=== PATIENT | male | born 1950 | race Caucasian/White ===

== ENCOUNTER 2020-09-30 07:34 | Outpatient (REF) | payer MEDICARE, SELFPAY ==
[2020-09-30 09:02] LABS: MANUAL DIFF FLAG NO
[2020-09-30 09:09] LABS: Basophils Absolute Auto 0.1 X10*3/uL (0.0-0.2); Basophils Percent Auto 1.1 % (0-2); Eosinophils Absolute Auto 0.4 X10*3/uL (0.0-0.4); Eosinophils Percent Auto 5.5 % (0-4); Hematocrit 47.9 % (42-52); Imm Gran Abs Auto 0.02 X10*3/uL (0.00-0.03); Imm Gran Pct Auto 0.3 % (0.0-0.4); Lymphocytes Absolute Auto 2.1 X10*3/uL (1.2-4.9); Lymphocytes Percent Auto 33.2 % (20-40); Mean Corpuscular HGB Conc 33.4 g/dl (31.0-36.0); Mean Corpuscular Hemoglobin 29.7 pg (27.0-33.0); Mean Platelet Volume 10.4 fL (9.4-12.4); Monocytes Absolute Auto 0.7 X10*3/uL (0.1-1.2); Monocytes Percent Auto 10.2 % (2-11); Neutrophils Absolute Auto 3.2 X10*3/uL (2.0-8.3); Neutrophils Percent Auto 49.7 % (45-73); Platelet Count 349 X10*3/uL (160-400); Red Blood Count 5.38 X10*6/uL (4.60-5.80); White Blood Count 6.4 X10*3/uL (4.8-10.8)
[2020-09-30 09:17] LABS: Glucose Urine UA NEG (NEG); Leukocyte Esterase Urine NEG (NEG); Nitrite Urine NEG (NEG); PH 6.5 (5.0-8.0); Urine Blood NEG (NEG); Urine Ketones NEG (NEG); Urine Protein NEG (NEG-TRACE)
[2020-09-30 09:18] LABS: Appearance Urine CLEAR; Color Urine YELLOW
[2020-09-30 09:33] LABS: Alanine Aminotransferase 12 U/L (0-40); Albumin Level 4.3 g/dL (3.5-5.0); Alkaline Phosphatase 84 U/L (39-117); Anion Gap 12 (12-20); Aspartate Amino Transferase 16 U/L (5-37); Bilirubin Total 0.7 mg/dL (0.0-1.0); Blood Urea Nitrogen 14 mg/dL (9-16); Calcium 8.7 mg/dL (8.4-10.2); Carbon Dioxide 24 mmol/L (22-29); Chloride 103 mmol/L (96-108); Cholesterol 194 mg/dL; Estimated Glomerular Filt Rate > 60; Glucose Fasting 98 mg/dL (60-99); HDL Cholesterol 48 mg/dL; LDL Cholesterol Calculated 106 mg/dl; Potassium 4.4 mmol/l (3.3-5.1); Sodium 135 mmol/L (135-145); Total Protein 7.1 g/dL (6.5-8.0); Triglycerides 201 mg/dL
[2020-09-30 09:56] LABS: Prostate Specific Antigen 4.38 ng/mL (<0.05-4.0)
== END 2020-09-30 07:35 | disposition home or self-care (01) ==
LOC: HO.LAB 07:34
PROVIDERS: Visit Provider Internal Medicine
DX: E78.00 Pure hypercholesterolemia, unspecified (principal); I10 Essential (primary) hypertension; N40.0 Benign prostatic hyperplasia without lower urinary tract symptoms; K21.9 Gastro-esophageal reflux disease without esophagitis; M19.90 Unspecified osteoarthritis, unspecified site
CPT/HCPCS: 36415; 80053; 80061; 81003; 84153; 85025

== ENCOUNTER 2020-11-30 15:35 | Outpatient (REF) | payer MEDICARE, BC, SELFPAY | END 2020-11-30 15:36 | disposition home or self-care (01) | LOC: HO.LNP 15:35 | PROVIDERS: Visit Provider Internal Medicine | DX: Z20.822 Contact with and (suspected) exposure to COVID-19 (principal) | CPT/HCPCS: U0003 ==

== ENCOUNTER → 2021-01-27 09:52 | Outpatient (REF) | payer MEDICARE, BC, SELFPAY | LOC: HO.SL 09:52 | PROVIDERS: PCP Internal Medicine; Visit Provider Internal Medicine | DX: G47.33 Obstructive sleep apnea (adult) (pediatric) (principal); R06.83 Snoring | CPT/HCPCS: 95806 ==

== ENCOUNTER → 2021-02-08 13:01 | Outpatient (BNVA) | payer MEDICARE, BC, SELFPAY | PROVIDERS: PCP Internal Medicine; Visit Provider Internal Medicine | DX: G47.33 Obstructive sleep apnea (adult) (pediatric) (principal); G47.34 Idiopathic sleep related nonobstructive alveolar hypoventilation; E66.9 Obesity, unspecified; Z68.30 Body mass index [BMI] 30.0-30.9, adult; Z71.3 Dietary counseling and surveillance; Z79.899 Other long term (current) drug therapy; Z99.89 Dependence on other enabling machines and devices | CPT/HCPCS: 99202 ==

== ENCOUNTER → 2021-02-15 19:30 | Outpatient (REF) | payer MEDICARE, BC, SELFPAY | LOC: HO.SL 19:30 | PROVIDERS: Visit Provider Internal Medicine | DX: G47.34 Idiopathic sleep related nonobstructive alveolar hypoventilation (principal); G47.33 Obstructive sleep apnea (adult) (pediatric) | CPT/HCPCS: 95811 ==

== ENCOUNTER → 2021-04-27 09:51 | Outpatient (BNVA) | payer MEDICARE, BC, SELFPAY | PROVIDERS: PCP Internal Medicine; Visit Provider Internal Medicine | DX: G47.33 Obstructive sleep apnea (adult) (pediatric) (principal); G47.34 Idiopathic sleep related nonobstructive alveolar hypoventilation; E66.9 Obesity, unspecified; Z68.30 Body mass index [BMI] 30.0-30.9, adult; Z99.89 Dependence on other enabling machines and devices; Z79.899 Other long term (current) drug therapy; Z71.3 Dietary counseling and surveillance | CPT/HCPCS: 99212 ==

== ENCOUNTER 2021-04-30 08:30 | Day surgery (SDC) | payer MEDICARE, BC, SELFPAY ==
[2021-04-27 10:40] VITALS: BMI 31.8
--- NOTE | 2021-04-28 14:56 | HO.ANESPROP2 ---
Documented by User: Kassi Dixon 04/28/21 14:57 HPI - Anesthesia Eval Consult details Narrative: 71yo M for Colonoscopy PMFSH Active Problems Active Problems: All Active Problems (Updated 04/27/21 @ 10:39 by aRchel Mendoza) Nocturnal hypoxemia (Acute) OLI (obstructive sleep apnea) (Acute) Obesity (BMI 30-39.9) (Acute) Past Medical History Medical History Arthritis Elevated cholesterol GERD (gastroesophageal reflux disease) History of COVID-19 HTN (hypertension) Irritable bowel syndrome (IBS) Nocturnal hypoxemia Obesity (BMI 30-39.9) OLI (obstructive sleep apnea) Surgical History Surgical History H/O colonoscopy Hx of appendectomy Hx of foot surgery Social History Social History Household Members: Spouse Alcohol intake: current Alcohol intake frequency: a few times a week Patient Tobacco Use Status: Tobacco use Unknown Advance Directives Information Provided: No Meds Allergies Allergy/AdvReac Type Severity Reaction Status Date / Time No Known Allergies Allergy Verified 04/30/21 09:01 Home Medications Medication Instructions Recorded Confirmed Last Taken Type amlodipine 10 mg tablet 10 mg PO DAILY 02/08/21 04/27/21 04/30/21 07:00 History desonide 0.05 % topical cream 1 appl TOPICAL QID 02/08/21 04/27/21 Unknown History ibuprofen 800 mg tablet 800 mg PO BID PRN 02/08/21 04/27/21 Unknown History ketoconazole 2 % shampoo 1 appl TOPICAL 2XW 02/08/21 04/27/21 Unknown History ketoconazole 2 % topical cream 1 appl TOPICAL DAILY 02/08/21 04/27/21 Unknown History lisinopril 10 mg tablet 10 mg PO DAILY 02/08/21 04/27/21 Unknown History omeprazole 20 mg capsule,delayed 20 mg PO DAILY 02/08/21 04/27/21 04/30/21 07:00 History release simvastatin 20 mg tablet 20 mg PO DAILY 02/08/21 04/27/21 Unknown History triamcinolone acetonide 0.1 % 1 appl TOPICAL DIRECTED 02/08/21 04/27/21 Unknown History topical cream dicyclomine 20 mg tablet 20 mg PO QID 04/27/21 04/27/21 Unknown History Exam Exam Date and Time: April 28, 2021 1456 Height,Weight and Vital Signs: Height 5 ft 5 in Weight 86.636 kg Assessment and Plan Assessment Anesthesia Assessment: Chart Reviewed Documented by User: Clari Noyola 04/30/21 09:24 [facility]LY [facility] Past Medical History Medical History Arthritis Elevated cholesterol GERD (gastroesophageal reflux disease) History of COVID-19 HTN (hypertension) Irritable bowel syndrome (IBS) Nocturnal hypoxemia Obesity (BMI 30-39.9) OLI (obstructive sleep apnea) Family History Family history of problems with anesthesia: No Surgical History Surgical History H/O colonoscopy Hx of appendectomy Hx of foot surgery History of Problems with Anesthesia: No Social History Social History Household Members: Spouse Alcohol intake: current Alcohol intake frequency: a few times a week Patient Tobacco Use Status: Tobacco use Unknown Advance Directives Information Provided: No Meds Allergies Allergy/AdvReac Type Severity Reaction Status Date / Time No Known Allergies Allergy Verified 04/30/21 09:01 Home Medications Medication Instructions Recorded Confirmed Last Taken Type amlodipine 10 mg tablet 10 mg PO DAILY 02/08/21 04/27/21 04/30/21 07:00 History desonide 0.05 % topical cream 1 appl TOPICAL QID 02/08/21 04/27/21 Unknown History ibuprofen 800 mg tablet 800 mg PO BID PRN 02/08/21 04/27/21 Unknown History ketoconazole 2 % shampoo 1 appl TOPICAL 2XW 02/08/21 04/27/21 Unknown History ketoconazole 2 % topical cream 1 appl TOPICAL DAILY 02/08/21 04/27/21 Unknown History lisinopril 10 mg tablet 10 mg PO DAILY 02/08/21 04/27/21 Unknown History omeprazole 20 mg capsule,delayed 20 mg PO DAILY 02/08/21 04/27/21 04/30/21 07:00 History release simvastatin 20 mg tablet 20 mg PO DAILY 02/08/21 04/27/21 Unknown History triamcinolone acetonide 0.1 % 1 appl TOPICAL DIRECTED 02/08/21 04/27/21 Unknown History topical cream dicyclomine 20 mg tablet 20 mg PO QID 04/27/21 04/27/21 Unknown History Exam Height,Weight and Vital Signs: Vital Signs Temp Pulse Resp BP Pulse Ox 04/30/21 09:02 97.6 F 79 20 159/77 H 95 Airway Mallampati Class: II TM Dist: >3cm Neck ROM: Full Denture: Upper Heart: RRR Lungs: CTAB Assessment and Plan Assessment Anesthesia Assessment: Anesthesia Plan Discussed and Chart Reviewed Final Anesthetic Review NPO: Yes ASA Class: III Final Preanesthetic Review: No Changes in Pt Med Stat, Meds/Allgs Chart Reviewed, Consent Obtained/Reviewed and Anes Risks/Benef Reviewed Patient Risk: Intermediate Procedure Risk: Low Assessment/Block/Sedation in SS: Assess/Block/Sedation-SS Anesthetic Plan Anesthetic Plan: MAC: Disposition: Standard PACU
[2021-04-30 09:02] VITALS: BP 159/77; PULSE 79; RESP 20; TEMP 36.4; O2SAT 95
--- NOTE | 2021-04-30 09:22 | MHC.SHP ---
Pre-Procedural Eval Section B Chief Complaint: screening Details of Present Illness: see H&P no changes Relevant Family History (Specify if Yes): Yes Relevant Social History: None Present Medications: see Short Stay Collaborative assessment Medical History: No relevant PMH History of Previous Operations: No relevant previous surgery Allergies: Allergies Allergy/AdvReac Type Severity Reaction Status Date / Time No Known Allergies Allergy Verified 04/30/21 09:01 Review of Systems Sugical H&P ROS: Negative: Constitution, Cardiovascular, Respiratory, Neurological, Psychiatric, Hem-Onc, Allergic/Immunologic, Gastrointestinal, Genitourinary, Musculoskeletal, Integumentary, Endocrine and Eyes/Ears/Nose/Throat Exam Surgical H&P Exam: Normal: HEENT, Normal: Heart, Normal: Lungs, Normal: Extremities, Normal: Abdomen, Normal: Skin and Normal: Neurological Plan Diagnosis/Plan: Unchanged I have reviewed the history and physical and performed a pertinent physical examination on my patient. No changes have occurred unless specified.
[2021-04-30] MEDS: Lactated Ringers 1,000 ML 100 ML IVCONT (09:29)
--- NOTE | 2021-04-30 09:55 | P.BOP_ITS ---
Brief Operative Note Date of Service: 04/30/21 Pre-op diagnosis: screening Post-op diagnosis: same Procedure: colonosocpy Surgeon: Bradley Bell Anesthesia: MAC Was an Body Make Up Artist used for this Procedure?: No Estimated blood loss (mL): 5 Pathology: other (polyp x1) Condition: stable Disposition: PACU
[2021-04-30 10:00] VITALS: BP 110/60; PULSE 73; RESP 12; TEMP 36.2; O2SAT 96
[2021-04-30 10:15] VITALS: BP 125/68; PULSE 70; RESP 16; TEMP 36.2; O2SAT 96
--- NOTE | 2021-04-30 10:46 | OP_ITS ---
SURGEON: Bradley Bell MD INDICATIONS: Colon cancer screening. PREOPERATIVE DIAGNOSIS: POSTOPERATIVE DIAGNOSIS: PROCEDURE PERFORMED: Colonoscopy to the terminal ileum with biopsy. ESTIMATED BLOOD LOSS: COMPLICATIONS: ANESTHESIA: ASSISTANTS: SPECIMENS: MEDICATIONS: Monitored anesthesia care. DESCRIPTION OF PROCEDURE: History and physical performed, the risks and benefits of the procedure were explained to the patient. Informed consent was obtained. The patient was placed in left lateral decubitus position. A digital rectal exam was performed and it was found to be normal. The Olympus pediatric video colonoscope was introduced into the rectum and advanced to the cecum without difficulty. The cecum was identified by transillumination, palpation, and identification of ileocecal valve. Examination was performed. The scope was removed. He tolerated the procedure well and was taken to recovery area in stable condition. FINDINGS: The terminal ileum was briefly examined and it appeared normal. The visualized colonic mucosa was normal. There was some liquid stool coating the mucosa. This was washed and suctioned as best possible. A single polyp measuring less than 5 mm was removed with biopsy forceps located at 80 cm from the anal verge. No other polyps were identified. Retroflexed examination showed moderate-sized internal hemorrhoids. IMPRESSION: Colon polyp. RECOMMENDATION: Follow up with the biopsy results. MD ROSEANNE Andrade/CAMIL / [id number]
== END 2021-04-30 11:07 | disposition home or self-care (01) ==
PROVIDERS: PCP Internal Medicine; Visit Provider Internal Medicine Gastroenterology
PROC: 0DJD8ZZ Inspection of Lower Intestinal Tract, Via Natural or Artificial Opening Endoscopic (ICD-10-PCS; CPT 45378; principal; 2021-04-30 09:40)
DX: Z12.11 Encounter for screening for malignant neoplasm of colon (principal); Z80.0 Family history of malignant neoplasm of digestive organs; D12.4 Benign neoplasm of descending colon; K64.8 Other hemorrhoids; K21.9 Gastro-esophageal reflux disease without esophagitis; K58.9 Irritable bowel syndrome, unspecified; I10 Essential (primary) hypertension; E78.5 Hyperlipidemia, unspecified; G47.33 Obstructive sleep apnea (adult) (pediatric); Z79.899 Other long term (current) drug therapy; Z79.1 Long term (current) use of non-steroidal anti-inflammatories (NSAID)
CPT/HCPCS: 45380; 88305

== ENCOUNTER → 2021-09-02 09:54 | Outpatient (BNVA) | payer MEDICARE, BC, SELFPAY | PROVIDERS: PCP Internal Medicine; Visit Provider Internal Medicine | DX: E66.9 Obesity, unspecified (principal); G47.33 Obstructive sleep apnea (adult) (pediatric) | CPT/HCPCS: 99212 ==

== ENCOUNTER 2021-10-11 08:28 | Outpatient (REF) | payer MEDICARE, BC, SELFPAY ==
[2021-10-11 08:46] LABS: MANUAL DIFF FLAG NO
[2021-10-11 09:12] LABS: Basophils Absolute Auto 0.1 X10*3/uL (0.0-0.2); Basophils Percent Auto 0.9 % (0-2); Eosinophils Absolute Auto 0.5 X10*3/uL (0.0-0.4); Eosinophils Percent Auto 7.1 % (0-4); Hematocrit 46.6 % (42.0-52.0); Hemoglobin 15.7 g/dl (14.0-18.0); Imm Gran Abs Auto 0.03 X10*3/uL (0.00-0.03); Imm Gran Pct Auto 0.4 % (0.0-0.4); Lymphocytes Absolute Auto 1.9 X10*3/uL (1.2-4.9); Lymphocytes Percent Auto 25.3 % (20-40); Mean Corpuscular HGB Conc 33.7 g/dl (31.0-36.0); Mean Corpuscular Hemoglobin 29.1 pg (27.0-33.0); Mean Corpuscular Volume 86.5 fL (80.0-98.0); Mean Platelet Volume 9.7 fL (9.4-12.4); Monocytes Absolute Auto 0.7 X10*3/uL (0.1-1.2); Monocytes Percent Auto 9.8 % (2-11); Neutrophils Absolute Auto 4.3 x10*3/uL (2.0-8.3); Neutrophils Percent Auto 56.5 % (45-73); Platelet Count 338 X10*3/uL (160-400); Red Blood Count 5.39 X10*6/uL (4.60-5.80); Red Cell Distribution Width 13.6 % (11.0-16.0); White Blood Count 7.6 X10*3/uL (4.8-10.8)
[2021-10-11 09:40] LABS: Alanine Aminotransferase 18 U/L (0-40); Albumin Level 4.3 g/dL (3.5-5.0); Alkaline Phosphatase 89 U/L (39-117); Anion Gap 15 (12-20); Aspartate Amino Transferase 17 U/L (5-37); Bilirubin Total 0.6 mg/dL (0.0-1.0); Blood Urea Nitrogen 10 mg/dL (9-16); Calcium 8.9 mg/dL (8.4-10.2); Carbon Dioxide 20 mmol/L (22-29); Chloride 108 mmol/L (96-108); Cholesterol 179 mg/dL; Estimated Glomerular Filt Rate > 60; Glucose Fasting 106 mg/dL (60-99); HDL Cholesterol 45 mg/dL; LDL Cholesterol Calculated 108 mg/dl; Potassium 4.4 mmol/L (3.3-5.1); Sodium 139 mmol/L (135-145); Total Protein 7.2 g/dL (6.5-8.0); Triglycerides 134 mg/dL
[2021-10-11 10:03] LABS: Prostate Specific Antigen 5.03 ng/mL (<0.05-4.0)
== END 2021-10-11 08:29 | disposition home or self-care (01) ==
LOC: HO.LAB 08:28
PROVIDERS: PCP Internal Medicine; Visit Provider Internal Medicine
DX: Z12.5 Encounter for screening for malignant neoplasm of prostate (principal); I10 Essential (primary) hypertension; E78.00 Pure hypercholesterolemia, unspecified; N40.0 Benign prostatic hyperplasia without lower urinary tract symptoms; M19.90 Unspecified osteoarthritis, unspecified site
CPT/HCPCS: 36415; 80053; 80061; 84153; 85025

== ENCOUNTER 2021-10-15 11:30 | Outpatient (REF) | payer MEDICARE, BC, SELFPAY ==
--- NOTE | ~2021-10-15 | XR_ITS ---
EXAMINATION: XR LUMBOSACRAL SPINE CLINICAL INFORMATION: Back pain. COMPARISON: MR lumbar spine dated from 04/18/2017. TECHNIQUE: Three views of the lumbosacral spine. FINDINGS: There is very mild 1- 2 mm of anterolisthesis of L5 on S1 which is similar when compared to the study from 2017. No evidence of acute compression deformities or malalignment. There is moderate lumbar spondylosis with disc space narrowing, osteophytes and bilateral facet arthropathy at multiple levels leading to varying degrees of neural foraminal encroachment and central spinal canal stenosis. Atherosclerotic disease of the abdominal aorta. XR/XR lumbar spine 2-3V IMPRESSION: No acute fractures or malalignment. Mild to moderate lumbar spondylosis leading to varying degrees of neural foraminal encroachment and central canal narrowing which could be better assessed with an MR of the lumbar spine if clinically indicated.
--- NOTE | ~2021-10-15 | XR_ITS ---
EXAMINATION: XR PELVIS CLINICAL INFORMATION: Pain. COMPARISON: None TECHNIQUE: CT of the abdomen and pelvis dated from 04/24/2014. FINDINGS: No acute fractures or malalignment. The femoral heads are well-seated in the acetabula. There are mild to moderate degenerative changes in both hips. There are enthesophytes in both ischial tuberosities. There is a normal appearance of the sacroiliac joints. XR/XR pelvis 1-2V IMPRESSION: No acute fractures or malalignment. 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
== END 2021-10-15 11:31 | disposition home or self-care (01) ==
LOC: HO.XRAY 11:30
PROVIDERS: PCP Internal Medicine; Visit Provider Internal Medicine
DX: M54.9 Dorsalgia, unspecified (principal)
CPT/HCPCS: 72100; 72170

== ENCOUNTER 2021-10-29 14:56 | Outpatient (REF) | payer MEDICARE, BC, SELFPAY ==
--- NOTE | ~2021-10-29 | MR_ITS ---
EXAMINATION: MR LUMBAR SPINE WITHOUT CONTRAST CLINICAL INFORMATION: 71-year-old with complaints of low back pain with shooting pain on the right side. Spondylosis with varying neural foraminal encroachment on x-rays. COMPARISON: 04/18/2017 MRI TECHNIQUE: MRI of the lumbar spine was obtained using routine sequences without contrast. FINDINGS: Coronal Alignment: Normal. Sagittal Alignment: There is trace anterolisthesis at L4-L5, which is a new finding. Lumbar lordotic curvature is maintained. There is trace retrolisthesis at L1-L2 on the current exam, also a new finding. Lumbosacral Junction: Normal. Vertebral Bodies: Normal height. Disc Spaces and Endplates: Slight disc space height loss and disc desiccation developed at L4-L5 since previous study. Otherwise, the intervertebral disc space heights are well maintained throughout the lumbar spine, stable from previous exam. There is moderate disc space height loss, disc desiccation and Schmorl's nodes at T11-T12 with mild spondylosis, stable in appearance. There are mild degrees of anterior marginal spondylosis at the levels between T12-L1 and L5-S1 inclusive, most apparent at L1-L2 and L2-L3, largely stable in appearance from previous exam. There is multilevel disc desiccation, similar to the previous study. Spinal Canal: No abnormal developmental findings. Bone Marrow: No significant marrow-replacing process or bone marrow edema. Conus Medullaris: Terminates at L1-L2. Morphology and signal is normal. Intradural Nerve Roots: Within normal limits. L5-S1: Mild diffuse disc bulging is again noted, with slight flattening of the dural sac, stable in appearance. There is moderate right-sided facet hypertrophic degenerative change, slightly progressed from previous study laterally. There is [id number] right-sided neural foraminal stenosis, stable in appearance, with encroachment on the exiting right L5 nerve root again noted, unchanged. Mild left-sided neural foraminal stenosis is stable without neural impingement. No significant spinal canal stenosis. L4-L5: Slight anterolisthesis and disc desiccation has developed at this level since the previous exam. Redemonstrated is minor annular bulging. There is nfoz-vl-[id number] right-sided and moderate left-sided facet arthropathy, slightly progressed on the left from previous exam. No significant spinal canal stenosis. There is a tiny synovial cyst along the medial aspect of the right facet joint which is a new finding measuring 3 mm. There is mild bilateral neural foraminal stenosis without definite neural impingement, unchanged in appearance. L3-L4: No disc bulge or herniation and no significant canal or neuroforaminal stenosis. Pint-qs-mjjavpcs facet arthropathy, left more than right, stable in appearance. L2-L3: Mild disc bulging again noted with slight flattening of the ventral dural sac, stable in appearance. Mild facet hypertrophic changes, left more than right, stable in appearance without significant canal or neuroforaminal stenosis. L1-L2: Minor disc bulging, stable in appearance without significant facet arthrosis, canal or neuroforaminal stenosis unchanged. Paraspinal/Retroperitoneal: The visualized paravertebral soft tissues appear grossly unremarkable. Redemonstrated on the siebel administrator view is prostatic enlargement indenting the base of the urinary bladder, similar to the previous study. MR/MR lumbar spine wo con IMPRESSION: 1. Minor discogenic degenerative changes developed at L4-L5 since previous exam, with trace anterolisthesis at this level and some progression of facet arthropathy on the left since previous study with development of a tiny synovial cyst on the right, with stable mild bilateral neural foraminal stenosis without significant canal stenosis. 2. Stable mild disc bulging and spondylosis at L5-S1 with facet arthropathy on the right mildly progressed, with ybzmkcyh-kj-ewjxcw right-sided and mild left-sided neural foraminal stenosis with right L5 nerve root impingement, stable in appearance. 3. Other levels of minor disc bulging are stable, as detailed above. 4. Prostatic enlargement again noted.
== END 2021-10-29 14:57 | disposition home or self-care (01) ==
LOC: HO.MRI 14:56
PROVIDERS: PCP Internal Medicine; Visit Provider Internal Medicine
DX: M47.816 Spondylosis without myelopathy or radiculopathy, lumbar region (principal)
CPT/HCPCS: 72148

== ENCOUNTER → 2022-03-03 09:14 | Outpatient (BNVA) | payer MEDICARE, BC, SELFPAY | PROVIDERS: PCP Internal Medicine; Visit Provider Internal Medicine | DX: G47.33 Obstructive sleep apnea (adult) (pediatric) (principal); G47.34 Idiopathic sleep related nonobstructive alveolar hypoventilation; E66.9 Obesity, unspecified; Z68.31 Body mass index [BMI] 31.0-31.9, adult | CPT/HCPCS: 99212 ==

== ENCOUNTER 2022-04-11 11:01 | Outpatient (REF) | payer MEDICARE, BC, SELFPAY ==
[2022-04-11 13:33] LABS: MANUAL DIFF FLAG NO
[2022-04-11 13:36] LABS: Basophils Percent Auto 0.6 % (0-2); Eosinophils Absolute Auto 0.1 X10*3/uL (0.0-0.4); Hematocrit 47.2 % (42.0-52.0); Hemoglobin 15.9 g/dl (14.0-18.0); Imm Gran Abs Auto 0.02 X10*3/uL (0.00-0.03); Imm Gran Pct Auto 0.3 % (0.0-0.4); Lymphocytes Absolute Auto 1.5 X10*3/uL (1.2-4.9); Lymphocytes Percent Auto 23.3 % (20-40); Mean Corpuscular HGB Conc 33.7 g/dl (31.0-36.0); Mean Corpuscular Hemoglobin 29.3 pg (27.0-33.0); Mean Corpuscular Volume 86.9 fL (80.0-98.0); Mean Platelet Volume 10.1 fL (9.4-12.4); Monocytes Absolute Auto 0.8 X10*3/uL (0.1-1.2); Monocytes Percent Auto 12.1 % (2-11); Neutrophils Percent Auto 61.7 % (45-73); Platelet Count 337 X10*3/uL (160-400); Red Blood Count 5.43 X10*6/uL (4.60-5.80); Red Cell Distribution Width 13.9 % (11.0-16.0); White Blood Count 6.5 X10*3/uL (4.8-10.8)
[2022-04-11 13:48] LABS: Appearance Urine CLEAR; Color Urine YELLOW; Glucose Urine UA NEG (NEG); Leukocyte Esterase Urine NEG (NEG); Nitrite Urine NEG (NEG); UACC Culture Trigger NO; Urine Blood 3+ (NEG); Urine Ketones NEG (NEG); Urine Protein NEG (NEG-TRACE)
[2022-04-11 14:02] LABS: Alanine Aminotransferase 18 U/L (0-40); Albumin Level 4.4 g/dL (3.5-5.0); Alkaline Phosphatase 88 U/L (39-117); Anion Gap 12 (12-20); Aspartate Amino Transferase 16 U/L (5-37); Blood Urea Nitrogen 11 mg/dL (9-16); C Reactive Protein 1.19 mg/dL (< or = 0.50); Calcium 9.4 mg/dL (8.4-10.2); Carbon Dioxide 25 mmol/L (22-29); Chloride 103 mmol/L (96-108); Estimated Glomerular Filt Rate > 60; Glucose Random 109 mg/dL (60-115); Potassium 4.4 mmol/L (3.3-5.1); Sodium 136 mmol/L (135-145); Total Protein 7.6 g/dL (6.5-8.0)
[2022-04-11 14:15] LABS: RBC Urine 50-75 /HPF (0)
== END 2022-04-11 11:02 | disposition home or self-care (01) ==
LOC: HO.10HDL 11:01
PROVIDERS: Visit Provider Internal Medicine
DX: R10.9 Unspecified abdominal pain (principal); R30.0 Dysuria; I10 Essential (primary) hypertension
CPT/HCPCS: 36415; 80053; 81001; 81003; 85025; 86140; 87086

== ENCOUNTER 2022-04-12 14:33 | Outpatient (REF) | payer MEDICARE, BC, SELFPAY ==
--- NOTE | ~2022-04-12 | US_ITS ---
EXAMINATION: US RETROPERITONEAL LIMITED (RENAL ONLY) CLINICAL INFORMATION: Hematuria. COMPARISON: Ultrasound abdomen complete 04/07/2017. CT abdomen and pelvis 04/24/2014. TECHNIQUE: Real-time imaging of the kidneys. FINDINGS: RIGHT KIDNEY: 13.5 x 6.3 x 4.9 cm (SAG x AP x TRV). The kidney is normal in size, contour, and echogenicity. Renal cortical thickness is normal. No focal parenchymal lesions or hydronephrosis. Punctate 4 mm shadowing focus in the right lower renal pole may reflect a stone. LEFT KIDNEY: 13.5 x 6.9 x 6.1 cm (SAG x AP x TRV). The kidney is normal in size, contour, and echogenicity. Renal cortical thickness is normal. No focal parenchymal lesions or hydronephrosis. 3 mm shadowing focus in the left upper renal pole may reflect a stone. US/US renal BI IMPRESSION: Bilateral echogenic foci with shadowing favored to reflect renal stones measuring 3 mm on the left and 4 mm on the right.
== END 2022-04-12 14:34 | disposition home or self-care (01) ==
LOC: HO.US 14:33
PROVIDERS: PCP Internal Medicine; Visit Provider Internal Medicine
DX: R31.9 Hematuria, unspecified (principal)
CPT/HCPCS: 76775

== ENCOUNTER 2022-04-20 09:59 | Outpatient (REF) | payer MEDICARE, BC, SELFPAY ==
--- NOTE | ~2022-04-20 | CT_ITS ---
EXAMINATION: CT ABDOMEN AND PELVIS WITHOUT CONTRAST CLINICAL INFORMATION: Hematuria with bilateral kidney stones, question obstruction. COMPARISON: 04/24/2014 TECHNIQUE: Multidetector volumetric imaging was performed from the superior aspect of the liver through the pubic symphysis. Sagittal and coronal reformatted images were obtained on the technologist's workstation. This CT examination was performed using dose optimization techniques as appropriate, variously including the following: *Automated exposure control *Adjustment of mA and/or kV according to patient size (this includes techniques or standardized protocols for targeted exams where dose is matched to indication/reason for exam; i.e. extremities or head) *Use of iterative reconstruction technique DLP: 479 mGy-cm FINDINGS: LUNG BASES: The visualized lung bases are unremarkable. LIVER, GALLBLADDER, AND BILIARY TREE: Area of decreased attenuation within the liver which is large in the right lobe. This may well represent fatty change. Ultrasound would be recommended for full evaluation. The gallbladder is unremarkable with no evidence of radiopaque gallstones, gallbladder wall thickening, or obvious pericholecystic inflammatory changes. PANCREAS: Unremarkable. SPLEEN: Unremarkable. ADRENAL GLANDS: Unremarkable. KIDNEYS AND URETERS: Nonobstructing calculi. Ureters are nondilated into the bladder. There is a 4 mm nonobstructing calculus in the mid to lower pole and a 3 mm nonobstructing calculus in the lower pole of the right kidney. Tiny 2 mm nonobstructing calculus lower pole left kidney. There is also a tiny 1 -2 mm nonobstructing calculus upper pole left kidney. BLADDER: There is a calcification in the bladder. It is central. It measures 7 mm. This could be a recently passed stone or calcification within the bladder wall or possibly the superior aspect of the prostate. This could possibly be in the internal sphincter of the urethra. Bladder wall is thickened. This could represent cystitis or hypertrophy. The prostate is quite prominent in size. GASTROINTESTINAL TRACT: Diverticulosis. No evidence for diverticulitis. ABDOMINAL WALL: No significant hernia is appreciated. LYMPH NODES: Some shotty nodes. No bulky adenopathy. VASCULAR: Atherosclerotic changes. PELVIC VISCERA: Prominent prostate, as noted. OSSEOUS STRUCTURES: Unremarkable. CT/CT abdomen pelvis wo con IMPRESSION: There are nonobstructing renal calculi, as described. There is also a 7 mm calculus as described centrally intimately associated with the bladder wall. I suspect this may well be a calculus in the region of the internal sphincter of the proximal prostatic urethra. Differential would include calculus within the bladder or possibly calcification of the bladder wall. The prostate is prominent here. Mild bladder wall thickening may be hypertrophy. Diverticulosis but no evidence for diverticulitis. Probable geographic distribution of fatty change within the liver but ultrasound would be recommended to confirm Fleischner guidelines were followed.
== END 2022-04-20 10:00 | disposition home or self-care (01) ==
LOC: HO.CT 09:59
PROVIDERS: PCP Internal Medicine; Visit Provider Internal Medicine
DX: R31.9 Hematuria, unspecified (principal); N20.0 Calculus of kidney
CPT/HCPCS: 74176

== ENCOUNTER 2022-06-21 08:46 | Outpatient (REF) | payer MEDICARE, BC, SELFPAY ==
--- NOTE | ~2022-06-21 | MR_ITS ---
EXAMINATION: MR ABDOMEN WITHOUT AND WITH CONTRAST CLINICAL INFORMATION: Assess liver lesion COMPARISON: CT 04/20/2022 TECHNIQUE: MR abdomen was performed without and with use of 8.5 mL intravenous Gadavist gadolinium contrast. Postcontrast images are performed in multiphase dynamic sequences. Imaging was performed in 3 planes. FINDINGS: LUNG BASES: The visualized lung bases are unremarkable. LIVER, GALLBLADDER, AND BILIARY TREE: Normal size of the liver. There is a normal contour. On T2-weighted imaging there is a region which is mostly involving segments 5 and 8 which is slightly increased in T2 signal. This does not have a masslike appearance. On out of phase imaging, there is signal dropout which is greatest in this area, suggestive of nonuniform fatty infiltration. No focal hepatic lesion or biliary ductal dilatation is present. The gallbladder is unremarkable with no evidence of gallbladder wall thickening, or obvious pericholecystic inflammatory changes. PANCREAS: Unremarkable. SPLEEN: Normal. ADRENAL GLANDS: Normal. KIDNEYS AND URETERS: The kidneys are normal in size, shape, and enhance symmetrically. No hydronephrosis. No perinephric stranding. A few small cysts are seen bilaterally. No follow-up imaging recommended. GASTROINTESTINAL TRACT: No bowel obstruction. No ascites or fluid collection. ABDOMINAL WALL: No significant hernia is appreciated. LYMPH NODES: No lymphadenopathy. VASCULAR: Normal caliber aorta. Retroaortic left renal vein. The portal vein is patent. OSSEOUS STRUCTURES: Marrow signal normal. MR/MR abdomen wo/w con IMPRESSION: There is nonuniform fatty infiltration throughout the liver with a regional area of the right lobe which is more prominent than the rest. This corresponds to the appearance on previous CT. There is no focal liver mass.
== END 2022-06-21 08:47 | disposition home or self-care (01) ==
LOC: HO.MRI 08:46
PROVIDERS: Visit Provider Internal Medicine
DX: K76.89 Other specified diseases of liver (principal)
CPT/HCPCS: 74183; A9585

== ENCOUNTER → 2022-09-06 09:15 | Outpatient (BNVA) | payer MEDICARE, BC, SELFPAY | PROVIDERS: PCP Internal Medicine; Visit Provider Internal Medicine | DX: G47.33 Obstructive sleep apnea (adult) (pediatric) (principal); E66.9 Obesity, unspecified; G47.34 Idiopathic sleep related nonobstructive alveolar hypoventilation; Z68.33 Body mass index [BMI] 33.0-33.9, adult | CPT/HCPCS: 99212 ==

== ENCOUNTER 2022-11-10 07:59 | Outpatient (REF) | payer MEDICARE, BC, SELFPAY ==
[2022-11-10 08:17] LABS: MANUAL DIFF FLAG NO
[2022-11-10 08:29] LABS: Basophils Percent Auto 0.5 % (0-2); Eosinophils Absolute Auto 0.2 X10*3/uL (0.0-0.4); Eosinophils Percent Auto 2.5 % (0-4); Hematocrit 47.5 % (42.0-52.0); Hemoglobin 16.1 g/dl (14.0-18.0); Imm Gran Abs Auto 0.03 X10*3/uL (0.00-0.03); Imm Gran Pct Auto 0.4 % (0.0-0.4); Lymphocytes Absolute Auto 2.3 X10*3/uL (1.2-4.9); Lymphocytes Percent Auto 30.6 % (20-40); Mean Corpuscular HGB Conc 33.9 g/dl (31.0-36.0); Mean Corpuscular Hemoglobin 29.5 pg (27.0-33.0); Mean Corpuscular Volume 87.2 fL (80.0-98.0); Mean Platelet Volume 8.7 fL (9.4-12.4); Monocytes Absolute Auto 0.7 X10*3/uL (0.1-1.2); Monocytes Percent Auto 9.3 % (2-11); Neutrophils Absolute Auto 4.3 x10*3/uL (2.0-8.3); Neutrophils Percent Auto 56.7 % (45-73); Platelet Count 316 X10*3/uL (160-400); Red Blood Count 5.45 X10*6/uL (4.60-5.80); Red Cell Distribution Width 13.2 % (11.0-16.0); White Blood Count 7.5 X10*3/uL (4.8-10.8)
[2022-11-10 08:58] LABS: Alanine Aminotransferase 18 U/L (0-40); Albumin Level 4.3 g/dL (3.5-5.0); Alkaline Phosphatase 85 U/L (39-117); Anion Gap 13 (12-20); Aspartate Amino Transferase 13 U/L (5-37); Bilirubin Total 0.8 mg/dL (0.0-1.0); Blood Urea Nitrogen 11 mg/dL (9-16); Calcium 9.4 mg/dL (8.4-10.2); Carbon Dioxide 26 mmol/L (22-29); Chloride 103 mmol/L (96-108); Cholesterol 194 mg/dL; Estimated Glomerular Filt Rate > 60; Glucose Fasting 111 mg/dL (60-99); HDL Cholesterol 55 mg/dL; LDL Cholesterol Calculated 120 mg/dl; Potassium 4.6 mmol/L (3.3-5.1); Sodium 137 mmol/L (135-145); Total Protein 6.7 g/dL (6.5-8.0); Triglycerides 99 mg/dL
== END 2022-11-10 08:00 | disposition home or self-care (01) ==
LOC: HO.LAB 07:59
PROVIDERS: PCP Internal Medicine; Visit Provider Internal Medicine
DX: I10 Essential (primary) hypertension (principal); E78.00 Pure hypercholesterolemia, unspecified; N40.0 Benign prostatic hyperplasia without lower urinary tract symptoms; G47.33 Obstructive sleep apnea (adult) (pediatric); K21.9 Gastro-esophageal reflux disease without esophagitis
CPT/HCPCS: 36415; 80053; 80061; 85025

== ENCOUNTER → 2023-03-07 09:27 | Outpatient (BNVA) | payer MEDICARE, BC, SELFPAY | PROVIDERS: PCP Internal Medicine; Visit Provider Internal Medicine | DX: G47.33 Obstructive sleep apnea (adult) (pediatric) (principal); E66.9 Obesity, unspecified; Z68.31 Body mass index [BMI] 31.0-31.9, adult | CPT/HCPCS: 99212 ==

== ENCOUNTER 2023-05-18 10:12 | Outpatient (REF) | payer MEDICARE, BC, SELFPAY ==
[2023-05-18 13:29] LABS: MANUAL DIFF FLAG NO
[2023-05-18 13:42] LABS: Basophils Percent Auto 0.7 % (0-2); Eosinophils Absolute Auto 0.2 X10*3/uL (0.0-0.4); Eosinophils Percent Auto 2.9 % (0-4); Hemoglobin 15.7 g/dl (14.0-18.0); Imm Gran Abs Auto 0.03 X10*3/uL (0.00-0.03); Imm Gran Pct Auto 0.5 % (0.0-0.4); Lymphocytes Absolute Auto 1.6 X10*3/uL (1.2-4.9); Lymphocytes Percent Auto 26.8 % (20-40); Mean Corpuscular HGB Conc 33.4 g/dl (31.0-36.0); Mean Corpuscular Hemoglobin 29.3 pg (27.0-33.0); Mean Corpuscular Volume 87.7 fL (80.0-98.0); Mean Platelet Volume 10.2 fL (9.4-12.4); Monocytes Absolute Auto 0.6 X10*3/uL (0.1-1.2); Monocytes Percent Auto 10.2 % (2-11); Neutrophils Absolute Auto 3.5 x10*3/uL (2.0-8.3); Neutrophils Percent Auto 58.9 % (45-73); Platelet Count 329 X10*3/uL (160-400); Red Blood Count 5.36 X10*6/uL (4.60-5.80); Red Cell Distribution Width 14.5 % (11.0-16.0); White Blood Count 5.9 X10*3/uL (4.8-10.8)
[2023-05-18 13:45] LABS: Estimated Average Glucose 105 mg/dL; Hemoglobin A1c % 5.3 %
[2023-05-18 13:49] LABS: Alanine Aminotransferase 17 U/L (0-40); Albumin Level 4.3 g/dL (3.5-5.0); Alkaline Phosphatase 83 U/L (39-117); Anion Gap 11 (12-20); Aspartate Amino Transferase 16 U/L (5-37); Bilirubin Total 0.9 mg/dL (0.0-1.0); Blood Urea Nitrogen 8 mg/dL (9-16); Calcium 9.1 mg/dL (8.4-10.2); Carbon Dioxide 25 mmol/L (22-29); Chloride 105 mmol/L (96-108); Estimated Glomerular Filt Rate > 60; Glucose Random 97 mg/dL (60-115); Sodium 137 mmol/L (135-145); Total Protein 7.4 g/dL (6.5-8.0)
== END 2023-05-18 10:13 | disposition home or self-care (01) ==
LOC: HO.10HDL 10:12
PROVIDERS: Visit Provider Internal Medicine
DX: I10 Essential (primary) hypertension (principal); N40.0 Benign prostatic hyperplasia without lower urinary tract symptoms; K21.9 Gastro-esophageal reflux disease without esophagitis; R73.03 Prediabetes; K58.9 Irritable bowel syndrome, unspecified
CPT/HCPCS: 36415; 80053; 83036; 85025

== ENCOUNTER 2023-08-04 07:28 | Outpatient (REF) | payer MEDICARE, BC, SELFPAY ==
--- NOTE | ~2023-08-04 | CT_ITS ---
EXAMINATION: CT MAXILLOFACIAL WITHOUT CONTRAST CLINICAL INFORMATION: Difficulty breathing with nasal valve collapse and congestion. COMPARISON: None available. TECHNIQUE: Multidetector helical imaging was performed in the axial plane with generation of coronal and sagittal reformatted images. This CT examination was performed using dose optimization techniques as appropriate, variously including the following: *Automated exposure control *Adjustment of mA and/or kV according to patient size (this includes techniques or standardized protocols for targeted exams where dose is matched to indication/reason for exam; i.e. extremities or head) *Use of iterative reconstruction technique DLP: 298 mGy-cm. FINDINGS: There is mild mucosal thickening along the hodge of the left maxillary sinus. Mild posterior ethmoid sinus mucosal thickening also evident bilaterally. The remaining paranasal sinuses are well aerated. There is a significant leftward deviation of the nasal septum with nasal septal spurring distorting the left-sided turbinates and resulting in asymmetric narrowing of the left internal nasal valve. The ostiomeatal complexes are clear. The lamina papyracea are intact. The ethmoid roofs are asymmetric. The carotid canals are normally covered by bone. There is no maxillary or mandibular dentition. The mastoid air cells and visualized middle ear cavities are well aerated. The orbits are normal. The TMJs are unremarkable. The imaged portions of the brain demonstrate no acute abnormality. Incidental small 8 mm submucosal retention cyst along the lateral wall of the right vallecula. Reversal of the normal cervical lordosis evident with exuberant endplate sclerosis, a retrosubluxation, and disc space narrowing at the C4-C5 level. Disc-osteophyte complex with significant foraminal encroachment partially visualized at the C5-C6 level as well. CT/CT facial bones wo IV con IMPRESSION: Mild left maxillary and posterior ethmoid sinus mucosal thickening. Significant leftward nasal septal deviation with nasal septal spurring distorting the left-sided turbinates. Asymmetric narrowing of the left internal nasal valve. Severe spondylosis at the C4-C5 and C5-C6 levels with a reversal of the normal cervical lordosis.
== END 2023-08-04 07:29 | disposition home or self-care (01) ==
LOC: HO.CT 07:28
PROVIDERS: PCP Internal Medicine; Visit Provider Surgery Plastic and Reconstructive Surgery
DX: J34.89 Other specified disorders of nose and nasal sinuses (principal); R09.81 Nasal congestion
CPT/HCPCS: 70486

== ENCOUNTER 2023-09-05 09:29 | Outpatient (REF) | payer MEDICARE, BC, SELFPAY | END 2023-09-05 09:30 | disposition home or self-care (01) | LOC: HO.LAB 09:29 | PROVIDERS: Absent Provider Internal Medicine; PCP Internal Medicine; Visit Provider Internal Medicine | DX: I10 Essential (primary) hypertension (principal); R73.03 Prediabetes; E66.9 Obesity, unspecified; G47.33 Obstructive sleep apnea (adult) (pediatric); G47.34 Idiopathic sleep related nonobstructive alveolar hypoventilation | CPT/HCPCS: 36415; 80048; 83036; 99212 ==

== ENCOUNTER 2023-09-05 09:29 | Outpatient (AMB) | payer MEDICARE, BC, SELFPAY ==
--- NOTE | 2023-09-05 09:32 | MHC.OFFVIS ---
Intake Vital Signs 09/05/23 09:36 Height 5 ft 5 in Weight 202 lb BMI 33.6 BP 140/60 H Blood Pressure Location Lt brachial Position Sitting Pulse 68 Pulse Source Pulse Oximeter Pulse Oximetry (%) 96 Oxygen Delivery Method Room Air Intake Visit Reasons: Obstructive sleep apnea Intake Note: pt is here for follow up and states he had to stop cpap due to injury his nose and will restart as soon as his sore his healed, he fell on 08/27. Aircraft Mechanic Armament Required: No Allergies No Known Allergies Allergy (Verified 09/05/23 09:58) Medication List - Last Reconciled 09/05/23 by Elpidio Gonzales MD amlodipine 10 mg PO DAILY ibuprofen 800 mg PO BID PRN lisinopril 10 mg PO DAILY omeprazole 20 mg PO DAILY Do you need a note to return to daycare/school/sports/work: No HPI Obstructive sleep apnea HPI Details Admin is 73 years old very pleasant gentleman, He is a regular user of CPAP and sleeps well. However since August 27, after a fall and hurting his nose he has not been able to use the CPAP. He still has a big ulcerated area on the nose, and it might take a few more weeks before he can use the mask. Anyway he is trying to sleep in lateral position and sleeps well. Denies any daytime sleepiness. He has been vocation Ng lately and has put on about 10 lb of weight of which he is fully aware of. [facility] Medical History History of COVID-19 Irritable bowel syndrome (IBS) Arthritis Elevated cholesterol HTN (hypertension) GERD (gastroesophageal reflux disease) Nocturnal hypoxemia OLI (obstructive sleep apnea) Obesity (BMI 30-39.9) Surgical History Hx of foot surgery Hx of appendectomy H/O colonoscopy Social History Household Members: Spouse Alcohol intake: current Alcohol intake frequency: a few times a week Patient Tobacco Use Status: Former Tobacco user Review of Systems Const All systems reviewed & are unremarkable except as noted in HPI and below Eyes Reports no additional complaints ENT Reports nasal congestion (Mild off and on.) Card Denies chest pain, Denies irregular heart rhythm and Denies leg edema Resp Reports no additional complaints GI Reports heartburn (Controlled with omeprazole) Reports no additional complaints Musc Reports back pain (Off and on) Skin/Breast Reports system reviewed and no additional complaints, except as documented Neuro Reports no additional complaints Psych Reports anxiety Physical Exam Vital Signs: Last Vital Signs Pulse 68 09/05/23 09:36 BP 140/60 H 09/05/23 09:36 Pulse Ox 96 09/05/23 09:36 Oxygen Delivery Method Room Air 09/05/23 09:36 BMI result Body Mass Index 33.6 Const General: healthy appearing, comfortable, no acute distress, alert and awake Orientation/consciousness: patient oriented x3 HEENT Other: Has an ulcerated area, on the bridge of the nose, due to a recent fall. Head: Yes normal to inspection General nose exam: No nasal polyps present and No nasal discharge present Face and sinus: Yes sinuses nontender Mouth: oropharynx normal Throat: Yes posterior oropharynx normal Eyes General: appearance normal, both eyes and all related structures Neck Neck: Yes normal visual inspection, Yes no lymphadenopathy, Yes trachea midline and Yes no JVD Thyroid: Thyroid normal Chest Chest palpation & inspection: normal inspection of the chest, normal palpation of entire chest wall and no tenderness Resp Effort & Inspection: normal respiratory effort Auscultation: clear to auscultation bilaterally and no wheezes Percussion: percussion normal Cardio Palpation: normal PMI Rate: regular rate Rhythm: regular rhythm Heart sounds: no gallops and no murmurs Peripheral pulses: Peripheral pulses 2+ throughout GI Palpation (GI): Soft to palpation, nontender, No hepatosplenomegaly present, no masses and Other GI palpation findings present (ABDOMEN MODERATELY OBESE AND SOMEWHAT PROTUBERANT) Auscultation: normal bowel sounds Back/Spine/Pelvis Thoracic/Lumbar Spine: thoracic and lumbar spine normal to inspection Skin General skin exam: no rashes or lesions noted Neuro General: patient oriented x3 and no focal motor deficits Cranial nerves: Yes CN's II-XII intact bilaterally Extrem General: Yes normal to inspection, Yes no clubbing, cyanosis or edema and Yes no calf tenderness Psych Appearance: grossly normal and well kempt Speech and movement: Normal speech and movement present Results Reviewed Results Reviewed: His compliance report is reviewed which is available up to August 26 year. He used 27/30 nights, 90% of the time with an average use it per night of 8 hours 47 minute. His pressure is relatively low, 10 cm. And he did have residual AHI of 5.7 Assessment & Plan Assessment & Plan (1) Obesity (BMI 30-39.9): Comment: Patient is moderately obese, he gained some weight in the last few months , and is well aware of this. He is going to try to lose about 10 lb of weight in the next few months. He will cut down the calories intake ,, and keep on walking at least 2 - 3 miles daily . Code(s): E66.9 - Obesity, unspecified (2) OLI (obstructive sleep apnea): Comment: Very compliant,, and benefiting from the use of CPAP. Except for minor issues he has no major problem. Encouraged to continue using it regularly. * currently not able to use the CPAP because of injury to his nose, He is advised to start using it regularly as soon as the skin ulceration is healed. Will be rechecked every 6 months. Code(s): G47.33 - Obstructive sleep apnea (adult) (pediatric) (3) Nocturnal hypoxemia: Comment: Nocturnal hypoxemia as a part of obstructive sleep apnea plus hypoventilation. Resolved with the use of CPAP. Code(s): G47.34 - Idiopathic sleep related nonobstructive alveolar hypoventilation Coding Level of Care Code Est Pt Level 3 (37011) Diagnoses Obesity (BMI 30-39.9) E66.9 OLI (obstructive sleep apnea) G47.33 Nocturnal hypoxemia G47.34
[2023-09-05 09:36] VITALS: BP 140/60; PULSE 68; O2SAT 96; BMI 33.6
== END 2023-09-05 10:01 | disposition home or self-care (01) ==
PROVIDERS: PCP Internal Medicine; Visit Provider Internal Medicine
DX: E66.9 Obesity, unspecified (principal); G47.33 Obstructive sleep apnea (adult) (pediatric); G47.34 Idiopathic sleep related nonobstructive alveolar hypoventilation
CPT/HCPCS: 99213

== ENCOUNTER 2023-10-24 14:29 | Outpatient (REF) | payer MEDICARE, BC, SELFPAY ==
--- NOTE | ~2023-10-24 | XR_ITS ---
EXAMINATION: XR CHEST CLINICAL INFORMATION: Screening COMPARISON: None available. TECHNIQUE: 2 views of the chest were obtained. FINDINGS: Heart size within normal limits. Aortic calcifications are seen. Retrocardiac increased markings. No vascular congestion, consolidations or effusions. Degenerative changes are present. XR/XR chest 2V IMPRESSION: Retrocardiac increased markings, question atelectasis/pneumonia. Short-term radiographic follow-up recommended.
== END 2023-10-24 14:30 | disposition home or self-care (01) ==
LOC: HO.XRAY 14:29
PROVIDERS: PCP Internal Medicine; Visit Provider Internal Medicine
DX: R05.9 Cough, unspecified (principal); R06.2 Wheezing
CPT/HCPCS: 71046

== ENCOUNTER 2024-02-14 07:29 | Outpatient (REF) | payer MEDICARE, BC, SELFPAY ==
[2024-02-14 07:47] LABS: MANUAL DIFF FLAG NO
[2024-02-14 08:38] LABS: Basophils Absolute Auto 0.1 X10*3/uL (0.0-0.2); Basophils Percent Auto 0.5 % (0-2); Eosinophils Absolute Auto 0.2 X10*3/uL (0.0-0.4); Eosinophils Percent Auto 1.9 % (0-4); Hematocrit 46.8 % (42.0-52.0); Hemoglobin 15.4 g/dl (14.0-18.0); Imm Gran Abs Auto 0.08 X10*3/uL (0.00-0.03); Imm Gran Pct Auto 0.8 % (0.0-0.4); Lymphocytes Absolute Auto 2.5 X10*3/uL (1.2-4.9); Lymphocytes Percent Auto 26.2 % (20-40); Mean Corpuscular HGB Conc 32.9 g/dl (31.0-36.0); Mean Corpuscular Hemoglobin 28.6 pg (27.0-33.0); Mean Corpuscular Volume 86.8 fL (80.0-98.0); Mean Platelet Volume 9.9 fL (9.4-12.4); Monocytes Absolute Auto 1.1 X10*3/uL (0.1-1.2); Monocytes Percent Auto 11.1 % (2-11); Neutrophils Absolute Auto 5.6 x10*3/uL (2.0-8.3); Neutrophils Percent Auto 59.5 % (45-73); Platelet Count 317 X10*3/uL (160-400); Red Blood Count 5.39 X10*6/uL (4.60-5.80); Red Cell Distribution Width 13.8 % (11.0-16.0); White Blood Count 9.5 X10*3/uL (4.8-10.8)
[2024-02-14 08:51] LABS: Estimated Average Glucose 111 mg/dL; Hemoglobin A1c % 5.5 % (<6.0)
[2024-02-14 09:13] LABS: Alanine Aminotransferase 23 U/L (0-40); Albumin Level 4.1 g/dL (3.5-5.0); Alkaline Phosphatase 87 U/L (39-117); Anion Gap 14 (12-20); Aspartate Amino Transferase 18 U/L (5-37); Bilirubin Total 0.7 mg/dL (0.0-1.0); Blood Urea Nitrogen 13 mg/dL (9-16); Calcium 9.5 mg/dL (8.4-10.2); Carbon Dioxide 26 mmol/L (22-29); Chloride 104 mmol/L (96-108); Cholesterol 170 mg/dL (<200); Estimated Glomerular Filt Rate > 60; Glucose Random 100 mg/dL (60-115); HDL Cholesterol 48 mg/dL (>40); LDL Cholesterol Calculated 95 mg/dL (<100); Potassium 4.5 mmol/L (3.3-5.1); Sodium 139 mmol/L (135-145); Triglycerides 136 mg/dL (<150)
[2024-02-14 09:35] LABS: Prostate Specific Antigen 7.97 ng/mL (<0.05-4.0)
[2024-02-14 12:34] LABS: Creatinine Urine 101.08 mg/dL; Microalbum/Creatinine Ratio Ur 6.9 ug/mg cr (<30)
== END 2024-02-14 07:30 | disposition home or self-care (01) ==
LOC: HO.LAB 07:29
PROVIDERS: PCP Internal Medicine; Visit Provider Internal Medicine
DX: Z12.5 Encounter for screening for malignant neoplasm of prostate (principal); I10 Essential (primary) hypertension; E78.00 Pure hypercholesterolemia, unspecified; K21.9 Gastro-esophageal reflux disease without esophagitis; R73.03 Prediabetes; N40.0 Benign prostatic hyperplasia without lower urinary tract symptoms
CPT/HCPCS: 36415; 80053; 80061; 82043; 82570; 83036; 84153; 85025

== ENCOUNTER 2024-03-05 09:52 | Outpatient (AMB) | payer MEDICARE, BC, SELFPAY ==
[2024-03-05 09:58] VITALS: BP 130/60; PULSE 77; O2SAT 96; BMI 31.4
--- NOTE | 2024-03-05 09:58 | A.OFFVIS_ITS ---
Intake Vital Signs 03/05/24 09:58 Height 5 ft 5 in Weight 189 lb BMI 31.4 BP 130/60 Blood Pressure Location Lt brachial Position Sitting Pulse 77 Pulse Source Pulse Oximeter Pulse Oximetry (%) 96 Oxygen Delivery Method Room Air Intake Visit Reasons: Obstructive sleep apnea Intake Note: pt is here for follow up and states, he has stopped for over month for a deviated septum. All is okay. 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 He has been using fullface mask with pressure of 10 cm, and humidity at level 4, and has been doing well. Since about a month ago he had nasal septum surgery, and he was just not to use the CPAP. Even without the CPAP he has been sleeping well. Now if it cleared by his ENT surgeon he will restart using the CPAP . His compliance before February 03 was excellent. He had no issues with the CPAP mask or machine. [facility] Medical History History of COVID-19 Irritable bowel syndrome (IBS) Arthritis Elevated cholesterol HTN (hypertension) GERD (gastroesophageal reflux disease) Nocturnal hypoxemia OLI (obstructive sleep apnea) Obesity (BMI 30-39.9) Surgical History Hx of foot surgery Hx of appendectomy H/O colonoscopy Social History Household Members: Spouse Alcohol intake: current Alcohol intake frequency: a few times a week Patient Tobacco Use Status: Former Tobacco user Review of Systems Const All systems reviewed & are unremarkable except as noted in HPI and below Eyes Reports no additional complaints ENT Reports nasal congestion (Mild off and on.) Card Denies chest pain, Denies irregular heart rhythm and Denies leg edema Resp Reports no additional complaints GI Reports heartburn (Controlled with omeprazole) Reports no additional complaints Musc Reports back pain (Off and on) Skin/Breast Reports system reviewed and no additional complaints, except as documented Neuro Reports no additional complaints Psych Reports anxiety Physical Exam Vital Signs: Last Vital Signs Pulse 77 03/05/24 09:58 BP 130/60 03/05/24 09:58 Pulse Ox 96 03/05/24 09:58 Oxygen Delivery Method Room Air 03/05/24 09:58 BMI result Body Mass Index 31.4 Const General: healthy appearing, comfortable, no acute distress, alert and awake Orientation/consciousness: patient oriented x3 HEENT Other: Has an ulcerated area, on the bridge of the nose, due to a recent fall. Head: Yes normal to inspection General nose exam: No nasal polyps present, No nasal discharge present and Other nasal findings present (Status post surgery for DNS ) Face and sinus: Yes sinuses nontender Mouth: oropharynx normal Throat: Yes posterior oropharynx normal Eyes General: appearance normal, both eyes and all related structures Neck Neck: Yes normal visual inspection, Yes no lymphadenopathy, Yes trachea midline and Yes no JVD Thyroid: Thyroid normal Chest Chest palpation & inspection: normal inspection of the chest, normal palpation of entire chest wall and no tenderness Resp Effort & Inspection: normal respiratory effort Auscultation: clear to auscultation bilaterally and no wheezes Percussion: percussion normal Cardio Palpation: normal PMI Rate: regular rate Rhythm: regular rhythm Heart sounds: no gallops and no murmurs Peripheral pulses: Peripheral pulses 2+ throughout GI Palpation (GI): Soft to palpation, nontender, No hepatosplenomegaly present, no masses and Other GI palpation findings present (ABDOMEN MODERATELY OBESE AND SOMEWHAT PROTUBERANT) Auscultation: normal bowel sounds Back/Spine/Pelvis Thoracic/Lumbar Spine: thoracic and lumbar spine normal to inspection Skin General skin exam: no rashes or lesions noted Neuro General: patient oriented x3 and no focal motor deficits Cranial nerves: Yes CN's II-XII intact bilaterally Extrem General: Yes normal to inspection, Yes no clubbing, cyanosis or edema and Yes no calf tenderness Psych Appearance: grossly normal and well kempt Speech and movement: Normal speech and movement present Results Reviewed Results Reviewed: Compliance report from to 11/18/2012 24 reviewed. He had used 100% of the time and average use it per night 8 hours 20 minutes. No air leak was reported residual AHI was 5.4 Assessment & Plan Assessment & Plan (1) Obesity (BMI 30-39.9): Comment: Patient is moderately obese, during the past month he has lost 12 lb of weight, seems to be at baseline. Code(s): E66.9 - Obesity, unspecified Plan: Talked to him about his weight, at present he is only slightly overweight. He will cut down the calories intake ,, and keep on walking at least 2 - 3 miles daily . (2) OLI (obstructive sleep apnea): Comment: Very compliant,, and benefiting from the use of CPAP. Except for minor issues he has no major problem. He took a break for the last month after nasal surgery, Now he is intends to restart using the CPAP once he gets clearance from ENT surgeon. Code(s): G47.33 - Obstructive sleep apnea (adult) (pediatric) Plan: Encouraged to restart using CPAP regularly. Coding Level of Care Code Est Pt Level 3 (35866) Diagnoses Obesity (BMI 30-39.9) E66.9 OLI (obstructive sleep apnea) G47.33
== END 2024-03-05 10:21 | disposition home or self-care (01) ==
PROVIDERS: PCP Internal Medicine; Visit Provider Internal Medicine
DX: E66.9 Obesity, unspecified (principal); G47.33 Obstructive sleep apnea (adult) (pediatric)
CPT/HCPCS: 99213

== ENCOUNTER → 2024-03-05 09:52 | Outpatient (BNVA) | payer MEDICARE, BC, SELFPAY | PROVIDERS: PCP Internal Medicine; Visit Provider Internal Medicine | DX: G47.33 Obstructive sleep apnea (adult) (pediatric) (principal); E66.9 Obesity, unspecified; Z68.31 Body mass index [BMI] 31.0-31.9, adult | CPT/HCPCS: 99212 ==

== ENCOUNTER 2024-05-08 09:18 | Outpatient (REF) | payer MEDICARE, BC, SELFPAY ==
[2024-05-08 10:11] LABS: Appearance Urine Clear; Color Urine Yellow; Glucose Urine UA Negative (Negative); Leukocyte Esterase Urine Trace (Negative); Nitrite Urine Negative (Negative); PH 6.5 (5.0-9.0); UMIC TRIGGER UA YES; Urine Blood Negative (Negative); Urine Ketones Negative (Negative); Urine Protein Negative (Neg-Trace)
[2024-05-08 10:17] LABS: Bacteria Urine None Seen (None Seen); Hyaline Casts Urine 0-2 /LPF (0-2); RBC Urine 0-2 /HPF (0-2); Squamous Epithelial Cell Urine 0-2 /HPF (0-2); WBC Urine 0-5 /HPF (0-5)
== END 2024-05-08 09:19 | disposition home or self-care (01) ==
LOC: HO.LAB 09:18
PROVIDERS: PCP Internal Medicine; Visit Provider Internal Medicine
DX: R30.9 Painful micturition, unspecified (principal)
CPT/HCPCS: 81001; 87086

== ENCOUNTER 2024-09-10 09:58 | Outpatient (AMB) | payer MEDICARE, BC, SELFPAY ==
[2024-09-10 10:01] VITALS: BP 140/62; PULSE 62; O2SAT 98; BMI 32.3
--- NOTE | 2024-09-10 10:01 | MHC.OFFVIS ---
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 He is using his CPAP very regularly almost 8 hours per night and sleeps good. Denies any issues with the CPAP mask or. The CPAP machine He is not able to lose much weight, even though he is walking about 3 miles every day. [facility] Medical History History of COVID-19 Irritable bowel syndrome (IBS) Arthritis Elevated cholesterol HTN (hypertension) GERD (gastroesophageal reflux disease) Nocturnal hypoxemia OLI (obstructive sleep apnea) Obesity (BMI 30-39.9) Surgical History Hx of foot surgery Hx of appendectomy H/O colonoscopy Social History Household Members: Spouse Alcohol intake: current Alcohol intake frequency: a few times a week Patient Tobacco Use Status: Former Tobacco user Review of Systems Const All systems reviewed & are unremarkable except as noted in HPI and below Eyes Reports no additional complaints ENT Reports nasal congestion (Mild off and on.) Card Denies chest pain, Denies irregular heart rhythm and Denies leg edema Resp Reports no additional complaints GI Reports heartburn (Controlled with omeprazole) Reports no additional complaints Musc Reports back pain (Off and on) Skin/Breast Reports system reviewed and no additional complaints, except as documented Neuro Reports no additional complaints Psych Reports anxiety Physical Exam Vital Signs: Last Vital Signs Pulse 62 09/10/24 10:01 BP 140/62 H 09/10/24 10:01 Pulse Ox 98 09/10/24 10:01 Oxygen Delivery Method Room Air 09/10/24 10:01 BMI result Body Mass Index 32.3 Const General: healthy appearing, comfortable, no acute distress, alert and awake Orientation/consciousness: patient oriented x3 HEENT Other: Has an ulcerated area, on the bridge of the nose, due to a recent fall. Head: Yes normal to inspection General nose exam: No nasal polyps present, No nasal discharge present and Other nasal findings present (Status post surgery for DNS ) Face and sinus: Yes sinuses nontender Mouth: oropharynx normal Throat: Yes posterior oropharynx normal Eyes General: appearance normal, both eyes and all related structures Neck Neck: Yes normal visual inspection, Yes no lymphadenopathy, Yes trachea midline and Yes no JVD Thyroid: Thyroid normal Chest Chest palpation & inspection: normal inspection of the chest, normal palpation of entire chest wall and no tenderness Resp Effort & Inspection: normal respiratory effort Auscultation: clear to auscultation bilaterally and no wheezes Percussion: percussion normal Cardio Palpation: normal PMI Rate: regular rate Rhythm: regular rhythm Heart sounds: no gallops and no murmurs Peripheral pulses: Peripheral pulses 2+ throughout GI Palpation (GI): Soft to palpation, nontender, No hepatosplenomegaly present, no masses and Other GI palpation findings present (ABDOMEN MODERATELY OBESE AND SOMEWHAT PROTUBERANT) Auscultation: normal bowel sounds Back/Spine/Pelvis Thoracic/Lumbar Spine: thoracic and lumbar spine normal to inspection Skin General skin exam: no rashes or lesions noted Neuro General: patient oriented x3 and no focal motor deficits Cranial nerves: Yes CN's II-XII intact bilaterally Extrem General: Yes normal to inspection, Yes no clubbing, cyanosis or edema and Yes no calf tenderness Psych Appearance: grossly normal and well kempt Speech and movement: Normal speech and movement present Results Reviewed Results Reviewed: COMPLIANCE REPORT FOR THE LAST 30 NIGHTS IS REVIEWED. HE USES 30/30 NIGHTS,. 100% OF THE NIGHTS AVERAGE USE IT PER NIGHT 8 HOURS 40 MINUTES. HE IS ON CPAP OF 10 CM USING FULLFACE MASK. THERE IS NO AIR LEAK * RESIDUAL AHI IS 8.2 WHICH IS STILL HIGH. THIS MAY BE DUE SUBOPTIMAL PRESSURE. Assessment & Plan Assessment & Plan (1) Obesity (BMI 30-39.9): Comment: Patient is moderately obese, during his last visit he had lost some weight but now it is at a stands still He claims that he is walking 5000 steps every day, and still not losing weight. Code(s): E66.9 - Obesity, unspecified Category: Medical Plan: Discussed about his diet, to reduce carbohydrates and total calories, as much as he can. (2) OLI (obstructive sleep apnea): Comment: Very compliant,, and benefiting from the use of CPAP. Except for minor issues he has no major problem. He is using CPAP every night more than 8 hours. Denies any daytime sleepiness. Compliance is excellent but he has residual AHI of 8.2, and his the pressure setting may be suboptimal, Code(s): G47.33 - Obstructive sleep apnea (adult) (pediatric) Category: Medical Plan: I will request the DME technical team to adjust his pressure to 12 cm . He is instructed to lose some weight. Will re-evaluate after 4 months Coding Level of Care Code Est Pt Level 3 (01423) Diagnoses Obesity (BMI 30-39.9) E66.9 OLI (obstructive sleep apnea) G47.33
== END 2024-09-10 10:16 | disposition home or self-care (01) ==
PROVIDERS: PCP Internal Medicine; Visit Provider Internal Medicine
DX: E66.9 Obesity, unspecified (principal); G47.33 Obstructive sleep apnea (adult) (pediatric)
CPT/HCPCS: 99213

== ENCOUNTER → 2024-09-10 09:58 | Outpatient (BNVA) | payer MEDICARE, BC, SELFPAY | PROVIDERS: PCP Internal Medicine; Visit Provider Internal Medicine | DX: G47.33 Obstructive sleep apnea (adult) (pediatric) (principal); E66.9 Obesity, unspecified; Z68.32 Body mass index [BMI] 32.0-32.9, adult | CPT/HCPCS: 99212 ==

== ENCOUNTER 2024-11-22 08:37 | Outpatient (REF) | payer MEDICARE, BC, SELFPAY ==
[2024-11-22 08:46] LABS: MANUAL DIFF FLAG NO
--- OUTSIDE RECORDS SUMMARY | 2024-11-22 08:48 | XMS_ITS | Patient Health Record ---
Author Organization [facility] Address [address] [place] [address] Care Team Providers Care Academic Coach Name Role Phone Luis E Pina MD Primary Care Provider Bradley Wiley Jr Unavailable REASON FOR REFERRAL No Information MEDICATIONS Medication SIG (Take, Route, Frequency, Duration) Notes Start Date End Date Status Dicyclomine HCl 20 MG 1 tablet Orally 2- 4 times a day 03/24/2021 Active MiraLax (colon prep) 8.3 ounce ((238) grams mixed with Gatorade or Crystal Light orally begin at 5:00 p.m. the day before the procedure for 1 day 03/24/2021 Active Zolpidem Tartrate 10 MG Orally PRN Active Omeprazole 20mg 1 capsule Orally Onc e a day Active Ibuprofen 800 MG Orally PRN Act arjun amLODIPine Besylate 10 MG 1 tablet Orall y Once a day Active Simvastatin 20 MG 1 tablet in the even ing Orally Once a day Active Lisinopril 10 MG 1 tablet Orally Once a day Active IMMUNIZATIONS Vaccine Route Administration Date Status Comme nts Flu vaccine no Preserv 3 and > Unknown 08/19/2014 Admin istered Influenza Unknown 09/09/2020 Administered SOCIAL HISTORY Sex Assigned At : Social History Observation Description Sex Assigned At Unknown PROBLEMS Problem Type ICD Code Onset Dates Problem Status W/U Status Risk SNOMED Code Notes Problem Colon cancer screening (Z12.11) Active confirmed 921828147 Problem Family history of colon cancer (Z80.0) Active confirmed 011910078 Problem Irritable bowel syndrome, unspecified type (K58.9) Active confirmed 20668296 PLAN OF TREATMENT Future Test Test Name Order Date COLONOSCOPY 04/12/2012 COLONOSCOPY 08/19/2015 COLONOSCOPY 03/24/2021 Insurance Providers Payer Name Payer Address Payer Phone Subscriber Number Group Number Insured Name Patient Relationship to Insured Coverage Start Date Coverage End Date MEDICARE OF [place] [address] [place] [id number] ARNOLDO MEDEL Self - patient is the insured [facility] [address] [place], [place] [id number] ARNOLDO MEDEL Self - patient is the insured MEDICAL (GENERAL) HISTORY Medical History History ICD Code Colonoscopy 01/28/2000 Colonoscopy 05/19/2006 Hypertension Appendectomy Denies [place],DM,CVA,Lung disease,renal dise ase hyperlipidemia acid reflux Arthritis Surgical History Surgery Date(Month/Year) Appendectomy
--- OUTSIDE RECORDS SUMMARY | 2024-11-22 08:48 | XMS_ITS | Continuity of Care Document ---
Author Organization [facility] Address [address] [place] [address]- Care Team Providers Care Core Fitter Name Role Phone Luis E Pina MD Primary Care Physician [phone] [id number] Date(s): 10/04/24 - 11/03/24 [facility] [address] [place] [address] Attending Physician: Neha Yang Admitting Physician: Neha Yang Referring Physician: Neha Yang Encounter Type: Triage Allergies, Adverse Reactions, Alerts No Known Allergies Immunizations Given and Recorded Vaccine Date Status Refusal Reason SARS-CoV-2 (COVID-19) mRNA-1273 vaccine 02/19/21 G iven SARS-CoV-2 (COVID-19) mRNA-1273 vaccine 01/22/21 G iven Medications acetaminophen 325 mg oral tablet 650 mg, By Mouth, Every 6 hours, Refills 0, Maintenance, 04/30/17 7:54:11 AM EDT Start Date: 04/30/17 Status: Ordered Repeat number: 1 amLODIPine 10 mg oral tablet TAKE 1 TABLET ONCE A DAY Start Date: 04/12/17 Status: Ordered Repeat number: 1 Ibuprofen 800 mg, By Mouth, 2 times a day, Refills 0, Maintenance, 07/21/22 2:13:00 PM EDT, Partial fill upon patient request if the prescription is for a schedule II opioid drug. Start Date: 07/21/22 Status: Ordered Repeat number: 1 lisinopril 10 mg oral tablet TAKE 1 TABLET BY MOUTH EVERY DAY Start Date: 04/12/17 Status: Ordered Repeat number: 1 omeprazole 20 mg oral enteric coated capsule TAKE ONE CAPSULE ONCE A DAY Start Date: 04/12/17 Status: Ordered Repeat number: 1 simvastatin 20 mg oral tablet TAKE 1 TABLET ONCE A DAY Start Date: 04/12/17 Status: Ordered Repeat number: 1 tamsulosin 0.4 mg oral capsule 0.4 mg, 1, capsule, By Mouth, Daily at bedtime, Maintenance, 10/14/22 12:44:00 PM EST Start Date: 10/14/22 Status: Ordered Repeat number: 1 tiZANidine 2 mg oral tablet 2 mg, 1, tablet, By Mouth, Daily at bedtime, Maintenance, 10/04/24 7:49:00 AM EST, Partial fill uponpatient request if the prescription is for a schedule II opioid drug. Start Date: 10/04/24 Status: Ordered Repeat number: 1 Problem List Condition Confirmation Course Effective Dates Status Health St atus Informant Lumbar facet arthropathy Confirmed Active Myofascial pain syndrome Confirmed Active Obese class I Confirmed Active Sacroiliac joint dysfunction of left side Confirmed Active Patient Care team information Care Team Personnel Name: Fatoumata Jasmine RN Position: [facility] RN Member Role: Primary Care Nurse Name: Pete Babcock RN Position: [facility] RN Member Role: Primary Care Nurse Name: Luis E Pina MD Position: [facility] Outreach Member Role: PCP Address: [address] [place] [address] [place] [address]- Telecom: Name: Keisha Frederick RN Position: [facility] RN Member Role: Primary Care Nurse Name: Jyoti Luciano RN Position: [facility] RN Member Role: Primary Care Nurse Care Team Related Persons Name: TYRONE MEDEL Insurance Providers Guarantor name: ARNOLDO GIANFRANCO Health Plan Information #: 1 Payer: MEDICARE PART B OUTPT Member Number: NA Policy Number: NA Group Number: NA Health Plan Information #: 2 Payer: BLUE MEDICARE SUPPL Member Number: NA Policy Number: NA Group Number: NA
[2024-11-22 09:02] LABS: Basophils Absolute Auto 0.1 X10*3/uL (0.0-0.2); Basophils Percent Auto 0.8 % (0-2); Eosinophils Absolute Auto 0.3 X10*3/uL (0.0-0.4); Eosinophils Percent Auto 4.3 % (0-4); Hematocrit 44.5 % (42.0-52.0); Hemoglobin 14.6 g/dl (14.0-18.0); Imm Gran Abs Auto 0.04 X10*3/uL (0.00-0.03); Imm Gran Pct Auto 0.5 % (0.0-0.4); Lymphocytes Absolute Auto 2.3 X10*3/uL (1.2-4.9); Lymphocytes Percent Auto 28.6 % (20-40); Mean Corpuscular HGB Conc 32.8 g/dl (31.0-36.0); Mean Corpuscular Hemoglobin 27.4 pg (27.0-33.0); Mean Corpuscular Volume 83.5 fL (80.0-98.0); Mean Platelet Volume 9.8 fL (9.4-12.4); Monocytes Absolute Auto 0.9 X10*3/uL (0.1-1.2); Monocytes Percent Auto 11.2 % (2-11); Neutrophils Absolute Auto 4.4 x10*3/uL (2.0-8.3); Neutrophils Percent Auto 54.6 % (45-73); Platelet Count 318 X10*3/uL (160-400); Red Blood Count 5.33 X10*6/uL (4.60-5.80); Red Cell Distribution Width 14.8 % (11.0-16.0)
[2024-11-22 09:16] LABS: Estimated Average Glucose 117 mg/dL; Hemoglobin A1C 147.9293 umol/L; Hemoglobin A1c % 5.7 % (<6.0); Total Hemoglobin (HGBA1C) 3841.5312 umol/L
[2024-11-22 09:27] LABS: Alanine Aminotransferase 22 U/L (0-40); Alkaline Phosphatase 105 U/L (39-117); Anion Gap 12 (12-20); Aspartate Amino Transferase 27 U/L (5-37); Bilirubin Total 0.7 mg/dL (0.0-1.0); Blood Urea Nitrogen 20 mg/dL (9-16); Carbon Dioxide 23 mmol/L (22-29); Chloride 106 mmol/L (96-108); Cholesterol 170 mg/dL (<200); Estimated Glomerular Filt Rate > 60; Glucose Random 112 mg/dL (60-115); Potassium 4.4 mmol/L (3.3-5.1); Sodium 137 mmol/L (135-145); Total Protein 7.1 g/dL (6.5-8.0)
== END 2024-11-22 08:38 | disposition home or self-care (01) ==
LOC: HO.LAB 08:37
PROVIDERS: PCP Internal Medicine; Visit Provider Internal Medicine
DX: I10 Essential (primary) hypertension (principal); M19.90 Unspecified osteoarthritis, unspecified site; R73.03 Prediabetes
CPT/HCPCS: 36415; 80053; 82465; 83036; 85025

== ENCOUNTER 2025-01-14 09:59 | Outpatient (AMB) | payer MEDICARE, BC, SELFPAY ==
--- NOTE | 2025-01-14 10:02 | MHC.OFFVIS ---
Vital Signs 01/14/25 10:03 Height 5 ft 5 in Weight 196 lb 3.382 oz BMI 32.6 BP 120/54 L Blood Pressure Location Lt brachial Position Sitting Pulse 65 Pulse Source Pulse Oximeter Pulse Oximetry (%) 97 Oxygen Delivery Method Room Air Intake Visit Reasons: Obstructive sleep apnea Intake Note: pt is here for follow up and states he is using his cpap Sausage Inspector Required: No Allergies No Known Allergies Allergy (Verified 01/14/25 10:26) Medication List - Last Reconciled 01/14/25 by Elpidio Gonzales MD amlodipine 10 mg PO DAILY dicyclomine 20 mg PO BID ibuprofen 800 mg PO BID PRN lisinopril 10 mg PO DAILY omeprazole 20 mg PO DAILY tizanidine 4 mg PO Q8H PRN Do you need a note to return to daycare/school/sports/work: No HPI HPI Obstructive sleep apnea: Details: This 74 years old very pleasant gentleman is a case of obstructive sleep apnea and being treated with CPAP. He is a regular user of CPAP, every night. He has large fullface mask and is complaining of discomfort over the nasal bridge, with some air leak, However he still continue to use every night. Feels good during the daytime, not sleepy until. [facility]LY [facility] Medical History History of COVID-19 Irritable bowel syndrome (IBS) Arthritis Elevated cholesterol HTN (hypertension) GERD (gastroesophageal reflux disease) Nocturnal hypoxemia OLI (obstructive sleep apnea) Obesity (BMI 30-39.9) Surgical History Hx of foot surgery Hx of appendectomy H/O colonoscopy Social History Household Members: Spouse Alcohol intake: current Alcohol intake frequency: a few times a week Patient Tobacco Use Status: Former Tobacco user Review of Systems Const All systems reviewed & are unremarkable except as noted in HPI and below Eyes Reports no additional complaints ENT Reports nasal congestion (Mild off and on.) Card Denies chest pain, Denies irregular heart rhythm and Denies leg edema Resp Reports no additional complaints GI Reports heartburn (Controlled with omeprazole) Reports no additional complaints Musc Reports back pain (Off and on) Skin/Breast Reports system reviewed and no additional complaints, except as documented Neuro Reports no additional complaints Psych Reports anxiety Physical Exam Vital Signs: Last Vital Signs Pulse 65 01/14/25 10:03 BP 120/54 L 01/14/25 10:03 Pulse Ox 97 01/14/25 10:03 Oxygen Delivery Method Room Air 01/14/25 10:03 BMI result Body Mass Index 32.6 Const General: healthy appearing, comfortable, no acute distress, alert and awake Orientation/consciousness: patient oriented x3 HEENT Other: Has an ulcerated area, on the bridge of the nose, due to a recent fall. Head: Yes normal to inspection General nose exam: No nasal polyps present, No nasal discharge present and Other nasal findings present (Status post surgery for DNS ) Face and sinus: Yes sinuses nontender Mouth: oropharynx normal Throat: Yes posterior oropharynx normal Eyes General: appearance normal, both eyes and all related structures Neck Neck: Yes normal visual inspection, Yes no lymphadenopathy, Yes trachea midline and Yes no JVD Thyroid: Thyroid normal Chest Chest palpation & inspection: normal inspection of the chest, normal palpation of entire chest wall and no tenderness Resp Effort & Inspection: normal respiratory effort Auscultation: clear to auscultation bilaterally and no wheezes Percussion: percussion normal Cardio Palpation: normal PMI Rate: regular rate Rhythm: regular rhythm Heart sounds: no gallops and no murmurs Peripheral pulses: Peripheral pulses 2+ throughout GI Palpation (GI): Soft to palpation, nontender, No hepatosplenomegaly present, no masses and Other GI palpation findings present (ABDOMEN MODERATELY OBESE AND SOMEWHAT PROTUBERANT) Auscultation: normal bowel sounds Back/Spine/Pelvis Thoracic/Lumbar Spine: thoracic and lumbar spine normal to inspection Skin General skin exam: no rashes or lesions noted Neuro General: patient oriented x3 and no focal motor deficits Cranial nerves: Yes CN's II-XII intact bilaterally Extrem General: Yes normal to inspection, Yes no clubbing, cyanosis or edema and Yes no calf tenderness Psych Appearance: grossly normal and well kempt Speech and movement: Normal speech and movement present Results Reviewed Results Reviewed: Compliance for the last 30 nights is reviewed and he has used 30/30 nights, 100%. Average use it per night 8 hours 52 minutes which is excellent, There is only minimal air leakage. Residual AHI 7.7, it has improved from before with the pressure adjustment to 12 cm . Assessment & Plan Assessment & Plan (1) OLI (obstructive sleep apnea): Comment: Very compliant,, and benefiting from the use of CPAP. Except for minor issues he has no major problem. Complains of discomfort over the nasal bridge at night, would like to try a fullface mask but with softer inner lining. He is using CPAP every night more than 8 hours. Denies any daytime sleepiness. Compliance is excellent but he has residual AHI of 8.2, and his the pressure setting may be suboptimal, Code(s): G47.33 - Obstructive sleep apnea (adult) (pediatric) Category: Medical Plan: Commended for good compliance. Advised to keep on using the CPAP every night, current pressure of 12 cm is appropriate even though he still has some residual AHI. Patient is given a sample F 40 mask from the office, to try, if it is more comfortable than we can prescribe that DME supplier. (2) Nocturnal hypoxemia: Comment: Nocturnal hypoxemia as a part of obstructive sleep apnea plus hypoventilation. Resolved with the use of CPAP. Code(s): G47.34 - Idiopathic sleep related nonobstructive alveolar hypoventilation Category: Medical Plan: Does not need to use O2 at night (3) Obesity (BMI 30-39.9): Comment: Patient is moderately obese, during his last visit he had lost some weight but now it is at a stands still He is still walking daily . Code(s): E66.9 - Obesity, unspecified Category: Medical Plan: Counselled Re Walking Daily and Diet . Coding Level of Care Code Est Pt Level 3 (44947) Diagnoses OLI (obstructive sleep apnea) G47.33 Nocturnal hypoxemia G47.34 Obesity (BMI 30-39.9) E66.9
[2025-01-14 10:03] VITALS: BP 120/54; PULSE 65; O2SAT 97; BMI 32.6
--- OUTSIDE RECORDS SUMMARY | 2025-01-14 10:47 | XMS_ITS | Patient Health Record ---
Author Organization [facility] Address [address] [place] [address] Care Team Providers Care Roofing Layer Name Role Phone Luis E Pina MD Primary Care Provider Bradley Wiley Jr Unavailable [phone] REASON FOR REFERRAL No Information MEDICATIONS Medication [...] Problem Colon cancer screening (Z12.11) Active confirmed 381959971 Problem Family history of colon cancer (Z80.0) Active confirmed 736758395 Problem Irritable bowel syndrome, unspecified type (K58.9) Active confirmed [id number] PLAN OF TREATMENT Future Test Test Name Order Date COLONOSCOPY 04/12/2012 COLONOSCOPY 08/19/2015 COLONOSCOPY 03/24/2021 Insurance Providers Payer Name Payer Address Payer Phone Subscriber Number Group Number Insured Name Patient Relationship to Insured Coverage Start Date Coverage End Date MEDICARE OF [place] [address] [place] [id number] ARNOLDO MEDEL Self - patient is the insured [facility] [address] [place], [place] [id number] ARNOLDO MEDEL Self - patient is the insured MEDICAL (GENERAL) HISTORY Medical History History ICD Code Colonoscopy 01/28/2000 Colonoscopy 05/19/2006 Hypertension Appendectomy Denies [place],DM,CVA,Lung disease,renal dise ase hyperlipidemia acid reflux Arthritis Surgical History Surgery Date(Month/Year) Appendectomy
== END 2025-01-14 10:31 | disposition home or self-care (01) ==
PROVIDERS: PCP Internal Medicine; Visit Provider Internal Medicine
DX: G47.33 Obstructive sleep apnea (adult) (pediatric) (principal); G47.34 Idiopathic sleep related nonobstructive alveolar hypoventilation; E66.9 Obesity, unspecified
CPT/HCPCS: 99213

== ENCOUNTER → 2025-01-14 09:59 | Outpatient (BNVA) | payer MEDICARE, BC, SELFPAY | PROVIDERS: PCP Internal Medicine; Visit Provider Internal Medicine | DX: G47.33 Obstructive sleep apnea (adult) (pediatric) (principal); G47.34 Idiopathic sleep related nonobstructive alveolar hypoventilation; E66.9 Obesity, unspecified; Z99.89 Dependence on other enabling machines and devices; Z68.32 Body mass index [BMI] 32.0-32.9, adult | CPT/HCPCS: 99212 ==

== ENCOUNTER 2025-04-16 11:07 | Outpatient (AMB) | payer MEDICARE, BC, SELFPAY ==
--- NOTE | 2025-04-08 15:33 | A.OFFPC_ITS ---
Vital Signs 04/08/25 15:33 Height 5 ft 5 in Intake Visit Reasons: Routine Donations Attendant Required: No Accompanied by: Self / Same As Patient Allergies No Known Allergies Allergy (Verified 01/14/25 10:26) Tobacco use date assessed: 04/09/25 Fall risk assessment: No Falls in past year Last assessed Fall Risk: 04/09/25 Dental Screening Dental Screen Date: 04/09/25 Did you have a dental visit in the last 12 months?: Yes Did you have a dental problem in the last 6 months where you did not have access to dental care?: No [facility] Medical History History of COVID-19 Irritable bowel syndrome (IBS) Arthritis Elevated cholesterol HTN (hypertension) GERD (gastroesophageal reflux disease) Nocturnal hypoxemia OLI (obstructive sleep apnea) Obesity (BMI 30-39.9) Surgical History Hx of foot surgery Hx of appendectomy H/O colonoscopy Social History Household Members: Spouse Alcohol intake: current Alcohol intake frequency: a few times a week Patient Tobacco Use Status: Former Tobacco user Questionnaire PHQ-9 Over the last 2 weeks, how often have you been bothered by any of the following problems? 1. Little interest or pleasure in doing things: not at all 2. Feeling down, depressed, or hopeless: not at all 3. Trouble falling or staying asleep, or sleeping too much: not at all 4. Feeling tired or having little energy: not at all 5. Poor appetite or overeating: not at all 6. Feeling bad about yourself - or that you are a failure or have let yourself or your family down: not at all 7. Trouble concentrating on things, such as reading the newspaper or watching television: not at all 8. Moving or speaking so slowly that other people could have noticed. Or the opposite - being so fidgety or restless that you have been moving around a lot more than usual: not at all 9. Thoughts that you would be better off or of hurting yourself in some way: not at all Total score: 0 Source: Developed by Drs. Toño Stovall, Monica Back, Jose Bradshaw and colleagues, with an educational rosibel from [employer]. Thrive Questionnaire Date Thrive assessed: 04/09/25 I am a: Patient Within the past 12 months, did the food you bought not last and you didn't have the money to get more?: Never true Within the past 12 months, did you worry whether your food would run out before you got money to buy more?: Never true Do you have trouble paying for medicines?: No Do you have trouble getting transportation to medical appointments?: No Do you have trouble paying your heating and electricity bill?: No Do you have trouble taking care of your child, family member or friend?: No Do you have trouble with day-to-day activities such as bathing, preparing meals, shopping, managing finances, etc.?: No Are you currently unemployed and looking for a job?: No Are you interested in more education?: No THRIVE Score: 0 AUDIT C Alcohol Use Questionnaire (AUDIT-C) 1. How often do you have a drink containing alcohol?: Never 3. How often do you have six or more drinks on one occasion?: Never Total Score: 0 SRIKANTH-7 AMB Questionnaire SRIKANTH-7 Date SRIKANTH - 7 assessed: 04/08/25 Feeling nervous, anxious, or on edge: 0 = Not at all Not being able to stop or control worryin = Not at all Worrying too much about different things: 0 = Not at all Trouble relaxin = Not at all Being so restless that it is hard to sit still: 0 = Not at all Becoming easily annoyed or irritable: 0 = Not at all Feeling afraid as if something awful might happen: 0 = Not at all Total SRIKANTH-7 score (0-4 normal; 5-9 mild; 10-14 moderate; 15-21 severe): 0 Source: Developed by Monica Marinelli, Jose Bradshaw and colleagues, with an educational rosibel from [employer]. Physical exam (Primary Care) Tobacco/Smoking Status: Tobacco use Status Patient Tobacco Use Status Former Tobacco user 09/02/21 10:04 Coding
[2025-04-16 10:02] VITALS: BP 138/70; PULSE 64; TEMP 36.9; O2SAT 96; BMI 32.6
--- NOTE | 2025-04-16 10:02 | A.OFFPC_ITS ---
Vital Signs 04/16/25 10:02 Height 5 ft 5 in Weight 196 lb BMI 32.6 BP 138/70 Blood Pressure Location Lt brachial Position Sitting Pulse 64 Pulse Source Pulse Oximeter Temp 98.4 F Temp Source Axillary Pulse Oximetry (%) 96 Oxygen Delivery Method Room Air Intake Visit Reasons: Routine Manager Mechanical Maintenance Required: No Accompanied by: Self / Same As Patient Allergies No Known Allergies Allergy (Verified 04/17/25 06:11) Medication List - Last Reconciled 04/17/25 by Israel Hughes MD amlodipine 10 mg PO DAILY dicyclomine 20 mg PO BID ibuprofen 800 mg PO BID PRN lisinopril 10 mg PO DAILY meclizine 12.5 mg PO DAILY PRN mirtazapine 7.5 mg PO BEDTIME omeprazole 20 mg PO DAILY tizanidine 2 mg PO .daily qhs Tobacco use date assessed: 04/16/25 Fall risk assessment: 1 Fall in past year Last assessed Fall Risk: 04/16/25 Dental Screening Dental Screen Date: 04/16/25 Did you have a dental visit in the last 12 months?: No Did you have a dental problem in the last 6 months where you did not have access to dental care?: No [facility] Medical History History of COVID-19 Irritable bowel syndrome (IBS) Arthritis Elevated cholesterol HTN (hypertension) GERD (gastroesophageal reflux disease) Nocturnal hypoxemia OLI (obstructive sleep apnea) Obesity (BMI 30-39.9) Surgical History Hx of foot surgery Hx of appendectomy H/O colonoscopy (~04/30/21) Family History Mother No problems noted. Father No problems noted. Social History Household Members: Spouse Housing: Condominium Alcohol intake: current Alcohol intake frequency: a few times a week Patient Tobacco Use Status: Former Tobacco user e-Cigarette/Vaping Use: Former Use service: No Current occupational status: retired Cognitive needs: No Hearing needs: No Vision needs: Yes (rx glasses) Questionnaire PHQ-9 Over the last 2 weeks, how often have you been bothered by any of the following problems? 1. Little interest or pleasure in doing things: not at all 2. Feeling down, depressed, or hopeless: not at all 3. Trouble falling or staying asleep, or sleeping too much: not at all 4. Feeling tired or having little energy: not at all 5. Poor appetite or overeating: not at all 6. Feeling bad about yourself - or that you are a failure or have let yourself or your family down: not at all 7. Trouble concentrating on things, such as reading the newspaper or watching television: not at all 8. Moving or speaking so slowly that other people could have noticed. Or the opposite - being so fidgety or restless that you have been moving around a lot more than usual: not at all 9. Thoughts that you would be better off or of hurting yourself in some way: not at all Total score: 0 Depression Screening Interpretation: Negative Depression Screening Done: Yes Source: Developed by Drs. Toño Stovall, Monica Back, Jose Bradshaw and colleagues, with an educational rosibel from [employer]. Thrive Questionnaire Date Thrive assessed: 04/16/25 I am a: Patient Within the past 12 months, did the food you bought not last and you didn't have the money to get more?: Never true Within the past 12 months, did you worry whether your food would run out before you got money to buy more?: Never true Do you have trouble paying for medicines?: No Do you have trouble getting transportation to medical appointments?: No Do you have trouble paying your heating and electricity bill?: No Do you have trouble taking care of your child, family member or friend?: No Do you have trouble with day-to-day activities such as bathing, preparing meals, shopping, managing finances, etc.?: No Are you currently unemployed and looking for a job?: No Are you interested in more education?: No Currently or been in a relationship where the following occur: No concerns reported THRIVE Score: 0 AUDIT C Alcohol Use Questionnaire (AUDIT-C) 1. How often do you have a drink containing alcohol?: Monthly or less 2. How many drinks containing alcohol do you have on a typical day when you are drinking?: 1 or 2 3. How often do you have six or more drinks on one occasion?: Less than monthly Total Score: 2 SRIKANTH-7 AMB Questionnaire SRIKANTH-7 Date SRIKANTH - 7 assessed: 04/16/25 Feeling nervous, anxious, or on edge: 0 = Not at all Not being able to stop or control worryin = Not at all Worrying too much about different things: 0 = Not at all Trouble relaxin = Not at all Being so restless that it is hard to sit still: 0 = Not at all Becoming easily annoyed or irritable: 0 = Not at all Feeling afraid as if something awful might happen: 0 = Not at all Total SRIKANTH-7 score (0-4 normal; 5-9 mild; 10-14 moderate; 15-21 severe): 0 Source: Developed by Drs. Toño Stovall, Monica Back, Jose Bradshaw and colleagues, with an educational rosibel from [employer]. Physical exam (Primary Care) Vital Signs: Last Vital Signs Temp 98.4 F 04/16/25 10:02 Pulse 64 04/16/25 10:02 BP 138/70 04/16/25 10:02 Pulse Ox 96 04/16/25 10:02 Oxygen Delivery Method Room Air 04/16/25 10:02 Care Plan Goal for BP management: BP is in range. BMI result Body Mass Index 32.6 BMI Assessment/Plan discussion: High Tobacco/Smoking Status: Tobacco use Status Tobacco use date assessed 04/16/25 04/16/25 10:05 Patient Tobacco Use Status Former Tobacco user 04/16/25 10:05 e-Cigarette/Vaping Use Former Use 04/16/25 10:05 PHQ-9: PHQ-9 Score PHQ-9: Total score 0 04/16/25 11:20 Depression Screening Interpretation: Negative Thrive Assessment: Date of Thrive Assessment Date Thrive assessed 04/16/25 04/16/25 10:05 Currently or been in a relationship where the following occur: No concerns reported Advance Care Planning discussion: Exists, not on file Date of discussion: 04/17/25 Who was present: Patient Forms completed: Health Care Proxy and [facility] Actual minutes spent: 5 Coding Level of Care Code Est Pt Level 4 (92786) Complex EM visit Add On G2211 Diagnoses HTN (hypertension) I10 Additional Codes Vital Signs *Quality* - Advance Care Planning discussion: Exists, not on file ([id number]) Assessment & Plan Assessment & Plan (1) HTN (hypertension): Code(s): I10 - Essential (primary) hypertension Category: Medical Plan: BP is in range. Will call with results of blood work. Plan History of Present Illness The patient is a 74-year-old male presenting with medication refill needs for hypertension and GERD, alongside long-standing chronic back pain. He reports that his back pain persists despite previous treatments, including muscle relaxants and cortisone injections, with the pain exacerbated by walking. The pain improves slightly on bending forward. Imaging from several years ago showed degenerative changes but the patient reports no recent updates or changes. His history includes BPH, managed by a urologist, and knee replacement surgery contributing to his physical activity limitations. The patient requests refills for his medications managing hypertension and GERD. Routine fasting blood work is planned following up on previous lab results from October. Social History - Remains physically active, though limited by back pain. - Attempts to engage in regular walking. Review of Systems - Musculoskeletal: Reports chronic back pain with stiffness, exacerbated by walking, slightly relieved by bending forward. - Genitourinary: Reports history of benign prostatic hyperplasia. - Gastrointestinal: Reports gastroesophageal reflux disease. - General: Denies pain in abdomen or other areas. Physical Exam General: Cooperative and healthy appearing Nutritional Appearance: Well nourished Orientation/consciousness: Patient oriented x3 Limitations: No limitations Head: Normal to inspection General: Appearance normal, both eyes and all related structures Neck: Normal visual inspection Chest: Normal palpation of entire chest wall Respiratory: No pains here ormal respiratory effort Neurology: Patient oriented x3 Results - Labs: Previous blood work completed in October. - Tests: MRI and CT done a few years ago indicating degenerative changes in the back. Plan 1. Chronic Back Pain - Continue current medication; consider increasing dosage. - No new imaging; monitor clinically. 2. Benign Prostatic Hyperplasia - No changes; ongoing specialist care followed. 3. Hypertension - Refill amlodipine; monitor blood pressure. 4. Gastroesophageal Reflux Disease - Refill medication; encourage lifestyle changes. 5. Status Post Knee Replacement - Maintain activity level; manage as needed. Discussion Notes During the visit, we discussed the management of chronic back pain, including the potential adjustment of muscle relaxant dosage to improve symptom control. Previous imaging results were deemed non-progressive, so no new imaging was arranged. We reviewed the need for medication refills for hypertension and GERD and arranged for prescriptions to be sent. We discussed follow-up fasting blood work related to previous results done in October, and I advised the patient to continue with his current management for BPH under his urologist's care. The patient was informed about the prescription and necessity of maintaining adherence to antihypertensive therapy. Patient Instructions - Continue taking muscle relaxants as prescribed and consider increasing to 4 mg if back pain persists. - Refill and continue taking amlodipine for blood pressure. - Refill and take GERD medication as prescribed. - Maintain activity level to the extent that back pain allows. - Schedule and complete fasting blood work as discussed. - Follow up in six months unless symptoms require earlier attention. - Contact me with any new or worsening symptoms. Orders: Orders Basic Metabolic Panel 04/16/25 I10 - Essential (primary) hypertension Complete Blood Count no Diff 04/16/25 I10 - Essential (primary) hypertension Liver Panel 04/16/25 I10 - Essential (primary) hypertension Thyroid Stimulating Hormone 04/16/25 I10 - Essential (primary) hypertension UA and rflx microscopic 04/16/25 I10 - Essential (primary) hypertension Lipid Panel 04/16/25 I10 - Essential (primary) hypertension Medications: New meclizine 12.5 mg PO DAILY PRN 14 tabs 0RF dizziness omeprazole 20 mg PO DAILY 90 caps 1RF amlodipine 10 mg PO DAILY 90 tabs 1RF
--- OUTSIDE RECORDS SUMMARY | 2025-04-16 12:27 | XMS_ITS | Clinical Summary ---
Author Organization [facility] Address [address] [place] [address] Care Team Providers Care Manager Medicare Marketing Name Role Phone Unavailable Primary Care Provider Unavailabl e Social History Tobacco Use Types Packs/Day Years Used Date Smoking Tobacco: Never Assessed Sex and Gender Information Value Date Recorded Sex Assigned at Not on file Legal Sex Male 1:43 PM EDT Gender Identity Not on file Sexual Orientation Not on file Plan of Treatment Health Maintenance Due Date Last Done Comments Hepatitis C Screening 1950 DTaP/Tdap/Td (1 - Tdap) 1967 Pneumococcal 50+ years (1 of 1 - PCV) 1999 Zoster (Shingrix) (1 of 2) 1999 RSV (1 - 1-dose 75+ series) 2024 COVID-19 Vaccine (2023-2 5 season) 2024 Influenza (#1) 2024 Abdominal Aorta Imaging Discontinued HPV Vaccine Aged Out No longer eligi ble based on patient's age to complete this topic Hep A Aged Out No longer eligi ble based on patient's age to complete this topic Hep B Aged Out No longer eligi ble based on patient's age to complete this topic Hib Aged Out No longer eligi ble based on patient's age to complete this topic Meningococcal ACWY Aged Out No longer eligible based on patient's age to complete this topic Zoster (Zostavax) Discontinued Insurance MEDICARE PART B [facility] FFS FEDERAL
--- OUTSIDE RECORDS SUMMARY | 2025-04-16 12:28 | XMS_ITS | Patient Health Record ---
Author Organization [facility] Address [address] [place] [address] Care Team Providers Care Engraver [employer] Name Role Phone Luis E Pina MD Primary Care Provider Bradley Wiley Jr Unavailable Reason For Referral No Information Medications Medication SIG (Take, Route, Frequency, Duration) Notes [...] 1 tablet Orally Once a day Active Immunizations Vaccine Route Administration Date Status Comme nts Flu vaccine no Preserv 3 and > Unknown 08/19/2014 Admin istered Influenza Unknown 09/09/2020 Administered Problems Problem Type SNOMED Code ICD Code Onset Dates Problem Status W/U Status Risk Notes Problem 713566054 Colon cancer screening (Z12.11) Active confirmed Problem 050790916 Family history of colon cancer (Z80.0) Active confirmed Problem 02825213 Irritable bowel syndrome, unspecified type (K58.9) Active confirmed Plan Of Treatment Future Test Test Name Order Date COLONOSCOPY 04/12/2012 COLONOSCOPY 08/19/2015 COLONOSCOPY 03/24/2021 Insurance Providers Payer Name Payer Address Payer Phone Subscriber Number Group Number Insured Name Patient Relationship to Insured Coverage Start Date Coverage End Date MEDICARE OF [place] [address] RASHID DURAN [id number] ARNOLDO MEDEL Self - patient is the insured [facility] [address] [place], [place] [id number] [phone] [id number] ARNOLDO MEDEL Self - patient is the insured Medical (General) History Medical History History ICD Code Colonoscopy 01/28/2000 Colonoscopy 05/19/2006 Hypertension Appendectomy Denies IA,DM,CVA,Lung disease,renal dise ase hyperlipidemia acid reflux Arthritis Surgical History Surgery Date(Month/Year) Appendectomy
== END 2025-04-16 11:47 | disposition home or self-care (01) ==
LOC: HO.HMCHD 11:08
PROVIDERS: PCP Internal Medicine; Visit Provider Internal Medicine
DX: I10 Essential (primary) hypertension (principal); Z00.00 Encounter for general adult medical examination without abnormal findings

== ENCOUNTER → 2025-04-16 11:07 | Outpatient (BNVA) | payer MEDICARE, BC, SELFPAY | PROVIDERS: PCP Internal Medicine; Visit Provider Internal Medicine | DX: I10 Essential (primary) hypertension (principal) | CPT/HCPCS: 99212 ==

== ENCOUNTER 2025-05-26 09:45 | Outpatient (AMB) | payer MEDICARE, BC, SELFPAY ==
[2025-05-26 09:31] VITALS: BP 130/70; PULSE 54; TEMP 36.6; O2SAT 96; BMI 31.9
--- NOTE | 2025-05-26 09:31 | A.OFFPC_ITS ---
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 Accompanied by: Self / Same As Patient Allergies No Known Allergies Allergy (Verified 05/26/25 09:31) Tobacco use date assessed: 05/26/25 Fall risk assessment: No Falls in past year Last assessed Fall Risk: 05/26/25 Dental Screening Dental Screen Date: 05/26/25 Did you have a dental visit in the last 12 months?: No Did you have a dental problem in the last 6 months where you did not have access to dental care?: No [facility] Medical History (Updated 05/26/25 @ 10:29 by Israel Hughes MD) Colitis History of COVID-19 Irritable bowel syndrome (IBS) Arthritis Elevated cholesterol HTN (hypertension) GERD (gastroesophageal reflux disease) Nocturnal hypoxemia OLI (obstructive sleep apnea) Obesity (BMI 30-39.9) Surgical History Hx of foot surgery Hx of appendectomy H/O colonoscopy (~04/30/21) Family History Mother No problems noted. Father No problems noted. Social History Household Members: [facility] Alcohol intake: current Alcohol intake frequency: a few times a week Patient Tobacco Use Status: Former Tobacco user e-Cigarette/Vaping Use: Former Use service: No Current occupational status: retired Cognitive needs: No Hearing needs: No Vision needs: Yes (rx glasses) Questionnaire PHQ-9 Over the last 2 weeks, how often have you been bothered by any of the following problems? 1. Little interest or pleasure in doing things: not at all 2. Feeling down, depressed, or hopeless: not at all 3. Trouble falling or staying asleep, or sleeping too much: not at all 4. Feeling tired or having little energy: not at all 5. Poor appetite or overeating: not at all 6. Feeling bad about yourself - or that you are a failure or have let yourself or your family down: not at all 7. Trouble concentrating on things, such as reading the newspaper or watching television: not at all 8. Moving or speaking so slowly that other people could have noticed. Or the opposite - being so fidgety or restless that you have been moving around a lot more than usual: not at all 9. Thoughts that you would be better off or of hurting yourself in some way: not at all Total score: 0 Source: Developed by Drs. Toño Stovall, Monica Back, Jose Bradshaw and colleagues, with an educational rosibel from [employer]. Thrive Questionnaire Date Thrive assessed: 05/26/25 I am a: Patient Within the past 12 months, did the food you bought not last and you didn't have the money to get more?: Never true Within the past 12 months, did you worry whether your food would run out before you got money to buy more?: Never true Do you have trouble paying for medicines?: No Do you have trouble getting transportation to medical appointments?: No Do you have trouble paying your heating and electricity bill?: No Do you have trouble taking care of your child, family member or friend?: No Do you have trouble with day-to-day activities such as bathing, preparing meals, shopping, managing finances, etc.?: No Are you currently unemployed and looking for a job?: No Are you interested in more education?: No THRIVE Score: 0 AUDIT C Alcohol Use Questionnaire (AUDIT-C) 1. How often do you have a drink containing alcohol?: Monthly or less 2. How many drinks containing alcohol do you have on a typical day when you are drinking?: 1 or 2 3. How often do you have six or more drinks on one occasion?: Less than monthly Total Score: 2 SRIKANTH-7 AMB Questionnaire SRIKANTH-7 Date SRIKANTH - 7 assessed: 05/26/25 Feeling nervous, anxious, or on edge: 0 = Not at all Not being able to stop or control worryin = Not at all Worrying too much about different things: 0 = Not at all Trouble relaxin = Not at all Being so restless that it is hard to sit still: 0 = Not at all Becoming easily annoyed or irritable: 0 = Not at all Feeling afraid as if something awful might happen: 0 = Not at all Total SRIKANTH-7 score (0-4 normal; 5-9 mild; 10-14 moderate; 15-21 severe): 0 Source: Developed by Drs. Toño Stovall, Monica Back, Jose Bradshaw and colleagues, with an educational rosibel from [employer]. Physical exam (Primary Care) Vital Signs: Last Vital Signs Temp 98 F 05/26/25 09:31 Pulse 54 05/26/25 09:31 BP 130/70 05/26/25 09:31 Pulse Ox 96 05/26/25 09:31 Oxygen Delivery Method Room Air 05/26/25 09:31 BMI result Body Mass Index 31.9 Tobacco/Smoking Status: Tobacco use Status Tobacco use date assessed 05/26/25 05/26/25 09:32 Patient Tobacco Use Status Former Tobacco user 05/26/25 09:32 e-Cigarette/Vaping Use Former Use 05/26/25 09:32 PHQ-9: PHQ-9 Score PHQ-9: Total score 0 05/26/25 09:32 Thrive Assessment: Date of Thrive Assessment Date Thrive assessed 05/26/25 05/26/25 09:32 Coding Level of Care Code Est Pt Level 4 (64240) Complex EM visit Add On G2211 Diagnoses Colitis K52.9 Assessment & Plan Assessment & Plan (1) Colitis: Code(s): K52.9 - Noninfective gastroenteritis and colitis, unspecified Category: Medical Plan: History of Present Illness - The patient is a 75-year-old male presenting with abdominal pain. - The abdominal pain began two days ago and is persistent, affecting sleep and accompanied by cold sweats. - The patient denies vomiting but has not eaten in a couple of days due to the pain. - Constipation is present, with no bowel movements or gas passage despite medication use. - A similar episode occurred a month ago, resolved with antibiotics after blood work in [place]. - The patient believes corn consumption may have triggered the current episode. - He is awaiting a gastroenterology appointment with Dr. Bell in July. Social History - Family: Recently visited his son in [place]. Review of Systems - Gastrointestinal: Reports persistent abdominal pain for two days, constipation, and inability to eat. - General: Reports cold sweats, denies fever. Physical Exam General: Cooperative and healthy appearing Nutritional Appearance: Well nourished Orientation/consciousness: Patient oriented x3 Limitations: No limitations Head: Normal to inspection General: Appearance normal, both eyes and all related structures Neck: Normal visual inspection Chest: Normal palpation of entire chest wall Respiratory: Patient reports cold sweats but no fever or chills. No vomiting, but unable to pass bowel or gas. Respiratory status otherwise not explicitly mentioned. ormal respiratory effort Neurology: Patient oriented x3. No dizziness reported. Abdomen: Sluggish bs. rebound tenderness on the RLQ Results - Labs: Blood work performed during previous episode in [place]. Plan 1. Abdominal Pain - Referred to ER for urgent imaging and BW - Avoid dietary triggers such as corn. 2. Constipation - Continue Mililac and Probiide for management. Discussion Notes I discussed with the patient the recurrence of abdominal pain and the importance of following up with a turning machine set up operator. We talked about avoiding dietary triggers like corn and continuing current medications for constipation. The patient is advised to monitor symptoms and seek immediate care if they worsen. Patient Instructions - Follow up with Dr. Bell in July. - Avoid eating corn and other potential dietary triggers. - Continue taking Mililac and Probiide as directed. - Seek immediate medical attention if symptoms worsen.
--- OUTSIDE RECORDS SUMMARY | 2025-05-26 10:11 | XMS_ITS | Clinical Summary ---
Author Organization [facility] Address [address] [place] [address] Care Team Providers Care Senior Cytogenetic Technologist Name Role Phone Unavailable Primary Care Provider [...] COVID-19 Vaccine (2023-2 5 season) 2024 Influenza (Season Ended) 2025 HPV Vaccine Aged Out No longer eligi [...] Zoster (Zostavax) Discontinued Insurance MEDICARE PART B [facility] FFS FEDERAL
== END 2025-05-26 10:22 | disposition home or self-care (01) ==
LOC: HO.HMCHD 09:46
PROVIDERS: PCP Internal Medicine; Visit Provider Internal Medicine
DX: K52.9 Noninfective gastroenteritis and colitis, unspecified (principal)

== ENCOUNTER → 2025-05-26 09:45 | Outpatient (BNVA) | payer MEDICARE, BC, SELFPAY | PROVIDERS: PCP Internal Medicine; Visit Provider Internal Medicine | DX: K52.9 Noninfective gastroenteritis and colitis, unspecified (principal); Z87.891 Personal history of nicotine dependence | CPT/HCPCS: 99212 ==

== ENCOUNTER 2025-05-26 10:26 | Emergency (ER) | payer MEDICARE, BC, SELFPAY ==
--- NOTE | ~2025-05-26 | XR_ITS ---
EXAMINATION: XR CHEST CLINICAL INFORMATION: cough COMPARISON: 10/24/2023 TECHNIQUE: 2 views of the chest were obtained. FINDINGS: Streaky density is present in the retrocardiac left lower lobe. Lungs are clear otherwise. Aortic knob calcification is again noted. Heart size is within normal limits. There is no pleural effusion. XR/XR chest 2V IMPRESSION: Streaky opacity in the left lower lobe could represent pneumonia or atelectasis. Electronically signed by: Terrell Galvan MD 05/26/2025 04:56 PM EDT
--- NOTE | ~2025-05-26 | CT_ITS ---
EXAMINATION: CT ABDOMEN PELVIS WITH IV CONTRAST HISTORY: RLQ tenderness, no flatus/BM COMPARISON: Comparison is made with the prior examination dated 04/20/2022. TECHNIQUE: CT scan of the abdomen and pelvis was performed following administration of 85 mL Omnipaque 350 using standard departmental protocol. Coronal and sagittal reformatted images were generated and reviewed. The patient received oral contrast material. This CT exam was performed with one or more of the following dose reduction techniques: automated exposure control, adjustment of the mA and/or kV according to patient size, use of iterative reconstruction technique. DLP: 615 mGy-cm FINDINGS: LOWER CHEST: There is mild dependent atelectasis at both lung bases. There is no pleural effusion. CARDIOVASCULATURE: The heart is normal in size. There is no pericardial effusion. LIVER: The liver is normal in size and contour, but demonstrates mildly decreased attenuation, consistent with steatosis. No liver mass is identified. The hepatic and portal veins are patent. GALLBLADDER / BILE DUCTS: The gallbladder is unremarkable. There is no intra or extrahepatic biliary ductal dilatation. SPLEEN: The spleen is normal in size. No focal splenic lesion is identified. PANCREAS: The pancreas is unremarkable in appearance. ADRENAL GLANDS: Within normal limits. KIDNEYS/RETROPERITONEUM: There is a punctate nonobstructing calculus at the lower pole of the right kidney. There is mild to moderate right hydronephrosis and hydroureter to the level of a 3 mm proximal ureteral calculus at the level of the superior endplate of L4. There is moderate periureteral soft tissue stranding. There is a 1.4 cm probable cyst at the upper pole of the right kidney. Additional smaller hypodensities in both kidneys are too small to accurately characterize. LYMPH NODES: No abdominal or pelvic lymphadenopathy. VASCULATURE: The abdominal aorta demonstrates atherosclerotic calcification, but is normal in caliber. MESENTERY/PERITONEUM: No free fluid. No masses. There is no free intraperitoneal gas. STOMACH: The stomach is unremarkable. SMALL BOWEL: The small bowel is normal in caliber. COLON: There is a large amount of stool in the ascending and transverse colon. The remainder of the colon is collapsed. APPENDIX: The appendix is not seen, however no inflammatory changes are seen adjacent to the cecum. URINARY BLADDER/PELVIC ORGANS: The urinary bladder is unremarkable. The prostate is enlarged. BONES / SOFT TISSUES: No suspicious bony or soft tissue abnormalities. CT/CT abdomen pelvis w IV con IMPRESSION: 1. Mild to moderate right hydroureteronephrosis secondary to a 3 mm proximal ureteral calculus. 2. Large amount of stool in the ascending and transverse colon. 3. Enlargement of the prostate. Electronically signed by: Toño Cisneros MD 05/26/2025 03:27 PM EDT RP
[2025-05-26 11:33] VITALS: BP 120/78; PULSE 74; RESP 16; TEMP 36.9; O2SAT 96; BMI 32.5
--- NOTE | 2025-05-26 11:33 | ED_ITS ---
HPI - General Adult General Chief complaint: Abdominal Pain Stated complaint: abd pain Time Seen by Provider: 05/26/25 11:55 Source: patient, RN notes reviewed and old records reviewed Mode of arrival: ambulatory Limitations: no limitations History of Present Illness ED Provider: Livia HPI narrative: Patient is a 75-year-old male with history of BPH, appendectomy presenting to the emergency department with complaint of right lower quadrant abdominal pain for the past 2 days with associated nausea, vomiting and constipation. Reports last bowel movement was 2 days ago. Also states he has not been passing gas as far as he can recall. He has been using MiraLax for his constipation with little improvement. Recently treated for diverticulitis on 04/20 after being evaluated at a hospital in [place]. He was treated with Cipro and Flagyl. States his current pain is different from his recent diverticulitis pain. Some difficulty urinating but reports history of BPH. MD complaint: abdominal pain Onset (ago): day(s) Related Data Home Medications ?Medication ?Instructions ?Recorded ?Confirmed ibuprofen 800 mg tablet 800 mg PO BID PRN Pain 02/0804/17/25 lisinopril 10 mg tablet 10 mg PO DAILY 02/08/2103/28 dicyclomine 20 mg tablet 20 mg PO BID 03/05/24 Previous Rx's ?Medication ?Instructions ?Recorded mirtazapine 7.5 mg tablet 7.5 mg PO BEDTIME #90 tabs 0 04/01/25 tizanidine 2 mg tablet 2 mg PO .daily qhs #90 tabs 04/01/25 amlodipine 10 mg tablet 10 mg PO DAILY #90 tabs 03/28 12/21 meclizine 12.5 mg tablet 12.5 mg PO DAILY PRN dizzine ss #14 04/16/25 tabs omeprazole 20 mg capsule,delayed 20 mg PO DAILY #90 ca ps 04/16/25 release cefuroxime axetil 500 mg tablet 500 mg PO BID #14 tabs 05/26/25 morphine 15 mg immediate release 15 mg PO Q8H PRN dom re pain 05/26/25 tablet (scale score 7-10) #8 tabs ondansetron 4 mg disintegrating 4 mg PO Q8H PRN nausea and 05/26/25 tablet vomiting #10 tabs prednisone 20 mg tablet 20 mg PO DAILY #7 tabs 05/26 tamsulosin 0.4 mg capsule 0.4 mg PO DAILY #14 caps Allergies Allergy/AdvReac Type Severity Reaction Status Date / Time No Known Allergies Allergy Verified 05/26/25 11:35 Review of Systems 2 Review of Systems: As per hPI Yes all other systems are reviewed and are negative Constitutional: Constitutional: Reports as per HPI [facility] Past Medical History Medical History (Updated 05/26/25 @ 17:46 by Suzanne Bhakta NP) Colitis History of COVID-19 Irritable bowel syndrome (IBS) Arthritis Elevated cholesterol HTN (hypertension) GERD (gastroesophageal reflux disease) Nocturnal hypoxemia OLI (obstructive sleep apnea) Obesity (BMI 30-39.9) Surgical History Hx of foot surgery Hx of appendectomy H/O colonoscopy (~04/30/21) Family History Family History Mother No problems noted. Father No problems noted. Social History Social History Household Members: [facility] Alcohol intake: current Alcohol intake frequency: a few times a week Patient Tobacco Use Status: Former Tobacco user Smoked in Last 30 Days: No e-Cigarette/Vaping Use: Former Use Use of substances other than those prescribed or required for medical reasons: No Advance Directives: No Advance Directives Information Provided: Yes service: No Current occupational status: retired Cognitive needs: No Hearing needs: No Vision needs: Yes (rx glasses) Physical Exam ED Vital Signs: Vital Signs - 24 hr 05/26/25 11:33 05/26/25 14:16 05/26/25 15:29 Temperature 98.4 F 98 F 98.8 F Pulse Rate 74 72 71 Respiratory Rate 16 18 18 Blood Pressure 120/78 135/63 148/70 H Pulse Oximetry 96 94 93 Oxygen Delivery Method Room Air Room Air Room Air 05/26/25 16:04 Temperature 98.5 F Pulse Rate 77 Respiratory Rate 16 Blood Pressure 158/77 H Pulse Oximetry 94 Oxygen Delivery Method Room Air BMI result Body Mass Index 32.5 Vital signs have been reviewed and appear to be correct. Blood pressure normal. Heart rate normal. Respiratory rate normal. Temperature normal. Oxygen saturation normal. Const General: cooperative, healthy appearing and no acute distress Orientation/consciousness: oriented to person, oriented to place, oriented to time and patient oriented x3 Limitations: no limitations HENMT Head: Yes normocephalic and Yes atraumatic Ears: external ears normal General nose exam: Normal external nose present Face and sinus: Yes face symmetric Mouth: oropharynx normal and moist mucous membranes Throat: Yes uvula midline Eyes Pupils: Equal, round and reactive pupils present Neck Neck: Yes normal visual inspection and Yes supple Resp Effort & Inspection: normal respiratory effort and able to speak in complete sentences Auscultation: clear to auscultation bilaterally Cardio Rate: regular rate Rhythm: regular rhythm Heart sounds: S1 normal heart sound present and S2 normal heart sound present GI Palpation (GI): Soft to palpation, Tenderness to palpation present (GI) in the RLQ, no guarding and No Rebound tenderness present Auscultation: normoactive bowel sounds General: Yes CVA tenderness on the right Back/Spine/Pelvis Back: CVA tenderness Skin General skin exam: elasticity normal and turgor normal Neuro General: oriented to person, oriented to place, oriented to time, patient oriented x3, moves all extremities, no focal motor deficits and CN's II-XI intact bilaterally Cranial nerves: Yes Equal, round and reactive pupils present Cognition (Neuro): normal cognition Extrem General: Yes full ROM, Yes no pedal edema and Yes no calf tenderness Psych Mental Status: mental status grossly normal Affect: normal affect Thought process: Normal thought process present Course Course Course Narrative: RME performed by Monet Pascual PA-C. Patient is a 75 year old assigned male at presenting to the emergency department with right lower abdominal pain. Patient states that 2 days ago he began having abdominal pain. Patient has a history of colitis and divertiuclitis. Detailed physical exam and review of systems are deferred to the trailer mechanic. Labs ordered. Patient placed back in the waiting room pending room availability and results. Medications Administered Discontinued Medications Generic Name Dose Route Start Last Admin Trade Name Freq PRN Reason Stop Dose Admin Diatrizoate Meglum/Diatrizoate Sod 30 ml 05/26/25 14:29 05/26/25 14:29 Diatrizoate Meglumine, Sodium 30 Ml Solution PO 05/26/25 14:30 30 ml ONCE ONE Administration Hydromorphone HCl 1 mg 05/26/25 13:19 05/26/25 13:26 Hydromorphone Hcl 1 Mg/Ml Syringe IVPUSH 05/26/25 13:20 1 mg ONCE ONE Administration Protocol Sodium Chloride 1,000 mls @ 999 mls/hr 05/26/25 12:00 05/26/25 13:20 Ns IV 05/26/25 13:00 Infused .Q1H1M ALEXIS Infusion Piperacillin Sod/Tazobactam 50 mls @ 100 mls/hr 05/26/25 12:30 05/26/25 14:06 Sod 3.375 gm/ Sodium Chloride IV 05/26/25 12:59 Infused ONCE ONE Infusion Iohexol 100 ml 05/26/25 14:28 05/26/25 14:29 Iohexol 350 Mg/Ml 100 Ml Infus..Btl IV 05/26/25 14:29 85 ml ONCE ONE Administration Morphine Sulfate 4 mg 05/26/25 11:57 05/26/25 12:12 Morphine Sulfate 4 Mg/Ml Cartridge IVPUSH 05/26/25 11:58 4 mg ONCE ONE Administration Protocol Ondansetron HCl 4 mg 05/26/25 11:56 05/26/25 12:12 Ondansetron Hcl 4 Mg/2 Ml Vial IVPUSH 05/26/25 11:57 4 mg ONCE ONE Administration Medical Decision Making Medical Decision Making MDM Narrative: Patient is a 75-year-old male with history of BPH, appendectomy presenting to the emergency department with complaint of right lower quadrant abdominal pain for the past 2 days with associated nausea, vomiting and constipation. On exam patient is awake, A+Ox3, VS WNL, afebrile, normal neurological exam without focal deficits, physical exam findings as above. Given reported symptoms and physical exam findings, initial differential includes but is not limited to bowel obstruction, abscess, perforation, UTI/pyelonephritis, renal colic, obstructing calculi. Labs notable for leukocytosis of 30 with mildly elevated lactic, mildly elevated BUN and creatinine. CT abdomen pelvis notable for 3 mm obstructing calculi to right proximal ureter with associated [id number] hydronephrosis, no evidence of bowel obstruction, abscess or perforation. My interpretation is in agreement with the radiologist's interpretation. Case discussed with Dr. Ruvalcaba who also reviewed CT and agrees no evidence of obstruction. Urinalysis is without evidence of infection, notable only for 1+ blood. Feel this could possibly be due to sediment settling to the bottom of specimen prior to sample being sent to the lab, will repeat UA. Case also discussed with Dr. Rayo who feels patient is stable for discharge home on p.o. antibiotics, does not require admission as his lactic improved with IV fluids. Patient has a follow up appointment with [facility] on Monday, 06/03. Will also discharge home with prednisone, Flomax, Zofran and morphine for severe pain. Strict return precautions discussed at bedside with the patient and . Patient and verbalized understanding of and agreement with plan. Differential Diagnosis Differential Diagnoses: The differential diagnosis associated with the presentation includes As per [facility] Admission/Observation Consideration of admission/observation: Escalation of care including admission/observation considered Patient would have been admitted to the hospital had their work up had any findings where hospital admission was appropriate and their clinical presentation warranted hospital admission. Consult Healthcare Provider Management of the patient was discussed with: [facility] (Dr. Ruvalcaba, Dr. Rayo) Lab Data [facility] Lab Attestation statement: I reviewed the patient's lab results. as per [facility] 05/26/25 12:04 05/26/25 12:47 Labs: Lab Results 05/26/25 05/26/25 05/26/25 Range/Units 12:04 12:47 13:07 WBC 30.1 H* (4.8-10.8) X10*3/uL RBC 6.03 H (4.60-5.80) X10*6/uL Hgb 16.4 (14.0-18.0) g/dl Hct 48.3 (42.0-52.0) % MCV 80.1 (80.0-98.0) fL MCH 27.2 (27.0-33.0) pg MCHC 34.0 (31.0-36.0) g/dl RDW 16.3 H (11.0-16.0) % Plt Count TNP MPV TNP Immature Gran % (Auto) 0.8 H (0.0-0.4) % Neut % (Auto) 86.3 H (45-73) % Lymph % (Auto) 4.8 L (20-40) % [place] % (Auto) 7.9 (2-11) % Eos % (Auto) 0.0 (0-4) % Baso % (Auto) 0.2 (0-2) % Lymph # (Auto) 1.5 (1.2-4.9) X10*3/uL [place] # (Auto) 2.4 H (0.1-1.2) X10*3/uL Eos # (Auto) 0.0 (0.0-0.4) X10*3/uL Baso # (Auto) 0.1 (0.0-0.2) X10*3/uL Abs Immat Gran (auto) 0.24 H (0.00-0.03) X10*3/uL Absolute Neuts (auto) 25.9 H (2.0-8.3) x10*3/uL Absolute Nucleated RBC 0.000 (0.0-0.012) X10*3/uL Nucleated RBC % (auto) 0.0 (0.0-0.2) /100WBC Smear Tech's Comments VERIFIED APTT (26.0-36.8) SEC Sodium 138 (135-145) mmol/L Potassium 4.2 (3.3-5.1) mmol/L Chloride 109 H (96-108) mmol/L Carbon Dioxide 18 L (22-29) mmol/L Anion Gap 15 (12-20) BUN 30 H (9-16) mg/dL Creatinine 1.26 (0.5-1.4) mg/dL Estim Creat Clear Calc 49.3 Estimated GFR 56 Random Glucose 101 (60-115) mg/dL Lactic Acid 2.3 H* (0.5-2.0) mmol/L Lactic Acid F/U @ 2Hr (0.5-2.0) mmol/L Calcium 8.6 (8.4-10.2) mg/dL Magnesium 2.1 (1.6-2.6) mg/dL Total Bilirubin 1.0 (0.0-1.0) mg/dL AST 22 (5-37) U/L ALT 17 (0-40) U/L Alkaline Phosphatase 88 (39-117) U/L Total Protein 7.1 (6.5-8.0) g/dL Albumin 4.2 (3.5-5.0) g/dL Urine Color Yellow Urine Appearance Clear Urine pH 6.5 (5.0-9.0) Ur Specific [place] 1.015 (1.005-1.025) Urine Protein Negative (Neg-Trace) mg/dL Urine Glucose (UA) Negative (Negative) mg/dL Urine Ketones Negative (Negative) mg/dL Urine Blood Small (1+) H (Negative) Urine Nitrite Negative (Negative) Ur Leukocyte Esterase Negative (Negative) Urine RBC 0-2 (0-2) /HPF Urine WBC 0-5 (0-5) /HPF Ur Squamous Epith Cells 0-2 (0-2) /HPF Urine Bacteria None Seen (None Seen) Hyaline Casts 0-2 (0-2) /LPF 05/26/25 05/26/25 Range/Units 14:13 15:23 WBC (4.8-10.8) X10*3/uL RBC (4.60-5.80) X10*6/uL Hgb (14.0-18.0) g/dl Hct (42.0-52.0) % MCV (80.0-98.0) fL MCH (27.0-33.0) pg MCHC (31.0-36.0) g/dl RDW (11.0-16.0) % Plt Count MPV Immature Gran % (Auto) (0.0-0.4) % Neut % (Auto) (45-73) % Lymph % (Auto) (20-40) % [place] % (Auto) (2-11) % Eos % (Auto) (0-4) % Baso % (Auto) (0-2) % Lymph # (Auto) (1.2-4.9) X10*3/uL [place] # (Auto) (0.1-1.2) X10*3/uL Eos # (Auto) (0.0-0.4) X10*3/uL Baso # (Auto) (0.0-0.2) X10*3/uL Abs Immat Gran (auto) (0.00-0.03) X10*3/uL Absolute Neuts (auto) (2.0-8.3) x10*3/uL Absolute Nucleated RBC (0.0-0.012) X10*3/uL Nucleated RBC % (auto) (0.0-0.2) /100WBC Smear Tech's Comments APTT 27.1 (26.0-36.8) SEC Sodium (135-145) mmol/L Potassium (3.3-5.1) mmol/L Chloride (96-108) mmol/L Carbon Dioxide (22-29) mmol/L Anion Gap (12-20) BUN (9-16) mg/dL Creatinine (0.5-1.4) mg/dL Estim Creat Clear Calc Estimated GFR Random Glucose (60-115) mg/dL Lactic Acid (0.5-2.0) mmol/L Lactic Acid F/U @ 2Hr 1.6 (0.5-2.0) mmol/L Calcium (8.4-10.2) mg/dL Magnesium (1.6-2.6) mg/dL Total Bilirubin (0.0-1.0) mg/dL AST (5-37) U/L ALT (0-40) U/L Alkaline Phosphatase (39-117) U/L Total Protein (6.5-8.0) g/dL Albumin (3.5-5.0) g/dL Urine Color Urine Appearance Urine pH (5.0-9.0) Ur Specific [place] (1.005-1.025) Urine Protein (Neg-Trace) mg/dL Urine Glucose (UA) (Negative) mg/dL Urine Ketones (Negative) mg/dL Urine Blood (Negative) Urine Nitrite (Negative) Ur Leukocyte Esterase (Negative) Urine RBC (0-2) /HPF Urine WBC (0-5) /HPF Ur Squamous Epith Cells (0-2) /HPF Urine Bacteria (None Seen) Hyaline Casts (0-2) /LPF Independent Interpretation I performed an independent interpretation of an: CT Scan Interpretation: CT abdomen pelvis notable for 3 mm obstructing calculi to right proximal ureter with associated [id number] hydronephrosis, no evidence of bowel obstruction, abscess or perforation. Radiology Impression Discussion of test interpretation with radiology: I have reviewed the radiologist's reading. Radiologist Impression: CT/CT abdomen pelvis w IV con IMPRESSION: 1. Mild to moderate right hydroureteronephrosis secondary to a 3 mm proximal ureteral calculus. 2. Large amount of stool in the ascending and transverse colon. 3. Enlargement of the prostate. Independent Historian Clinical information obtained from an independent historian. History obtained from or confirmed by: Spouse External Record Review External record reviewed: Inpatient record, Office record and Outpatient record Prescription Management I considered prescription management with: Pain Medication, Antibiotic and Other Discharge Plan Discharge Clinical Impression: Calculi, ureter Urinary tract infection Qualifiers: Urinary tract infection type: acute cystitis Hematuria presence: with hematuria Qualified Code(s): N30.01 - Acute cystitis with hematuria Patient Disposition: Home, Self-Care Instructions: Urinary Tract Infection in Men (DC), Hydronephrosis (ED), Ureteral Stones (ED) Additional Instructions: You were evaluated in the emergency department for abdominal pain. Your CT scan showed evidence of a stone in your right ureter. The stone is 3 mm which will likely pass on its own. Your are being provided with a urine strainer to use at home, instructions are included in your discharge paperwork. You are being prescribed prednisone to decrease inflammation, tamsulosin to allow the stone to pass more easily, and morphine as needed for severe pain. You can also take 600 mg of ibuprofen every 6 hours as needed for pain. Your being prescribed ondansetron which you can use every 8 hours as needed for nausea. You are being treated with an antibiotic for a urinary tract infection. Complete the full course as prescribed even if your symptoms improve. Follow-up with your urologist as previously scheduled on 06/03/2025. Return to the emergency department if you develop worsening pain, persistent vomiting, fever 100.4? or greater, inability to urinate, or any other new or concerning symptoms. Prescriptions: New cefuroxime axetil 500 mg tablet 500 mg PO BID Qty: 14 0RF prednisone 20 mg tablet 20 mg PO DAILY Qty: 7 0RF tamsulosin 0.4 mg capsule 0.4 mg PO DAILY Qty: 14 0RF morphine 15 mg tablet 15 mg PO Q8H PRN (Reason: severe pain (scale score 7-10)) Qty: 8 0RF Rx Instructions: Partial Fill upon patient request. ondansetron 4 mg tablet,disintegrating 4 mg PO Q8H PRN (Reason: nausea and vomiting) Qty: 10 0RF No Action mirtazapine 7.5 mg tablet 7.5 mg PO BEDTIME Qty: 90 1RF tizanidine 2 mg tablet 2 mg PO .daily qhs Qty: 90 1RF lisinopril 10 mg tablet 10 mg PO DAILY ibuprofen 800 mg tablet 800 mg PO BID PRN (Reason: Pain) omeprazole 20 mg capsule,delayed release(DR/EC) 20 mg PO DAILY Qty: 90 1RF amlodipine 10 mg tablet 10 mg PO DAILY Qty: 90 1RF meclizine 12.5 mg tablet 12.5 mg PO DAILY PRN (Reason: dizziness) Qty: 14 0RF dicyclomine 20 mg tablet 20 mg PO BID Print Language: Romanian
[2025-05-26 12:12] LABS: Basophils Absolute Auto 0.1 X10*3/uL (0.0-0.2); Basophils Percent Auto 0.2 % (0-2); Hematocrit 48.3 % (42.0-52.0); Hemoglobin 16.4 g/dl (14.0-18.0); Imm Gran Abs Auto 0.24 X10*3/uL (0.00-0.03); Imm Gran Pct Auto 0.8 % (0.0-0.4); Lymphocytes Absolute Auto 1.5 X10*3/uL (1.2-4.9); Lymphocytes Percent Auto 4.8 % (20-40); MANUAL DIFF FLAG SCAN; Mean Corpuscular Hemoglobin 27.2 pg (27.0-33.0); Mean Corpuscular Volume 80.1 fL (80.0-98.0); Monocytes Absolute Auto 2.4 X10*3/uL (0.1-1.2); Monocytes Percent Auto 7.9 % (2-11); Neutrophils Absolute Auto 25.9 x10*3/uL (2.0-8.3); Neutrophils Percent Auto 86.3 % (45-73); PLT CLUMP 1; Red Blood Count 6.03 X10*6/uL (4.60-5.80); Red Cell Distribution Width 16.3 % (11.0-16.0); SCAN SMEAR FLAG 1
[2025-05-26] MEDS: ondansetron HCL 4 MG/2 ML VIAL IVPUSH (12:12)
[2025-05-26] MEDS: Morphine Sulfate 4 MG/ML CARTRIDGE IVPUSH (12:12)
[2025-05-26] MEDS: 0.9 % Sodium Chloride 1,000 ML 999 ML IV (12:18)
[2025-05-26 12:30] LABS: White Blood Count 30.1 X10*3/uL (4.8-10.8)
[2025-05-26 12:31] LABS: SLIDE REVIEW VERIFIED
--- OUTSIDE RECORDS SUMMARY | 2025-05-26 12:52 | XMS_ITS | Patient Health Record ---
Author Organization [facility] Address [address] [place] [address] Care Team Providers Care Software Quality Automation Engineer Name Role Phone MANNY VASQUEZ Primary Care Provider Bradley Lopez Jr Unavailable Reason For Referral No Information [...] Problem Status W/U Status Risk Notes Problem [id number] Colon cancer screening (Z12.11) Active confirmed Problem [id number] Family history of colon cancer (Z80.0) Active confirmed Problem [id number] Irritable bowel syndrome, unspecified type (K58.9) Active confirmed Plan Of Treatment Future Test Test Name Order Date COLONOSCOPY 04/12/2012 COLONOSCOPY 08/19/2015 COLONOSCOPY 03/24/2021 Next Appt Details Provider Name:Bradley Maldonado Jeevan león Jr, 07/30/2025 10:00:00 AM, [address] [facility], [address], [place], [address], Insurance Providers Payer Name Payer Address Payer Phone Subscriber Number Group Number Insured Name Patient Relationship to Insured Coverage Start Date Coverage End Date MEDICARE OF [place] [address] [place] [address] [id number] ARNOLDO MEDEL Self - patient is the insured [facility] [address] [place], [place] [id number] [phone] [id number] ARNOLDO MEDEL Self - patient is the insured Medical (General) History Medical History History ICD Code Colonoscopy 01/28/2000 Colonoscopy 05/19/2006 Hypertension Appendectomy Denies CO,DM,CVA,Lung disease,renal dise ase hyperlipidemia acid reflux Arthritis Surgical History Surgery Date(Month/Year) Appendectomy
--- OUTSIDE RECORDS SUMMARY | 2025-05-26 12:52 | XMS_ITS | Clinical Summary ---
Author Organization [facility] Address [address] [place] [address] Care Team Providers Care Compounding Technician Name Role Phone Unavailable Primary Care Provider [...] Zoster (Zostavax) Discontinued Insurance MEDICARE PART B [facility] FFS FEDERAL
[2025-05-26 13:13] LABS: Alanine Aminotransferase 17 U/L (0-40); Albumin Level 4.2 g/dL (3.5-5.0); Alkaline Phosphatase 88 U/L (39-117); Anion Gap 15 (12-20); Aspartate Amino Transferase 22 U/L (5-37); Blood Urea Nitrogen 30 mg/dL (9-16); Calcium 8.6 mg/dL (8.4-10.2); Carbon Dioxide 18 mmol/L (22-29); Chloride 109 mmol/L (96-108); Creatinine Clr Calc Pharmacy 49.3; Estimated Glomerular Filt Rate 56; Glucose Random 101 mg/dL (60-115); Magnesium 2.1 mg/dL (1.6-2.6); Potassium 4.2 mmol/L (3.3-5.1); Sodium 138 mmol/L (135-145); Total Protein 7.1 g/dL (6.5-8.0)
[2025-05-26] MEDS: Piperacillin Sodium/Tazobactam 3.375 GM in 0.9 % Sodium Chloride 50 ML IV (13:15)
[2025-05-26 13:19] LABS: Lactic Acid 2.3 mmol/L (0.5-2.0)
[2025-05-26 13:21] LABS: Appearance Urine Clear; Color Urine Yellow; Glucose Urine UA Negative (Negative); Leukocyte Esterase Urine Negative (Negative); Nitrite Urine Negative (Negative); PH 6.5 (5.0-9.0); Specific Gravity - Urine 1.015 (1.005-1.025); UMIC TRIGGER UACC YES; Urine Blood Small (1+) (Negative); Urine Ketones Negative (Negative); Urine Protein Negative (Neg-Trace)
[2025-05-26] MEDS: HYDROmorphone HCl 1 MG/ML SYRINGE IVPUSH (13:26)
--- NOTE | 2025-05-26 13:29 | PC.NURSE ---
pt verbalizing pain increase in RLQ to right flank. previous medication administration not effectiveness. provider notified/aware. pt remedicated per provider order. effectiveness pending. pt otherwise waiting for CT to be completed at this time. family bedside for support. plan of care ongoing. call cross placed within reach.
[2025-05-26 13:32] LABS: Bacteria Urine None Seen (None Seen); Hyaline Casts Urine 0-2 /LPF (0-2); RBC Urine 0-2 /HPF (0-2); Squamous Epithelial Cell Urine 0-2 /HPF (0-2); WBC Urine 0-5 /HPF (0-5)
[2025-05-26 14:16] VITALS: BP 135/63; PULSE 72; RESP 18; TEMP 36.6; O2SAT 94
[2025-05-26] MEDS: Diatrizoate Meglumine, Sodium 30 ML SOLUTION PO (14:29)
[2025-05-26] MEDS: iohexoL 350 MG/ML 100 ML INFUS..BTL IV (14:29)
[2025-05-26 14:34] LABS: Partial Thromboplastin Time 27.1 SEC (26.0-36.8)
[2025-05-26 14:54] LABS: Reflex Lactate? Lactic Acid Added
[2025-05-26 15:29] VITALS: BP 148/70; PULSE 71; RESP 18; TEMP 37.1; O2SAT 93
[2025-05-26 15:45] LABS: ~Lactic Acid-LAB USE ONLY 1.6 mmol/L (0.5-2.0)
[2025-05-26 16:04] VITALS: BP 158/77; PULSE 77; RESP 16; TEMP 36.9; O2SAT 94
[2025-05-26 18:05] VITALS: BP 150/67; PULSE 76; RESP 16; TEMP 37.2; O2SAT 94
[2025-05-26 18:27] VITALS: BP 150/67; PULSE 76; RESP 16; TEMP 37.2; O2SAT 94
== END 2025-05-26 18:27 | disposition home or self-care (01) ==
PROVIDERS: Physician Assistant Medical; Registered Nurse Emergency; Emergency Provider Emergency Medicine; PCP Internal Medicine
DX: N30.01 Acute cystitis with hematuria (principal); N13.2 Hydronephrosis with renal and ureteral calculous obstruction; R10.31 Right lower quadrant pain; R11.2 Nausea with vomiting, unspecified; Z79.899 Other long term (current) drug therapy
CPT/HCPCS: 36415; 71046; 74177; 80053; 81001; 83605; 83735; 85025; 85730; 87040; 96361; 96365; 96375; 99284; 99285; J1171; J2270; J2405; J2543; Q9967

== ENCOUNTER → 2025-05-26 11:56 | Outpatient (BNV) | payer MEDICARE, BC, SELFPAY | PROVIDERS: Emergency Provider Emergency Medicine; PCP Internal Medicine; Visit Provider Radiology Diagnostic Radiology | DX: N13.2 Hydronephrosis with renal and ureteral calculous obstruction (principal); K56.41 Fecal impaction; N40.0 Benign prostatic hyperplasia without lower urinary tract symptoms; R91.8 Other nonspecific abnormal finding of lung field | CPT/HCPCS: 74177 ==

== ENCOUNTER 2025-07-21 14:14 | Outpatient (AMB) | payer MEDICARE, BC, SELFPAY ==
[2025-07-21 14:26] VITALS: BP 139/68; PULSE 63; RESP 18; O2SAT 96; BMI 31.3
--- NOTE | 2025-07-21 14:26 | MHC.OFFVIS ---
Vital Signs 07/21/25 14:26 Height 5 ft 6 in Weight 194 lb 0.108 oz BMI 31.3 BP 139/68 Blood Pressure Location Lt brachial Position Sitting Respiration 18 Pulse 63 Pulse Source Pulse Oximeter Pulse Oximetry (%) 96 Oxygen Delivery Method Room Air Intake Visit Reasons: melba Allergies No Known Allergies Allergy (Verified 07/21/25 14:51) Medication List - Last Reconciled 07/21/25 by Elpidio Gonzales MD amlodipine 10 mg PO DAILY cefuroxime axetil 500 mg PO BID dicyclomine 20 mg PO BID ibuprofen 800 mg PO BID PRN lisinopril 10 mg PO DAILY meclizine 12.5 mg PO DAILY PRN mirtazapine 7.5 mg PO BEDTIME morphine 15 mg PO Q8H PRN omeprazole 20 mg PO DAILY ondansetron 4 mg PO Q8H PRN prednisone 20 mg PO DAILY tamsulosin 0.4 mg PO DAILY tizanidine 2 mg PO .daily qhs tramadol 50 mg PO Q8H PRN 7 days Do you need a note to return to daycare/school/sports/work: No HPI HPI melba: Details: ARNOLDO,75 YEARS OLD GENTLEMAN, IS HERE FOR 6 MONTHS FOLLOW-UP FOR HIS CPAP. HE USES CPAP EVERY NIGHT AND SLEEPS WELL. HE DOES HAVE SOME AIR LEAK WHICH BOTHERS HIS EYES. HE WANTS TO TRY A DIFFERENT MASK, ANYWAY HE DOES USE THE CPAP UP TO 8 HOURS EVERY NIGHT AND SLEEPS WELL BUT THE AIR LEAK KEEPS ON WAKING HIM UP. [facility] Medical History Colitis History of COVID-19 Irritable bowel syndrome (IBS) Arthritis Elevated cholesterol HTN (hypertension) GERD (gastroesophageal reflux disease) Nocturnal hypoxemia MELBA (obstructive sleep apnea) Obesity (BMI 30-39.9) Surgical History Hx of foot surgery Hx of appendectomy H/O colonoscopy (~04/30/21) Family History Mother No problems noted. Father No problems noted. Social History [facility]hold Members: [facility] Alcohol intake: current Alcohol intake frequency: a few times a week Patient Tobacco Use Status: Former Tobacco user e-Cigarette/Vaping Use: Former Use service: No Current occupational status: retired Cognitive needs: No Hearing needs: No Vision needs: Yes (rx glasses) Review of Systems Const All systems reviewed & are unremarkable except as noted in HPI and below Eyes Reports no additional complaints ENT Reports nasal congestion (Mild off and on.) Card Denies chest pain, Denies irregular heart rhythm and Denies leg edema Resp Reports no additional complaints GI Reports heartburn (Controlled with omeprazole) Reports no additional complaints Musc Reports back pain (Off and on) Skin/Breast Reports system reviewed and no additional complaints, except as documented Neuro Reports no additional complaints Psych Reports anxiety Physical Exam Vital Signs: Last Vital Signs Pulse 63 07/21/25 14:26 Resp 18 07/21/25 14:26 BP 139/68 07/21/25 14:26 Pulse Ox 96 07/21/25 14:26 Oxygen Delivery Method Room Air 07/21/25 14:26 BMI result Body Mass Index 31.3 Const General: healthy appearing, comfortable, no acute distress, alert and awake Orientation/consciousness: patient oriented x3 HEENT Other: Has an ulcerated area, on the bridge of the nose, due to a recent fall. Head: Yes normal to inspection General nose exam: No nasal polyps present, No nasal discharge present and Other nasal findings present (Status post surgery for DNS ) Face and sinus: Yes sinuses nontender Mouth: oropharynx normal Throat: Yes posterior oropharynx normal Eyes General: appearance normal, both eyes and all related structures Neck Neck: Yes normal visual inspection, Yes no lymphadenopathy, Yes trachea midline and Yes no JVD Thyroid: Thyroid normal Chest Chest palpation & inspection: normal inspection of the chest, normal palpation of entire chest wall and no tenderness Resp Effort & Inspection: normal respiratory effort Auscultation: clear to auscultation bilaterally and no wheezes Percussion: percussion normal Cardio Palpation: normal PMI Rate: regular rate Rhythm: regular rhythm Heart sounds: no gallops and no murmurs Peripheral pulses: Peripheral pulses 2+ throughout GI Palpation (GI): Soft to palpation, nontender, No hepatosplenomegaly present, no masses and Other GI palpation findings present (ABDOMEN MODERATELY OBESE AND SOMEWHAT PROTUBERANT) Auscultation: normal bowel sounds Back/Spine/Pelvis Thoracic/Lumbar Spine: thoracic and lumbar spine normal to inspection Skin General skin exam: no rashes or lesions noted Neuro General: patient oriented x3 and no focal motor deficits Cranial nerves: Yes CN's II-XII intact bilaterally Extrem General: Yes normal to inspection, Yes no clubbing, cyanosis or edema and Yes no calf tenderness Psych Appearance: grossly normal and well kempt Speech and movement: Normal speech and movement present Results Reviewed Results Reviewed: COMPLIANCE REPORT FOR THE LAST 30 NIGHTS IS REVIEWED HE USE 30/30 NIGHTS,. 100% AVERAGE USAGE PER NIGHT 8 HOURS 29 MINUTES. .PRESSURE 12 CM THERE IS NO SIGNIFICANT AIR LEAK. RESIDUAL AHI 1.8 Assessment & Plan Assessment & Plan (1) Obesity (BMI 30-39.9): Comment: Patient is moderately obese . Has not been able to lose any more weight, as he is not able to walk or jog. Code(s): E66.9 - Obesity, unspecified Category: Medical Plan: Talked to him about the weight issue and advised to cut down the calories and lose about 10 lb of weight. (2) MELBA (obstructive sleep apnea): Comment: Very compliant,, and benefiting from the use of CPAP. Except for minor issues he has no major problem. Complains of discomfort over the nasal bridge at night, would like to try a fullface mask but with softer inner lining. He is using CPAP every night more than 8 hours. Denies any daytime sleepiness. Compliance is excellent and residual AHI is only 1.8 Code(s): G47.33 - Obstructive sleep apnea (adult) (pediatric) Category: Medical Plan: Commended for good compliance. Because the current mask is uncomfortable due to air leak. We will prescribe fullface mask Air Fit-30 of medium size. Coding Level of Care Code Est Pt Level 3 (38335) Diagnoses Obesity (BMI 30-39.9) E66.9 MELBA (obstructive sleep apnea) G47.33
--- OUTSIDE RECORDS SUMMARY | 2025-07-21 15:44 | XMS_ITS | Clinical Summary ---
Author Organization [facility] Address [address] [place] [address] Care Team Providers Care Informix Developer Name Role Phone Unavailable Primary Care Provider [...] Vaccine (2023-2 5 season) 2024 Influenza (#1) 2025 HPV Vaccine (No Doses Required) Completed Hep A Aged Out No longer eligi [...] Zoster (Zostavax) Discontinued Insurance MEDICARE PART B [facility] FFS FEDERAL
--- OUTSIDE RECORDS SUMMARY | 2025-07-21 15:44 | XMS_ITS | Patient Health Record ---
Author Organization [facility] Address [address] [place] [address] Care Team Providers Care Window Covering Sales Consultant Name Role Phone MANNY VASQUEZ Primary Care [...] Problem Status W/U Status Risk Notes Problem 101711982 Colon cancer screening (Z12.11) Active confirmed Problem 816933266 Family history of colon cancer (Z80.0) Active confirmed Problem 75321615 Irritable bowel syndrome, unspecified type (K58.9) Active confirmed Plan Of Treatment Future Test Test Name Order Date COLONOSCOPY 04/12/2012 COLONOSCOPY 08/19/2015 COLONOSCOPY 03/24/2021 Next Appt Details Provider Name:Bradley Maldonado Jeevan león Jr, 07/30/2025 10:00:00 AM, [address] [facility], [address], [place], [address], Insurance Providers Payer Name Payer Address Payer Phone Subscriber Number Group Number Insured Name Patient Relationship to Insured Coverage Start Date Coverage End Date MEDICARE OF [place] [address] [place] [address] [id number] ARNOLDO MEDEL Self - patient is the insured [facility] [address] [place], [place] [id number] ARNOLDO MEDEL Self - patient is the insured Medical (General) History Medical History History ICD Code Colonoscopy 01/28/2000 Colonoscopy 05/19/2006 Hypertension Appendectomy Denies [place],DM,CVA,Lung disease,renal dise ase hyperlipidemia acid reflux Arthritis Surgical History Surgery Date(Month/Year) Appendectomy
== END 2025-07-21 15:02 | disposition home or self-care (01) ==
PROVIDERS: PCP Internal Medicine; Visit Provider Internal Medicine
DX: E66.9 Obesity, unspecified (principal); G47.33 Obstructive sleep apnea (adult) (pediatric)
CPT/HCPCS: 99213

== ENCOUNTER → 2025-07-21 14:14 | Outpatient (BNVA) | payer MEDICARE, BC, SELFPAY | PROVIDERS: PCP Internal Medicine; Visit Provider Internal Medicine | DX: G47.33 Obstructive sleep apnea (adult) (pediatric) (principal); Z99.89 Dependence on other enabling machines and devices; E66.9 Obesity, unspecified; Z68.31 Body mass index [BMI] 31.0-31.9, adult | CPT/HCPCS: 99212 ==

== ENCOUNTER 2025-09-02 08:18 | Day surgery (SDC) | payer MEDICARE, BC, SELFPAY ==
--- OUTSIDE RECORDS SUMMARY | 2025-08-19 14:52 | XMS_ITS | Clinical Summary ---
Author Organization [facility] Address [address] [place] [address] Care Team Providers Care Fabric Finisher Name Role Phone Unavailable Primary Care Provider [...] series) 2024 COVID-19 Vaccine (2023-2 5 season) 2025 Influenza (#1) 2025 HPV Vaccine (No Doses [...] Zoster (Zostavax) Discontinued Insurance MEDICARE PART B [facility] FFS FEDERAL
--- OUTSIDE RECORDS SUMMARY | 2025-08-19 14:52 | XMS_ITS | Patient Health Record ---
Author Organization [facility] Address [address] [place] [address] Care Team Providers Care Bulk Plant Supervisor Name Role Phone MANNY VASQUEZ Primary Care Provider Bradley Lopez Jr Unavailable Allergies No Known Allergies Reason For Referral No Information Medications Medication SIG (Take, Route, Frequency, Duration) Notes Start Date End Date Status Dicyclomine HCl 20 MG 1 tablet Orally 2- 4 times a day for 30 days 07/30/2025 Active oxyCODONE HCl 5 MG TAKE 1 TABLET EVERY 8 HOURS NEEDED Oral for 5 Days Not-Taking amLODIPine Besylate 10 MG TAKE 1 TABLET BY MOUTH EVERY DAY Oral for 90 Days Active Dicyclomine HCl 20 MG 1 tablet Orally 2- 4 times a day 03/24/2021 Active MiraLax (colon prep) 8.3 ounce ((238) grams mixed with Gatorade or Crystal Light orally begin at 5:00 p.m. the day before the procedure for 1 day 03/24/2021 Active Ibuprofen 800 MG Orally PRN Act arjun Simvastatin 20 MG 1 tablet in the even ing Orally Once a day Active oxyCODONE HCl 5 MG TAKE 1 TABLET EVERY 8 HOURS NEEDED Oral for 5 Days Active Lisinopril 10 MG 1 tablet Orally Once a day Active Lisinopril 10 MG TAKE 1 TABLET BY GEORGIE TH EVERY DAY Oral for 90 Days Active Mirtazapine 7.5 MG TAKE 1 TABLET BY GEORGIE TH AT BEDTIME Oral for 90 Days Active tiZANidine HCl 2 MG Oral for 90 Days Active Zolpidem Tartrate 10 MG Orally PRN Active Omeprazole 20mg 1 capsule Orally Onc e a day Active Cefuroxime Axetil 500 MG TAKE 1 TABLET B Y MOUTH TWICE A DAY FOR 7 DAYS Oral for 7 Days Active amLODIPine Besylate 10 MG 1 tablet Orall y Once a day Active traMADol HCl 50 MG Oral for 7 Days Active Immunizations Vaccine Route Administration Date Status Comme nts Flu vaccine no Preserv 3 and > Unknown 08/19/2014 Admin istered Influenza Unknown 09/09/2020 Administered Influenza Unknown 09/10/2024 Administered Problems Problem Type SNOMED Code ICD Code Onset Dates Problem Status W/U Status Risk Notes Problem 723882732 Colon cancer screening (Z12.11) Active confirmed Problem 294657929 Family history of colon cancer (Z80.0) Active confirmed Problem 97686938 Irritable bowel syndrome, unspecified type (K58.9) Active confirmed Vital Signs Temperature 98.7 degrees Fahrenheit 07/30/2025 Blood pressure diastolic 01 mm Hg 07/30/2025 Height 65 in 07/30/2025 Blood pressure systolic 001 mm Hg 07/30/2025 Weight 193 lbs 07/30/2025 BMI 32.11 kg/m2 07/30/2025 Encounters Encounter Location Date Provider Diagnosis [facility] [address] [place] [address] 07/30/2025 Bradley Bell Jr Abn findings-GI tract R93.3 Assessments Encounter Date Diagnosis (ICD Code) Assessment Notes Treatment Notes Treatment Clinical Notes Section Notes 07/30/2025 Abn findings-GI tract (ICD-10 - R93.3) We discussed his symptoms today. We recommended further evaluation with colonoscopy because of the abnormality on the CT scan. We recommended he use dicyclomine for his crampy abdominal discomfort and a prescription was sent to his pharmacy. He is advised to stop ibuprofen 1 week before the procedure. He understands risks and benefits and agrees to proceed. Plan Of Treatment Future Test Test Name Order Date COLONOSCOPY 04/12/2012 COLONOSCOPY 08/19/2015 COLONOSCOPY 03/24/2021 COLONOSCOPY 07/30/2025 Next Appt Details Provider Name:Bradley león Jr, 09/02/2025 10:00:00 AM, [address] [facility] , [place], [place], [phone], Insurance Providers Payer Name Payer Address Payer Phone Subscriber Number Group Number Insured Name Patient Relationship to Insured Coverage Start Date Coverage End Date MEDICARE OF [place] [address] [place] [id number] ARNOLDO MEDEL Self - patient is the insured [facility] [address] [place], [place] [id number] ARNOLDO MEDEL Self - patient is the insured Medical (General) History Medical History History ICD Code Colonoscopy 01/28/2000 Colonoscopy 05/19/2006 Hypertension Appendectomy Denies [place],DM,CVA,Lung disease,renal dise ase hyperlipidemia acid reflux Arthritis colitis enlarged prostate kidney stones Surgical History Surgery Date(Month/Year) Appendectomy
[2025-08-29 13:18] VITALS: BMI 32.1
--- NOTE | 2025-08-29 13:27 | HO.ANESPROP2 ---
HPI - Anesthesia Eval Consult details Narrative: 75 yr old male for colonoscopy OLI: compliant with CPAP Kidney stones/UTI: treated at [facility] 04/2025 [facility] Active Problems Active Problems: All Active Problems Colitis (Acute) HTN (hypertension) (Acute) Nocturnal hypoxemia (Acute) OLI (obstructive sleep apnea) (Acute) Obesity (BMI 30-39.9) (Acute) Past Medical History Medical History (Updated 08/29/25 @ 13:10 by Desiree Dumont RN) Kidney stones Enlarged prostate Hyperlipidemia Renal disease Lung disease Colitis History of COVID-19 Irritable bowel syndrome (IBS) Arthritis Elevated cholesterol HTN (hypertension) GERD (gastroesophageal reflux disease) Nocturnal hypoxemia OLI (obstructive sleep apnea) Obesity (BMI 30-39.9) Family History Family History Mother No problems noted. Father No problems noted. Family history of problems with anesthesia: No Surgical History Surgical History Hx of foot surgery Hx of appendectomy H/O colonoscopy (~04/30/21) History of Problems with Anesthesia: No Social History Social History Household Members: Spouse Housing: Condominium Alcohol intake: current Alcohol intake frequency: a few times a week Patient Tobacco Use Status: Former Tobacco user e-Cigarette/Vaping Use: Former Use service: No Current occupational status: retired Cognitive needs: No Hearing needs: No Vision needs: Yes (rx glasses) Meds Allergies Allergy/AdvReac Type Severity Reaction Status Date / Time No Known Allergies Allergy Verified 07/21/25 14:51 Home Medications ?Medication ?Instructions ?Recorded ?Confirmed ?Last Taken ?Type ibuprofen 800 mg tablet 800 mg PO BID PRN Pain 02/08/21 08/29/25 Unknown History lisinopril 10 mg tablet 10 mg PO DAILY 02/08/21 08/29/25 Unknown History dicyclomine 20 mg tablet 20 mg PO BID PRN Abdominal 03/05/24 08/29/25 Unknown History Discomfort amlodipine 10 mg tablet 10 mg PO DAILY 08/29/25 08/29/25 Unknown History oxycodone 5 mg tablet 5 mg PO Q8H PRN Pain 08/29/25 08/29/25 Unknown History simvastatin 20 mg tablet 20 mg PO QPM 08/29/25 08/29/25 Unknown History zolpidem 10 mg tablet 10 mg PO BEDTIME 08/29/25 08/29/25 Unknown History Exam Height,Weight and Vital Signs: Height 5 ft 5 in Weight 87.543 kg Assessment and Plan Final Anesthetic Review Family History of Problems with Anesthesia: No History of Problems with Anesthesia: No
[2025-09-02 08:26] VITALS: BP 161/76; PULSE 87; RESP 16; TEMP 36.4; O2SAT 96; BMI 31.6
[2025-09-02] MEDS: Lactated Ringers 1,000 ML 100 ML IVCONT (08:46)
--- NOTE | 2025-09-02 09:49 | MHC.SHP ---
Pre-Procedural Eval Section A - 24 Hr Update-Section A only Date of Service: 09/02/25 Section B - Complete if H&P > 30 days Chief Complaint: Abnormal findings on diagnostic imaging Details of Present Illness: see H&P no changes Relevant Social History: None Present Medications: see Short Stay Collaborative assessment Medical History: No relevant PMH History of Previous Operations: No relevant previous surgery Allergies: Allergies Allergy/AdvReac Type Severity Reaction Status Date / Time No Known Allergies Allergy Verified 07/21/25 14:51 Review of Systems Sugical H&P ROS: Negative: Constitution, Cardiovascular, Respiratory, Neurological, Psychiatric, Hem-Onc, Allergic/Immunologic, Gastrointestinal, Genitourinary, Musculoskeletal, Integumentary, Endocrine and Eyes/Ears/Nose/Throat Exam Surgical H&P Exam: Normal: HEENT, Normal: Heart, Normal: Lungs, Normal: Extremities, Normal: Abdomen, Normal: Skin and Normal: Neurological Plan Diagnosis/Plan: Unchanged I have reviewed the history and physical and performed a pertinent physical examination on my patient. No changes have occurred unless specified. Time Spent With Patient Time: Total time managing care of this patient today ____ minutes.
[2025-09-02 10:37] VITALS: BP 119/50; PULSE 73; RESP 12; TEMP 36.7; O2SAT 93
[2025-09-02 10:50] VITALS: BP 130/62; PULSE 74; RESP 16; TEMP 36.7; O2SAT 97
--- NOTE | 2025-09-02 13:32 | OP_ITS ---
DATE OF SERVICE: 09/02/2025 SURGEON: Bradley Bell MD INDICATIONS: Colon cancer screening and abnormal CT scan of the colon. PREOPERATIVE DIAGNOSIS: POSTOPERATIVE DIAGNOSIS: PROCEDURE PERFORMED: Colonoscopy to the terminal ileum with biopsy. ESTIMATED BLOOD LOSS: COMPLICATIONS: ANESTHESIA: Monitored anesthesia care. ASSISTANTS: SPECIMENS: DESCRIPTION OF PROCEDURE: A history and physical was performed. The risks and benefits of the procedure were explained to the patient. Informed consent was obtained. The patient was placed in the left lateral decubitus position. A digital rectal exam was performed and was found to be normal. The Olympus pediatric video colonoscope was introduced into the rectum and advanced to the cecum. The cecum was identified by transillumination, palpation, and identification of ileocecal valve. Examination was performed. The scope was removed. He tolerated the procedure well and was returned to the recovery area in stable condition. FINDINGS: The terminal ileum was briefly examined and appeared normal. The visualized colonic mucosa was normal. The quality of the prep was good. There was no evidence of colitis. Random biopsies were obtained from the sigmoid. Two polyps were identified and removed with a biopsy forceps. Both measured less than 5 mm and were located in the cecum and hepatic flexure. There was mild diverticulosis involving the sigmoid. Retroflexed examination showed moderate-sized internal hemorrhoids. IMPRESSION: Colon polyps. RECOMMENDATION: Follow up the biopsy results. MD ROSEANNE Andrade/CLARISSA / [id number]
== END 2025-09-02 11:17 | disposition home or self-care (01) ==
PROVIDERS: PCP Internal Medicine; Visit Provider Internal Medicine Gastroenterology
PROC: 0DJD8ZZ Inspection of Lower Intestinal Tract, Via Natural or Artificial Opening Endoscopic (ICD-10-PCS; CPT 45378; principal; 2025-09-02 09:50)
DX: R93.3 Abnormal findings on diagnostic imaging of other parts of digestive tract (principal); Z80.0 Family history of malignant neoplasm of digestive organs; Z87.19 Personal history of other diseases of the digestive system; K57.30 Diverticulosis of large intestine without perforation or abscess without bleeding; D12.0 Benign neoplasm of cecum; D12.3 Benign neoplasm of transverse colon; K64.8 Other hemorrhoids; K52.9 Noninfective gastroenteritis and colitis, unspecified
CPT/HCPCS: 45380; 88305; J2003; J2704

== ENCOUNTER 2025-10-15 10:06 | Outpatient (AMB) | payer MEDICARE, BC, SELFPAY ==
--- OUTSIDE RECORDS SUMMARY | 2025-09-02 05:00 | XMS_ITS ---
Author Organization [facility] Address [address] [place] [address] Care Team Providers Care Catheter Finisher And Inspector Name Role Phone MANNY VASQUEZ Primary Care Provider Bradley Lopez Jr [phone] REASON FOR VISIT abn findings GI tract,colon Encounters Encounter Location Date Provider Diagnosis [facility] [place] [address] [place] [phone] 09/02/2025 Bradley Bell Jr Plan Of Treatment No Information Progress Notes * ARNOLDO MEDEL PDOB: [birth year] (75 yo M)Acc No.[id number]:09/02/2025 COLON WITH MAC Patient: Diana ARNOLDO IGNACIO Provider: Neelima Bell MD :1950 A ge:75 Y S ex:Male Date:09/02/2025 Address:[address] [facility] [address] [facility] Pcp:MANNY VASQUEZ Subjective: * Chief Complaints: * a bn findings GI tract,colon Billing Information: * Procedure Codes: * The named appointment provid er may or may not be the originator of this progress note, and it is not deemed complete until electronically signed by the appointment provider. Sign off status: Pending * Provider: Neelima Bell MD Date: Generated for Vadimi ng/Fachristinag/eTransmitting on: 12/15/2024 07:06 PM EST
--- NOTE | 2025-10-15 10:08 | A.OFFPC_ITS ---
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 Accompanied by: Self / Same As Patient Allergies No Known Allergies Allergy (Verified 10/15/25 10:08) Medication List - Last Reconciled 10/15/25 by Nico Otto MD amlodipine 10 mg PO DAILY dicyclomine 20 mg PO BID ibuprofen 800 mg PO BID PRN lisinopril 10 mg PO DAILY mirtazapine 7.5 mg PO BEDTIME omeprazole 20 mg PO DAILY tizanidine 2 mg PO .daily qhs Tobacco use date assessed: 05/26/25 Fall risk assessment: 1 Fall in past year Last assessed Fall Risk: 10/15/25 Dental Screening Dental Screen Date: 05/26/25 HPI HPI Comments History of Present Illness Details History of Present Illness The patient is a 75-year-old male presenting for an annual physical examination and management of chronic conditions. The patient has a history of hypertension and is currently taking amlodipine 10 mg and lisinopril 10 mg. His blood pressure has been running high, with elevated readings noted in April and August. His other chronic conditions include irritable bowel syndrome managed with dicyclomine, acid reflux managed with omeprazole, and muscle pains managed with tizanidine. He takes mirtazapine for sleep and anxiety and was advised not to take zolpidem concurrently, for which he has a prescription. The patient has a history of an enlarged prostate but is not currently taking any medication for it, and reports normal urinary function. He underwent a colonoscopy last month. Blood work from six months ago showed a high white blood cell count. The patient is a former smoker who quit 20 years ago and has received his influenza and COVID-19 vaccinations. Medical History: - Hypertension - Irritable bowel syndrome - Insomnia - Anxiety - Gastroesophageal reflux disease - Muscle pain - Benign prostatic hyperplasia - History of leukocytosis six months ago Surgical History: - Colonoscopy performed last month. Medications: - Amlodipine 10 mg for hypertension - Lisinopril 10 mg for hypertension - Dicyclomine for irritable bowel syndro me - Mirtazapine for insomnia and anxiety - Omeprazole for acid reflux - Tizanidine for muscle pain - Zolpidem (Ambien), has a prescription but was instructed not to take it Diagnostic Results: - In-office blood pressure: 162/64 mmHg. - Past labs: Blood work from six months ago showed an elevated white blood cell count. Social History - Substance Use: Former smoker, quit 20 years ago. - Functional Status: Advised to remain a ctive. - Nutritional Intake: Advised to reduce salt intake. - Weight Management: Advised to lose alida ght. - Travel: Reports upcoming travel to [facility] from November 01 to . [facility] Medical History (Updated 10/15/25 @ 10:33 by Nico Otto MD) Annual physical exam GERD without esophagitis BPH NOS w/o ur obs/LUTS Kidney stones Enlarged prostate Hyperlipidemia Renal disease Lung disease Colitis History of COVID-19 Irritable bowel syndrome (IBS) Arthritis Elevated cholesterol HTN (hypertension) GERD (gastroesophageal reflux disease) Nocturnal hypoxemia OLI (obstructive sleep apnea) Obesity (BMI 30-39.9) Surgical History (Updated 10/13/25 @ 17:37 by Camille Vallecillo) Hx of foot surgery Hx of appendectomy H/O colonoscopy (~09/02/25) Family History Mother No problems noted. Father No problems noted. Social History Household Members: Spouse Housing: [facility] Alcohol intake: current Alcohol intake frequency: holidays/special occasions only Patient Tobacco Use Status: Former Tobacco user Years Smoked: 10 years e-Cigarette/Vaping Use: Never Used service: No Current occupational status: retired Cognitive needs: No Hearing needs: No Vision needs: Yes (rx glasses) Questionnaire PHQ-9 Over the last 2 weeks, how often have you been bothered by any of the following problems? 1. Little interest or pleasure in doing things: not at all 2. Feeling down, depressed, or hopeless: not at all 3. Trouble falling or staying asleep, or sleeping too much: not at all 4. Feeling tired or having little energy: not at all 5. Poor appetite or overeating: not at all 6. Feeling bad about yourself - or that you are a failure or have let yourself or your family down: not at all 7. Trouble concentrating on things, such as reading the newspaper or watching television: not at all 8. Moving or speaking so slowly that other people could have noticed. Or the opposite - being so fidgety or restless that you have been moving around a lot more than usual: not at all Depression Screening Interpretation: Negative Depression Screening Done: Yes 37228 - PHQ-9 Billing: Yes Source: Developed by Drs. Toño Stovall, Monica Back, Jose Bradshaw and colleagues, with an educational rosibel from [employer]. Thrive Questionnaire Date Thrive assessed: 10/15/25 I am a: Patient What is your living situation today?: I have a steady place to live Within the past 12 months, did the food you bought not last and you didn't have the money to get more?: Never true Within the past 12 months, did you worry whether your food would run out before you got money to buy more?: Never true Do you have trouble paying for medicines?: No Do you have trouble getting transportation to medical appointments?: No Do you have trouble paying your heating and electricity bill?: No Do you have trouble taking care of your child, family member or friend?: No Do you have trouble with day-to-day activities such as bathing, preparing meals, shopping, managing finances, etc.?: No Are you currently unemployed and looking for a job?: No Are you interested in more education?: No THRIVE Score: 0 AUDIT C Alcohol Use Questionnaire (AUDIT-C) 1. How often do you have a drink containing alcohol?: Never Total Score: 0 Score Reviewed/Action Taken: Yes SRIKANTH-7 AMB Questionnaire SRIKANTH-7 Date SRIKANTH - 7 assessed: 10/15/25 Feeling nervous, anxious, or on edge: 0 = Not at all Not being able to stop or control worryin = Not at all Worrying too much about different things: 0 = Not at all Trouble relaxin = Not at all Being so restless that it is hard to sit still: 0 = Not at all Becoming easily annoyed or irritable: 0 = Not at all Feeling afraid as if something awful might happen: 0 = Not at all Total SRIKANTH-7 score (0-4 normal; 5-9 mild; 10-14 moderate; 15-21 severe): 0 Source: Developed by Drs. Toño Stovall, Monica Back, Jose Bradshaw and colleagues, with an educational rosibel from [employer]. SRIKANTH-7 Assessment Billing SRIKANTH-7 Assessment Tool: SRIKANTH-7 Assessment 88441 Review of Systems Narrative Review of Systems - Constitutional: Reports occasionally not feeling 100% and feeling as if he is developing a cold. - Genitourinary: Reports normal urination. - Gastrointestinal: Reports normal bowel movements. - Psychiatric: Reports good mood. All systems reviewed & are unremarkable except as reviewed in HPI and above Physical exam (Primary Care) Vital Signs: Last Vital Signs Temp 98.5 F 10/15/25 10:14 Pulse 63 10/15/25 10:14 Resp 20 10/15/25 10:14 BP 162/64 H 10/15/25 10:14 Pulse Ox 97 10/15/25 10:14 Oxygen Delivery Method Room Air 10/15/25 10:14 BMI result Body Mass Index 31.9 Tobacco/Smoking Status: Tobacco use Status Tobacco use date assessed 05/26/25 10/15/25 10:10 Patient Tobacco Use Status Former Tobacco user 10/15/25 10:10 e-Cigarette/Vaping Use Never Used 10/15/25 10:16 Depression Screening Interpretation: Negative Thrive Assessment: Date of Thrive Assessment Date Thrive assessed 10/15/25 10/15/25 10:29 Narrative Physical Exam General: +Alert and oriented, Well nourished, No acute distress. Eye: Pupils are equal, round and reactive to light, Intact accommodation, Extraocular movements are intact, Normal conjunctiva, Vision unchanged. HENT: Normocephalic, Atraumatic, Tympanic membranes are clear, Normal hearing, Oral mucosa is moist, No pharyngeal erythema, Ear canals patent. Respiratory: Lungs CTA bilaterally, No wheeze, Respirations are non-labored. Cardiovascular: Regular rate, Regular rhythm, S1 auscultated, S2 auscultated, No murmur, Good pulses equal in all extremities, Normal peripheral perfusion, No edema. Blood pressure is high at 162/64. Gastrointestinal: Soft, Non-tender, Non-distended, Normal bowel sounds, No organomegaly. Musculoskeletal: Normal range of motion, Normal strength, No tenderness, No swelling, No deformity, Normal gait. Integumentary: Warm, Dry, Silo, Intact. Neurologic: Alert, Oriented, Normal sensory, Normal motor function, No focal defects, Cranial Nerves II-XII are grossly intact, Normal deep tendon reflexes. Psychiatric: Cooperative, Appropriate mood & affect, Normal judgment. Mood is good otherwise. Coding Level of Care Code Est Pt Level 4 (17100) Est Pt Prev Care >65y(90578) Diagnoses Primary hypertension I10 Hypertension type: primary hypertension BPH NOS w/o ur obs/LUTS N40.0 GERD without esophagitis K21.9 OLI (obstructive sleep apnea) G47.33 Annual physical exam Z00.00 Additional Codes SRIKANTH-7 Assessment Billing - SRIKANTH-7 Assessment Tool: SRIKANTH-7 Assessment 68428 ([id number]) PHQ-9 - 46992 - PHQ-9 Billing: Yes ([id number]) Comment [id number] Assessment & Plan Assessment & Plan (1) HTN (hypertension): Comment: - The patient's blood pressure is elevated at 162/64 mmHg, consistent with persistently high readings. - The plan is to increase the lisinopril dose from 10 mg to 20 mg. - The patient has been instructed to acquire a home blood pressure cuff to monitor readings. - A follow-up is scheduled in four weeks to re-evaluate. Code(s): I10 - Essential (primary) hypertension Category: Medical Qualifiers: Hypertension type: primary hypertension Qualified Code(s): I10 - Essential (primary) hypertension (2) BPH NOS w/o ur obs/LUTS: Comment: - The patient has a known history but is not on medication and reports normal urination. - No changes to management are planned at this time. Code(s): N40.0 - Benign prostatic hyperplasia without lower urinary tract symptoms Category: Medical (3) GERD without esophagitis: Comment: - Stable on Omeprazole with no active symptoms Code(s): K21.9 - Gastro-esophageal reflux disease without esophagitis Category: Medical (4) OLI (obstructive sleep apnea): Comment: - Complaint with CPAP Code(s): G47.33 - Obstructive sleep apnea (adult) (pediatric) Category: Medical (5) Annual physical exam: Comment: - This visit has been designated as the patient's annual physical. - Comprehensive blood work has been ordered for today. - The patient was counseled on lifestyle modifications including weight loss, salt reduction in diet, and maintaining physical activity. - He is current on his influenza and COVID-19 immunizations. Code(s): Z00.00 - Encounter for general adult medical examination without abnormal findings Category: Medical Plan: Health Maintenance: - Annual Physical Exam: This visit serves as the patient's annual physical for the year. - Immunizations: Patient is up-to-date with flu and COVID-19 shots. - Screening: Patient had a colonoscopy last month. - Lifestyle Counseling: Advised on the importance of staying active, losing weight, and reducing salt intake. - Diagnostic Screening: Comprehensive blood work was ordered. Patient was informed and verbally consented to the use of an ambient scribe for clinic note documentation during this visit. Vital signs reviewed. Comprehensive history, review of systems, and physical exam completed. Medications, allergies, and problem list reviewed and updated. Counseling provided on nutrition, regular exercise, sleep hygiene, and moderation of alcohol use. Discussed age-appropriate screenings (mammogram, colonoscopy, Pap, bone density) and immunizations (flu, COVID, shingles, Tdap). Screened for depression, fall risk, and home safety; no current concerns. Discussed stress management, dental and vision care, and importance of ongoing preventive follow-up. Routine labs ordered for metabolic and lipid screening. Patient educated on healthy lifestyle and agrees with the plan. Plan I reviewed the patient's current medications and discussed his elevated blood pressure reading of 162/64 mmHg. I explained that due to a history of persistent hypertension, I am increasing his lisinopril dose from 10 mg to 20 mg and have sent a new prescription to his pharmacy. I instructed him to purchase an automatic blood pressure cuff to monitor his pressures at home. We discussed that he should not take zolpidem (Ambien) in combination with his mirtazapine. I ordered comprehensive blood work for today and advised him on the benefits of weight loss, salt reduction, and staying active. We scheduled a follow-up appointment in approximately four weeks, after his planned travel, to review lab results and reassess his blood pressure. Orders: Orders Comprehensive Met. Panel Today Z00.00 - Encounter for general adult medical examination without abnormal findings Microalbumin, Random (w Creat) Today Z00.00 - Encounter for general adult medical examination without abnormal findings Vitamin D 25-OH Total Today Z00.00 - Encounter for general adult medical examination without abnormal findings HIV Ab/Ag Today Z00.00 - Encounter for general adult medical examination without abnormal findings Hepatitis A,B,C Profile Today Z00.00 - Encounter for general adult medical examination without abnormal findings Complete Blood Count Auto Diff Today Z00.00 - Encounter for general adult medical examination without abnormal findings Hemoglobin A1c Today Z00.00 - Encounter for general adult medical examination without abnormal findings Lipid Panel Today Z00.00 - Encounter for general adult medical examination without abnormal findings TSH reflex Free T4 Today Z00.00 - Encounter for general adult medical examination without abnormal findings Syphilis Screen Today Z00.00 - Encounter for general adult medical examination without abnormal findings Medications: New lisinopril 20 mg PO DAILY 30 tabs 0RF Patient Instructions: - Your dose of lisinopril is being increased to 20 mg. A new prescription has be en sent to your pharmacy. - Do not take Ambien (zolpidem) at the same time as mirtazapine. Continue taking only mirtazapine for sleep. - Please purchase an automatic blood pressure cuff from the pharmacy and start checking your blood pressure at home. - You need to have blood work done today. Please go to the lab across the epperson after your visit. - It is important to work on losing weight, reducing salt in your diet, and staying active. - Please go to the front services agent to schedule a follow-up appointment in about one month.
[2025-10-15 10:14] VITALS: BP 162/64; PULSE 63; RESP 20; TEMP 36.9; O2SAT 97; BMI 31.9
--- OUTSIDE RECORDS SUMMARY | 2025-10-15 19:06 | XMS_ITS | Clinical Summary ---
Author Organization [facility] Address [address] [place] [address] Care Team Providers Care Cardiology Technologist Name Role Phone Unavailable Primary Care [...] - 1-dose 75+ series) 2024 COVID-19 Vaccine (2024-2 6 season) 2025 Influenza (#1) 2025 HPV Vaccine [...] (Zostavax) Discontinued Insurance MEDICARE PART B [facility] FFS FEDERAL
--- OUTSIDE RECORDS SUMMARY | 2025-10-15 19:07 | XMS_ITS | Patient Health Record ---
Author Organization [facility] Address [address] [place] [address] Care Team Providers Care Assurance Associate Name Role Phone PEDRO MANNY Primary Care Provider Bradley Lopez Jr Unavailable [phone] Allergies No Known Allergies Results Component Value Reference Range Notes Pathology Reviewed date:09/04/2025 08:27:22 AM Interpretation: Performing Lab:[facility], [address] [place] [id number] Notes/Report: Reason For Referral No Information Medications Medication SIG (Take, Route, Frequency, Duration) Notes Start Date End Date Status Dicyclomine HCl 20 MG Tablet 1 tablet Orally 2-4 times a day 03/24/2021 Unknown MiraLax (colon prep) 8.3 ounce ((238) grams mixed with Gatorade or Crystal Light orally begin at 5:00 p.m. the day before the procedure; Duration: 1 day 03/24/2021 Unknown Dicyclomine HCl 20 MG Tablet 1 tablet Orally 2-4 times a day; Duration: 30 days 07/30/2025 Active oxyCODONE HCl 5 MG Tablet TAKE 1 TABLET EVERY 8 HOURS NEEDED Oral; Duration: 5 Days Not-Taking/PRN amLODIPine Besylate 10 MG Tablet TAKE 1 TABLET BY MOUTH EVERY DAY Oral; Duration: 90 Days Active oxyCODONE HCl 5 MG Tablet TAKE 1 TABLET EVERY 8 HOURS NEEDED Oral; Duration: 5 Days Active Lisinopril 10 MG Tablet TAKE 1 TABLET BY MOUTH EVERY DAY Oral; Duration: 90 Days Active Mirtazapine 7.5 MG Tablet TAKE 1 TABLET BY MOUTH AT BEDTIME Oral; Duration: 90 Days Active tiZANidine HCl 2 MG Tablet Oral; Duration: 90 Days Active Cefuroxime Axetil 500 MG Tablet TAKE 1 TABLET BY MOUTH TWICE A DAY FOR 7 DAYS Oral; Duration: 7 Days Active traMADol HCl 50 MG Tablet Oral; Duration: 7 Days Active Omeprazole 20mg Capsule Delayed Release 1 capsule Orally Once a day Unknown amLODIPine Besylate 10 MG Tablet 1 tablet Orally Once a day Unknown Ibuprofen 800 MG Tablet Orally PRN Unknown Zolpidem Tartrate 10 MG Tablet Orally PRN Unknown Simvastatin 20 MG Tablet 1 tablet in the evening Orally Once a day Unknown Lisinopril 10 MG Tablet 1 tablet Orally Once a day Unknown Immunizations Vaccine Route Administration Date Status Comme nts Flu vaccine no Preserv 3 and > Unknown 08/19/2014 Admin istered Influenza Unknown 09/09/2020 Administered Influenza Unknown 09/10/2024 Administered Social History Social History Additional Details Category Social Info Options Details Miscellaneous: Marital status: Occupation: retired Problems Problem Type SNOMED Code ICD Code Onset Dates Problem Status W/U Status Risk Notes Problem Colon cancer screening (279519271) Colon cancer screening (Z12.11) Active confirmed Problem Family History of Cancer of Colon (Situation) (273695102) Family history of colon cancer (Z80.0) Active confirmed Problem Irritable bowel syndrome (11627985) Irritable bowel syndrome, unspecified type (K58.9) Active confirmed Vital Signs Temperature 98.7 degrees Fahrenheit 07/30/2025 Blood pressure diastolic 01 mm Hg 07/30/2025 Height 65 in 07/30/2025 Blood pressure systolic 001 mm Hg 07/30/2025 Weight 193 lbs 07/30/2025 BMI 32.11 kg/m2 07/30/2025 Encounters Encounter Location Date Provider Diagnosis [facility] [address], [place] [id number] 09/02/2025 Bradley Bell Jr [facility] [address] [place] [phone] 07/30/2025 Bradley Bell Jr Abn findings-GI tract R93.3 [facility] [address] [place] [phone] 07/30/2025 Bradley Bell Jr [facility] [address] [place] [phone] 09/04/2025 Bradley Bell Jr Assessments Encounter Date Diagnosis (ICD Code) Assessment [...] 04/12/2012 COLONOSCOPY 08/19/2015 COLONOSCOPY 03/24/2021 COLONOSCOPY 07/30/2025 Insurance Providers Payer Name Payer Address Payer Phone Subscriber Number Group Number Insured Name Patient Relationship to Insured Coverage Start Date Coverage End Date MEDICARE OF [place] [address] [place] [address] [id number] ARNOLDO MEDEL Self - patient is the insured [facility] [address] [place], [place] [id number] ARNOLDO MEDEL Self - patient is the insured Medical (General) History Medical History History ICD Code Colonoscopy 01/28/2000 Colonoscopy 05/19/2006 [address] Den[address],DM,CVA,Lung disease,renal dise ase hyperlipidemia acid reflux Arthritis colitis enlarged prostate kidney stones Surgical History Surgery Date(Month/Year) Appendectomy
== END 2025-10-15 10:32 | disposition home or self-care (01) ==
PROVIDERS: PCP Student in an Organized Health Care Education/Training Program; Visit Provider Student in an Organized Health Care Education/Training Program
DX: Z00.00 Encounter for general adult medical examination without abnormal findings (principal); I10 Essential (primary) hypertension; N40.0 Benign prostatic hyperplasia without lower urinary tract symptoms; K21.9 Gastro-esophageal reflux disease without esophagitis; G47.33 Obstructive sleep apnea (adult) (pediatric)

== ENCOUNTER → 2025-10-15 10:06 | Outpatient (BNVA) | payer MEDICARE, BC, SELFPAY | PROVIDERS: PCP Internal Medicine; Visit Provider Student in an Organized Health Care Education/Training Program | DX: Z00.00 Encounter for general adult medical examination without abnormal findings (principal); I10 Essential (primary) hypertension; G47.33 Obstructive sleep apnea (adult) (pediatric); Z99.89 Dependence on other enabling machines and devices; K21.9 Gastro-esophageal reflux disease without esophagitis; N40.0 Benign prostatic hyperplasia without lower urinary tract symptoms; Z13.30 Encounter for screening examination for mental health and behavioral disorders, unspecified; Z13.1 Encounter for screening for diabetes mellitus | CPT/HCPCS: 36415; 80053; 80061; 82043; 82306; 82570; 83036; 84443; 85025; 86704; 86706; 86709; 86780; 86803; 87340; 87389; 96127; 99212; 99397 ==

== ENCOUNTER 2025-10-15 10:34 | Outpatient (REF) | payer MEDICARE, BC, SELFPAY ==
[2025-10-15 13:08] LABS: MANUAL DIFF FLAG NO
[2025-10-15 13:32] LABS: Hematocrit 47.3 % (42.0-52.0); Hemoglobin 15.6 g/dl (14.0-18.0); Imm Gran Pct Auto 0.2 % (0.0-0.4); Mean Corpuscular HGB Conc 33.0 g/dl (31.0-36.0); Mean Corpuscular Hemoglobin 27.7 pg (27.0-33.0); Mean Corpuscular Volume 84.0 fL (80.0-98.0); Platelet Count 322 X10*3/uL (160-400); Red Blood Count 5.63 X10*6/uL (4.60-5.80); White Blood Count 8.7 X10*3/uL (4.8-10.8)
[2025-10-15 13:33] LABS: Imm Gran Abs Auto 0.02 X10*3/uL (0.00-0.03); Lymphocytes Absolute Auto 2.3 X10*3/uL (1.2-4.9); NRBC Abs Auto 0.000 X10*3/uL (0.0-0.012); NRBC Pct Auto 0.0 /100WBC (0.0-0.2)
[2025-10-15 14:35] LABS: Microalbum/Creatinine Ratio Ur 10.1 ug/mg cr (<30)
[2025-10-15 15:20] LABS: Alanine Aminotransferase 24 U/L (0-40); Albumin Level 4.7 g/dL (3.5-5.0); Alkaline Phosphatase 107 U/L (39-117); Anion Gap 11 (12-20); Aspartate Amino Transferase 25 U/L (5-37); Blood Urea Nitrogen 12 mg/dL (9-16); Calcium 9.1 mg/dL (8.4-10.2); Carbon Dioxide 24 mmol/L (22-29); Chloride 104 mmol/L (96-108); Cholesterol 211 mg/dL (<200); Estimated Glomerular Filt Rate > 60; HDL Cholesterol 45 mg/dL (>40); Potassium 4.0 mmol/L (3.3-5.1); Sodium 135 mmol/L (135-145); Total Protein 7.5 g/dL (6.5-8.0); Triglycerides 152 mg/dL (<150)
[2025-10-16 08:40] LABS: Syphilis Screen Nonreactive (Nonreactive)
[2025-10-16 08:48] LABS: HBS Num1 11.66 mIU/mL (0-7.99); HBc Num1 0.06 S/CO (0.00-0.79); HBsAGNum1 0.44 S/CO (0.00-0.99); HIV Num 1 0.06 S/CO (0.00-0.99); Hepatitis A Antibody IgM 0.16 Index (0-0.79); Hepatitis B Surface Antigen Negative (Negative); ~HepC Num1 0.12 S/CO (0.00-0.79); ~Hepatitis A Antibody IgM Nonreactive (Nonreactive); ~Hepatitis C Antibody Nonreactive (Nonreactive)
[2025-10-16 11:59] LABS: HBS Num2 11.25 mIU/mL (0-7.99); HBS Num3 11.37 mIU/mL (0-7.99); ~Hepatitis B Surface Antibody GRAYZONE (Nonreactive)
== END 2025-10-15 10:35 | disposition home or self-care (01) ==
LOC: HO.10HDL 10:34
PROVIDERS: Visit Provider Student in an Organized Health Care Education/Training Program
DX: Z13.89 Encounter for screening for other disorder (principal)
CPT/HCPCS: 36415; 80053; 80061; 82043; 82306; 82570; 83036; 84443; 85025; 86704; 86706; 86709; 86780; 86803; 87340; 87389

== ENCOUNTER 2025-11-17 09:36 | Outpatient (AMB) | payer MEDICARE, BC, SELFPAY ==
--- OUTSIDE RECORDS SUMMARY | 2025-09-02 05:00 | XMS_ITS ---
Author Organization [facility] Address [address] [place] [address] Care Team Providers Care Outlet Manager Name Role Phone MANNY VASQUEZ Primary Care Provider Bradley Lopez Jr REASON FOR VISIT abn findings GI tract,colon Encounters Encounter Location Date Provider Diagnosis [facility] Outpatient [address] [place] [phone] 09/02/2025 Bradley Bell Jr Plan Of Treatment No Information Progress Notes * ARNOLDO MEDEL PDOB: [birth year] (75 yo M)Acc No.[id number]:09/02/2025 COLON WITH MAC Patient: Diana ARNOLDO IGNACIO Provider: Neelima Bell MD :1950 A ge:75 Y S ex:Male Date:09/02/2025 Address:[address] [facility] Pcp:MANNY VASQUEZ Subjective: * Chief Complaints: * a bn findings GI tract,colon Billing Information: * Procedure Codes: * The named appointment provid er may or may not be the originator of this progress note, and it is not deemed complete until electronically signed by the appointment provider. Sign off status: Pending * Provider: Neelima Bell MD Date: 1 Generated for Vadimi ng/Fachristinag/eTransmitting on: 01/18/2025 11:00 AM EST
--- NOTE | 2025-11-17 09:40 | MHC.PC.OV ---
Vital Signs 11/17/25 09:41 Height 5 ft 5.75 in Weight 197 lb 6 oz BMI 32.1 BP 124/58 L Blood Pressure Location Lt brachial Position Sitting Respiration 16 Pulse 56 Pulse Source Pulse Oximeter Temp 97.7 F Temp Source Temporal Artery Scan Pulse Oximetry (%) 97 Oxygen Delivery Method Room Air Intake Visit Reasons: 1MTH F/U BP Dialysis Biomed Technician Required: No Accompanied by: Self / Same As Patient Allergies No Known Allergies Allergy (Verified 11/17/25 09:40) Medication List - Last Reconciled 11/17/25 by Nico Otto MD amlodipine 10 mg PO DAILY dicyclomine 20 mg PO BID ibuprofen 800 mg PO BID PRN 30 days lisinopril 20 mg PO DAILY mirtazapine 7.5 mg PO BEDTIME omeprazole 20 mg PO DAILY tizanidine 2 mg PO .daily qhs Tobacco use date assessed: 05/26/25 Fall risk assessment: No Falls in past year Last assessed Fall Risk: 11/17/25 Dental Screening Dental Screen Date: 05/26/25 HPI HPI Comments History of Present Illness Details History of Present Illness The patient is a 75 year old male presenting for follow-up and management of hypertension and review of recent lab results. His hypertension has shown significant improvement since the last visit when his blood pressure was in the 160s, with recent home monitoring showing readings in the 120s-130s/60s. This improvement is attributed to an increased medication dosage of lisinopril to 20 mg and amlodipine to 10 mg. A review of recent lab work revealed an A1c of 5.7, indicating prediabetes. His lipid panel was also abnormal, showing hyperlipidemia with triglycerides at 152, total cholesterol at 211, and LDL cholesterol at 103. Other lab results, including blood counts, electrolytes, and kidney function, were normal. The patient also has a history of chronic back pain due to arthritis, for which he takes tizanidine with minimal relief. Other chronic conditions include acid reflux, managed with omeprazole 20 mg, and insomnia, for which he takes mirtazapine 7.5 mg at night. Medical History: - Hypertension - Hyperlipidemia - Prediabetes - Gastroesophageal reflux disease - Arthritis with chronic back pain - Insomnia Medications: - Lisinopril 20 mg for hypertension - Amlodipine 10 mg for hypertension - Mirtazapine 7.5 mg at night for sleep - Omeprazole 20 mg for acid reflux - Tizanidine for muscle pain Diagnostic Results: - Blood counts, electrolytes, and kidney function were normal. - A1c: 5.7% - Triglycerides: 152 mg/dL - Total cholesterol: 211 mg/dL - LDL cholesterol: 103 mg/dL Social History - Diet: Advised to avoid sweet, junk, and processed foods. - Weight management: Advised on the importance of weight loss to improve blood pressure, cholesterol, and prevent progression to diabetes. [facility] Medical History (Updated 11/17/25 @ 09:55 by Nico Otto MD) Chronic back pain Prediabetes Annual physical exam GERD without esophagitis BPH NOS w/o ur obs/LUTS Kidney stones Enlarged prostate Hyperlipidemia Renal disease Lung disease Colitis History of COVID-19 Irritable bowel syndrome (IBS) Arthritis Elevated cholesterol HTN (hypertension) GERD (gastroesophageal reflux disease) Nocturnal hypoxemia OLI (obstructive sleep apnea) Obesity (BMI 30-39.9) Surgical History (Updated 10/13/25 @ 17:37 by Camille Vallecillo) Hx of foot surgery Hx of appendectomy H/O colonoscopy (~09/02/25) Family History Mother No problems noted. Father No problems noted. Social History Household Members: [facility] Alcohol intake: current Alcohol intake frequency: holidays/special occasions only Patient Tobacco Use Status: Former Tobacco user Years Smoked: 10 years e-Cigarette/Vaping Use: Never Used service: No Current occupational status: retired Cognitive needs: No Hearing needs: No Vision needs: Yes (rx glasses) Questionnaire Thrive Questionnaire Date Thrive assessed: 10/15/25 AUDIT C Alcohol Use Questionnaire (AUDIT-C) 1. How often do you have a drink containing alcohol?: Monthly or less 2. How many drinks containing alcohol do you have on a typical day when you are drinking?: 1 or 2 3. How often do you have six or more drinks on one occasion?: Less than monthly Total Score: 2 SRIKANTH-7 AMB Questionnaire SRIKANTH-7 Date SRIKANTH - 7 assessed: 10/15/25 Source: Developed by Drs. Toño Stovall, Monica Back, Jose Bradshaw and colleagues, with an educational rosibel from [employer] Review of Systems Narrative Review of Systems - Musculoskeletal: Reports chronic back pain that worsens with ambulation, attributed to arthritis. - Neurological: Reports taking mirtazapine for sleep. - Gastrointestinal: Reports managed acid reflux. All systems reviewed & are unremarkable except as reviewed in HPI and above Physical exam (Primary Care) Vital Signs: Last Vital Signs Temp 97.7 F 11/17/25 09:41 Pulse 56 11/17/25 09:41 Resp 16 11/17/25 09:41 BP 124/58 L 11/17/25 09:41 Pulse Ox 97 11/17/25 09:41 Oxygen Delivery Method Room Air 11/17/25 09:41 Care Plan Goal for BP management: Pressures in Goal BMI result Body Mass Index 32.1 Tobacco/Smoking Status: Tobacco use Status Tobacco use date assessed 05/26/25 11/17/25 09:44 Patient Tobacco Use Status Former Tobacco user 11/17/25 09:44 e-Cigarette/Vaping Use Never Used 11/17/25 09:44 Thrive Assessment: Date of Thrive Assessment Date Thrive assessed 10/15/25 11/17/25 09:44 Narrative Physical Exam General: +Alert and oriented, Well nourished, No acute distress. Eye: Pupils are equal, round and reactive to light, Intact accommodation, Extraocular movements are intact, Normal conjunctiva, Vision unchanged. HENT: Normocephalic, Atraumatic, Tympanic membranes are clear, Normal hearing, Oral mucosa is moist, No pharyngeal erythema, Ear canals patent. Respiratory: Lungs CTA bilaterally, No wheeze, Respirations are non-labored. Cardiovascular: Regular rate, Regular rhythm, S1 auscultated, S2 auscultated, No murmur, Good pulses equal in all extremities, Normal peripheral perfusion, No edema. Gastrointestinal: Soft, Non-tender, Non-distended, Normal bowel sounds, No organomegaly. Musculoskeletal: Normal range of motion, Normal strength, No tenderness, No swelling, No deformity, Normal gait. Integumentary: Warm, Dry, [place], Intact. Neurologic: Alert, Oriented, Normal sensory, Normal motor function, No focal defects, Cranial Nerves II-XII are grossly intact, Normal deep tendon reflexes. Psychiatric: Cooperative, Appropriate mood & affect, Normal judgment. Coding Level of Care Code Est Pt Level 4 (82819) Add On Problem Visit Only Diagnoses Primary hypertension I10 Hypertension type: primary hypertension Other hyperlipidemia E78.49 Hyperlipidemia type: other hyperlipidemia Prediabetes R73.03 Chronic back pain, unspecified back location, unspecified back pain laterality M54.9; G89.29 Back pain location: back pain in unspecified location Back pain laterality: unspecified Assessment & Plan Assessment & Plan (1) HTN (hypertension): Comment: - Well-controlled on the current regimen of lisinopril 20 mg and amlodipine 10 mg, with a blood pressure reading of 124/58 mmHg. - The plan is to continue the current medication regimen and encourage weight loss for sustained control. Code(s): I10 - Essential (primary) hypertension Category: Medical Qualifiers: Hypertension type: primary hypertension Qualified Code(s): I10 - Essential (primary) hypertension (2) Hyperlipidemia: Comment: - Based on recent labs showing elevated total cholesterol (211), triglycerides (152), and LDL (103), atorvastatin 20 mg will be initiated to be taken nightly. - The patient was counseled on the risk of myalgia and advised to report any muscle pain. - Dietary modification and weight loss were also recommended. Code(s): E78.5 - Hyperlipidemia, unspecified Category: Medical Qualifiers: Hyperlipidemia type: other hyperlipidemia Qualified Code(s): E78.49 - Other hyperlipidemia (3) Prediabetes: Comment: - With an A1c of 5.7, the patient is at risk for developing diabetes. - The plan includes counseling on dietary changes, specifically avoiding sugar and junk food, and promoting weight loss. Code(s): R73.03 - Prediabetes Category: Medical (4) Chronic back pain: Comment: - The patient reports minimal relief from tizanidine. - The plan is to continue the current medication as needed. Code(s): M54.9 - Dorsalgia, unspecified; G89.29 - Other chronic pain Category: Medical Qualifiers: Back pain location: back pain in unspecified location Back pain laterality: unspecified Qualified Code(s): M54.9 - Dorsalgia, unspecified; G89.29 - Other chronic pain Plan: Health Maintenance: - Advised on the importance of weight loss to improve blood pressure, lower cholesterol, and prevent the onset of diabetes. - Counseled to avoid junk food, processed foods, and sugary items as part of dietary modifications. - Scheduled follow-up in 4 months for reassessment of chronic conditions and medication management. Patient was informed and verbally consented to the use of an ambient scribe for clinic note documentation during this visit. Plan I discussed with the patient that his blood pressure is now well-controlled with the increased doses of lisinopril and amlodipine. We reviewed his recent lab results, highlighting that his A1c of 5.7 places him in the prediabetic range, and I emphasized the need to avoid sugars and lose weight to prevent developing diabetes. Due to his high cholesterol levels, I prescribed atorvastatin 20 mg to be taken at night. I explained the risk of muscle soreness with this medication and instructed him to stop it and contact the office if he experiences any pain. We agreed that he would work on his diet by avoiding junk food and that he would return for a follow-up visit in four months. Medications: New atorvastatin (Lipitor) 20 mg PO BEDTIME 90 tabs 1RF Patient Instructions: - Continue taking your lisinopril 20 mg and amlodipine 10 mg for your blood pressure. - Start taking atorvastatin 20 mg every night for your high cholesterol. - If you have any muscle aches or pains after starting atorvastatin, stop taking it and call our office. - You are very close to becoming diabetic. - It is important to avoid sweet foods, junk food, and processed foods. - Try to lose some weight, as this will help your blood pressure, cholesterol, and blood sugar. - Please schedule a follow-up appointment to be seen in 4 months.
[2025-11-17 09:41] VITALS: BP 124/58; PULSE 56; RESP 16; TEMP 36.5; O2SAT 97; BMI 32.1
--- OUTSIDE RECORDS SUMMARY | 2025-11-17 11:00 | XMS_ITS | Clinical Summary ---
Author Organization [facility] Address [address] [place] [address] Care Team Providers Care Control Room Tender Name Role Phone Unavailable Primary Care Provider [...] Zoster (Zostavax) Discontinued Insurance MEDICARE PART B [facility] FFS FEDERAL
--- OUTSIDE RECORDS SUMMARY | 2025-11-17 11:01 | XMS_ITS | Patient Health Record ---
Author Organization [facility] Address [address] [place] [address] Care Team Providers Care Early Head Start Teacher Name Role Phone PEDRO MANNY Primary Care Provider Bradley Lopez Jr Unavailable Allergies No Known Allergies Results Component Value Reference Range Notes Pathology Reviewed date:09/04/2025 08:27:22 AM Interpretation: Performing Lab:[facility], [address] [place] [id number] Notes/Report: Reason For Referral No Information Medications [...] Status Risk Notes Problem Colon cancer screening (425203792) Colon cancer screening (Z12.11) Active confirmed Problem Family History of Cancer of Colon (Situation) (324373318) Family history of colon cancer (Z80.0) Active confirmed Problem Irritable bowel syndrome (33219206) Irritable bowel syndrome, unspecified type (K58.9) Active confirmed Vital Signs Temperature 98.7 degrees Fahrenheit 07/30/2025 Blood pressure diastolic 01 mm Hg 07/30/2025 Height 65 in 07/30/2025 Blood pressure systolic 001 mm Hg 07/30/2025 Weight 193 lbs 07/30/2025 BMI 32.11 kg/m2 07/30/2025 Encounters Encounter Location Date Provider Diagnosis [facility] Outpatient [address] [place], [place] [id number] 09/02/2025 Bradley Bell Jr [facility] [address] [place] [phone] 07/30/2025 Bradley Bell Jr Abn findings-GI tract R93.3 [facility] [address] [place] [phone] 07/30/2025 Bradley Bell Jr [facility] [address] [place] [phone] 09/04/2025 Bradley Bell Jr Assessments Encounter Date [...] [place] [address] [place] [address] [id number] ARNOLDO MEDEL Self - patient is the insured [facility] [address] [place], [place] [id number] ARNOLDO MEDEL Self - patient is the insured Medical (General) History Medical History History ICD Code Colonoscopy 01/28/2000 Colonoscopy 05/19/2006 Hypertension Appendectomy Denies MO,DM,CVA,Lung disease,renal dise ase hyperlipidemia acid reflux Arthritis colitis enlarged prostate kidney stones Surgical History Surgery Date(Month/Year) Appendectomy
== END 2025-11-17 09:52 | disposition home or self-care (01) ==
LOC: HO.HMCHD 09:36
PROVIDERS: PCP Internal Medicine; Visit Provider Student in an Organized Health Care Education/Training Program
DX: I10 Essential (primary) hypertension (principal); E78.49 Other hyperlipidemia; R73.03 Prediabetes; M54.9 Dorsalgia, unspecified; G89.29 Other chronic pain

== ENCOUNTER → 2025-11-17 09:36 | Outpatient (BNVA) | payer MEDICARE, BC, SELFPAY | PROVIDERS: PCP Internal Medicine; Visit Provider Student in an Organized Health Care Education/Training Program | DX: I10 Essential (primary) hypertension (principal); E78.49 Other hyperlipidemia; R73.03 Prediabetes; M54.9 Dorsalgia, unspecified; G89.29 Other chronic pain | CPT/HCPCS: 99212 ==